=== PATIENT | male | born 1950 | race Caucasian/White ===

== ENCOUNTER 2025-05-21 10:18 | Inpatient (IN) | payer OTHER, SELFPAY ==
[2025-05-20 22:48] VITALS: BMI 32.9
[2025-05-20 23:00] VITALS: BP 105/54
[2025-05-20 23:05] LABS: Hematocrit 23.5 % (39.0-52.0); Hemoglobin 8.0 g/dL (13.0-18.0); Mean Corp Hgb Conc. 34.0 g/dL (33.0-37.0); Mean Corpuscular Volume 83.9 fL (80.0-94.0); Nucleated Red Blood Cells % 0 % (-); Platelet Count 206 10^3/uL (130-400); Red Cell Dist. Width 13.7 % (11.5-14.5)
[2025-05-20 23:23] LABS: ALT (SGPT) 16 U/L (0-50); AST (SGOT) 24 U/L (17-59); Albumin 3.4 g/dl (3.5-5.0); Alkaline Phosphatase 40 U/L (38-126); Blood Urea Nitrogen 43 mg/dl (9-20); Calcium 9.0 mg/dl (8.4-10.2); Carbon Dioxide 28 mmol/L (22-30); Chloride 100 mmol/L (98-107); Estimated Creatinine Clearance 82 ml/min; Glucose 90 mg/dl (70-99); Potassium 4.6 mmol/L (3.5-5.1); Sodium 131 mmol/L (135-145); Total Protein 5.5 g/dl (6.3-8.2); eGFR > 60.00
[2025-05-20 23:36] LABS: Troponin I 0.013 ng/ml
[2025-05-20 23:57] VITALS: BP 142/66
[2025-05-21] VITALS (19 sets, daily range): BP systolic 100–150; BP diastolic 52–77; PULSE 72–82; BMI 28.1
--- NOTE | 2025-05-21 00:59 | ED.GENMED ---
History of Present Illness
General
Chief Complaint: Chest Pain
Source: patient
Exam Limitations: none
Time Seen by Provider: 05/20/25 23:04
Nursing documentation reviewed up to this point in time: agreed with
History of Present Illness
History of Present Illness:
Note:
CHIEF COMPLAINT(S)
Faintness, chest pain, and light-headedness.
HISTORY OF PRESENT ILLNESS
The patient is a 74-year-old male who presents with symptoms of faintness, chest pain, and light-headedness over the past 24 hours. The symptoms are particularly noticeable when standing up, necessitating the patient to sit down to recover. The
patient reports a significant episode of feeling faint at 2:00 AM while getting up to use the bathroom. Around 9:30 PM, while sitting down, the patient experienced chest pain, which intensified while ascending the stairs, rated as a 9 or 10 in
severity. The patient has a history of a myocardial infarction 27 years ago and has two stents in the right coronary artery. The patient is followed by a alligator hunter in [place]. The patient denies any recent episodes of blood in the stool,
though notes having a dark stool this morning. The patient also mentions a history of feeling dizzy, attributing previous incidents to a viral cause.
PAST MEDICAL AND SURGICAL HISTORY
The patient has a history of myocardial infarction, with two coronary artery stents placed. Also, the patient had his left shoulder replaced and was previously admitted for severe constipation. There is a history of aortic stenosis.
ADDITIONAL HISTORY OBTAINED FROM SOURCES OTHER THAN THE PATIENT
The patient�s family member noted a shared experience of dizziness, implying a possible viral cause, though the patient remains symptomatic.
CHRONIC MEDICAL CONDITIONS SIGNIFICANTLY AFFECTING CARE
Coronary artery disease with a history of stents.
Aortic stenosis with a known murmur.
MEDICATIONS
The patient is on Atorvastatin, daily aspirin, and Valsartan.
REVIEW OF SYSTEMS
- Cardiovascular: Reports chest pain, with past episodes similar to previous myocardial infarction symptoms.
- Gastrointestinal: Dark stool noted this morning.
- Neurological: Reports periods of faintness and light-headedness.
PHYSICAL EXAM
General: Alert, no acute distress, but reported as appearing pale.
Skin: Warm, dry. pale
Head: Normocephalic, atraumatic.
Neck: Supple, trachea midline.
Eye, Ears, Nose, Mouth and Throat: Oral mucosa moist.
Cardiovascular: Normal peripheral perfusion, no edema. systolic murmur
Respiratory: Respirations are non-labored.
Gastrointestinal: Abdomen nondistended.
Back: Normal range of motion, normal alignment.
Musculoskeletal: Normal range of motion, normal strength.
Neurological: Alert and oriented to person, place, time, and situation, no focal neurological deficit observed.
Psychiatric: Cooperative, appropriate mood & affect.
PROBLEM LIST
Acute Problems:
- Chest pain with presumed cardiac origin.
- Faintness and light-headedness.
Chronic Problems:
- Coronary artery disease.
- Aortic stenosis.
PLAN
- Full cardiac workup including labs and EKG comparison with prior records.
- Consideration for anemia due to appearance and symptoms; will investigate further with laboratory tests.
- Consultation with the patient�s alligator hunter and review of previous cardiac testing, if possible.
- Observation and further assessment to determine the need for a stress test, with a preference for a nuclear stress test to avoid false positives.
DIFFERENTIAL DIAGNOSIS
The Differential Diagnosis includes, in no particular order and is not limited to:
1. Myocardial infarction
2. Angina
3. Anemia
4. Aortic stenosis
5. Syncope
6. Gastrointestinal bleed
7. Cardiac arrhythmia
8. Pulmonary embolism
9. Viral syndrome
10. Orthostatic hypotension
EKG
My independent EKG interpretation is:
- EKG time: 10:51 p.m.
- Rhythm: Normal sinus rhythm
- Heart rate: 64 bpm
- Intervals: Normal
- [place]: Upper normal axis
- Abnormalities: ischemia pattern present
Disposition:
SUMMARY OF ENCOUNTER
The patient is a 74-year-old male presenting with chest pain and dyspnea. In the emergency department, his hemoglobin was found to be low at 8 g/dL, and a rectal exam revealed a positive hemoccult test, indicating potential gastrointestinal
bleeding. The hemoccult card was bright blue after applying the developer, suggesting a positive result despite being grossly negative. Troponin levels were in the normal range, reducing the likelihood of an acute myocardial infarction. Due to these
findings, especially the concern for anemia and possible gastrointestinal bleeding, the decision was made to admit the patient for further evaluation and management.
DISPOSITION
Admit
ASSESSMENT
Suspected gastrointestinal bleeding contributing to anemia and subsequently causing chest pain and dyspnea.
PLAN
Admit the patient to the hospitalist service for further evaluation of chest pain and anemia with a focus on diagnosing and managing potential gastrointestinal bleeding.
INDEPENDENT REVIEW OF LABS AND INTERPRETATION OF TESTS
- My independent review of the hemoglobin indicates a level of 8 g/dL, suggesting anemia.
- My independent review of the hemoccult test is positive, indicating potential gastrointestinal bleeding.
- My independent review of troponin is within the normal range.
MEDICATION RECONCILIATION
None mentioned.
MEDICAL DECISION MAKING
- Number and Complexity of Problems Addressed: Chronic conditions affecting care include coronary artery disease and aortic stenosis. Differential diagnosis includes myocardial infarction, angina, anemia, aortic stenosis, syncope, gastrointestinal
bleed, cardiac arrhythmia, pulmonary embolism, viral syndrome, orthostatic hypotension.
- Data:
- Category 1: Lab tests reviewed include CBC with low hemoglobin and a positive hemoccult.
- Category 2: My independent interpretation of the EKG shows normal sinus rhythm with no acute ischemic changes.
- Category 3: None mentioned.
- Risk: Given the positive hemoccult test and anemia, there is a high risk for complications related to possible gastrointestinal bleeding. Therefore, the decision was made to admit for thorough inpatient evaluation and management.
DIAGNOSIS
- Anemia, unspecified (ICD-10: D64.9)
- Gastrointestinal hemorrhage, unspecified (ICD-10: K92.2)
Past History
Past History
ED Past Medical History: CAD, Hypercholesterolemia and Psychiatric (Depression)
ED Past Surgical History: Orthopedic (Left shoulder replacement 06/05/23)
Social History
Tobacco: Non-smoker
Alcohol: Occasional
Personal: Single
Living: alone
Phy Exam
Physical Exam
Physical Exam:
.
Scores
Heart Score for Chest Pain Patients
STEMI patient?: No
History: Moderately Suspicious
ECG: Normal
Age: >/= 65 years
Risk Factors: 1 or 2 Risk Factors
Troponin: </= Normal Limit
Heart Score for Chest Pain Patients: 4
Heart Score Risk: 20.3% MACE over next 6 weeks
Course
Orders/Labs/Results
Orders:
Orders
05/20/25 22:47
Electrocardiogram (*1) Urgent
Reason for Study: Chest Pain
Cardiac Monitoring- Treatment ONCE
EKG- Treatment ONCE
IV Insert/Care/Rem.- Treatment PRN
O2 Therapy [RESP] Urgent
Titrate/Wean O2 to maintain O2 sat greater than (%): 90
Special Instructions: Maintain sats >/=90%
Pulse Ox/spot Check [RESP] Urgent
Quantity: 1
Special Instructions: ON ROOM AIR
05/20/25 22:54
Complete Blood Count/With Diff Urgent
Comprehensive Metabolic Panel Urgent
TSH Reflex To Free T4 Urgent
Comment: ADD ON
Troponin I Urgent
05/21/25 00:33
Add On- LAB Urgent
Tests Added?: TSH
05/21/25 00:59
Electrocardiogram (*1) Urgent
Reason for Study: Chest Pain
EKG- Treatment ONCE
05/21/25 01:08
Troponin I Urgent
05/21/25 01:51
Pantoprazole [Protonix IV] 80 mg IV NOW STA
05/21/25 02:00
Pantoprazole 80 mg/100 ml Nss [Protonix] 80 mg in 100 ml IV Q10H
05/21/25 02:27
Type And Crossmatch [Type+Screen] Urgent
05/21/25 03:07
ABO2 Routine
BBK Wristband Number:
Associate notified that ABO2 has been ordered: [id number]
Date: 05/21/25
Time: 02:59
Supervisor Post Wave ID: [id number] [facility] [place]
05/21/25 Breakfast
NPO
Allow oral meds: Yes
Allow clear liquids: No
05/21/25 09:42
Admit/Transfer Patient As Directed
Co-Sign Provider:
Level of Care: Inpatient admission
Assign to:: Telemetry
Physician / Group: Hospitalist
Diagnosis: GIB,Chest pain
Reason for Telemetry: Chest Pain syndromes
Date to Stop Telemetry: 05/23/25
Time to Stop Telemetry: 11:00
Reason for Hospitalization: Anemia, chest pain
Expected length of stay greater than two midnights?: Yes
ELOS- Estimated Length of Stay in days: 2
I certify the patient meets the requirements for IP care: Yes
PRN Pain Medication Management As Directed
May give lesser potent ordered pain med per pt: Yes
preference::
Protocol:: Medication orders for pain may be administered in a
manner that supports deferring to patient preference
when the pt is:
- Requesting an ordered lesser potent pain medication.
Least to most potent pain medications are defined
as: acetaminophen < NSAID < tramadol < opioids
(morphine, oxycodone, hydromorphone).
- Requesting a lesser dose of the same medication IF
ORDERED.
- Requesting a less intrusive route of administration
if both routes are prescribed by the provider (PO <
IV).
05/21/25 09:43
Code Status As Directed
Resuscitation Status: Full Code
05/21/25 09:52
Electrocardiogram (*1) Q6H
Reason for Study: Chest Pain
Comment: at admission and Q3H for total of 3, to be done with each troponin
05/21/25 09:52
Echo 2D MMode Color/Doppler Routine
Reason for Study: chest pain
CARDIOLOGY CONSULT Routine
Consulting Provider: Prateek Levin
Was physician already notified: Yes
Reason for consult: chest pain
GASTROINTESTINAL CONSULT Routine
Consulting Provider: Anastasia Paredes
Was physician already notified: Yes
Reason for consult: Heme positive stools, Anemia
05/21/25 10:02
BMP [Basic Metabolic Panel] Urgent
CBC/No Diff [Complete Blood Count/No Diff] Urgent
Ferritin Urgent
Comment: ADD ON
Iron Urgent
Comment: ADD ON
Magnesium Urgent
Total Iron Binding Urgent
Comment: ADD ON
Troponin I Q3H
Comment: at admit & Q3H for 3 total including ED draws, obtain ECG with each level
Vitamin B12 Urgent
Comment: ADD ON
05/21/25 13:04
NT-proBNP Routine
Troponin I Q3H
Comment: at admit & Q3H for 3 total including ED draws, obtain ECG with each level
05/21/25 14:51
Aspirin Chewable [Low Strength Aspirin] 81 mg PO DAILY
05/21/25 14:51
Activity As Directed
Activity Level: Bedside Commode
With Assistance
INT (Intravenous Needle Therapy) As Directed
Comment: Place 2 IV catheters of the largest bore possible until stable
INT (Intravenous Needle Therapy) As Directed
Comment: maintain peripheral IV access
Intake/ Output As Directed
Frequency: Per unit guidelines
Orthostatic Vital Signs As Directed
Orthostatic VS Frequency: Now
Comment: then every four hours for twenty-four hours
Pneumatic Compression Sleeves As Directed
Type: Knee high
Vital Signs As Directed
Frequency: q4h
Weight As Directed
Frequency: Daily
DX Deep Vein Thrombosis Video Routine
05/21/25 15:00
0.9% Sodium Chloride 1000 ml [Nss] 1,000 ml IV 60 mls/hr
05/21/25 15:52
Electrocardiogram (*1) Q6H
Reason for Study: Chest Pain
Comment: at admission and Q3H for total of 3, to be done with each troponin
05/21/25 16:10
Glycohemoglobin (HgbA1c) Routine
H&H Q6H
05/21/25 20:51
H&H Q6H
05/21/25 22:00
Pravastatin Sodium [Pravachol] 40 mg PO HS
Venlafaxine Extended Release [Effexor Xr] 150 mg PO HS
05/22/25 02:51
H&H Q6H
05/22/25 06:00
Complete Blood Count/No Diff IN AM
Complete Blood Count/With Diff IN AM
05/23/25 11:00
DC Protocol for Telemetry ONCE
Abnormal Lab Results
05/20/25 05/21/25
22:54 10:02
RBC 2.80 L 10^6/uL 2.85 L 10^6/uL
(4.70-6.10) (4.70-6.10)
Hgb 8.0 L g/dL 7.9 L g/dL
(13.0-18.0) (13.0-18.0)
Hct 23.5 L % 23.9 L %
(39.0-52.0) (39.0-52.0)
Sodium 131 L mmol/L
(135-145)
Chloride 108 H mmol/L
(98-107)
BUN 43 H mg/dl 28 H mg/dl
(9-20) (9-20)
Glucose 100 H mg/dl
(70-99)
Iron 36 L ug/dl
(49-181)
% Saturation 13 L %
(20-50)
Troponin I 0.065 H* ng/ml
Total Protein 5.5 L g/dl
(6.3-8.2)
Albumin 3.4 L g/dl
(3.5-5.0)
05/21/25 10:02
05/21/25 10:02
Vital Signs
Initial and Last Documented VS:
Initial Vital Signs
Pulse Resp
66 23
05/20/25 22:47 05/20/25 22:47
Last Documented Vital Signs
Temp Pulse Resp BP Pulse Ox
98.4 F 77 19 111/66 98
05/21/25 15:00 05/21/25 15:00 05/21/25 15:00 05/21/25 15:00 05/21/25 15:30
*Pulse Oximetry
SaO2: 100
Oxygen Mode of Delivery: Room air
Patient hypoxic: no
*Critical Care Note
Total Time (30-74mins, 75-104mins- exclusive of procedures): 32 (Critical care statement: A total of 32 minutes of critical care time was provided for this patient. This time is separate from time utilized to perform the aforementioned documented
procedures. Aggregate critical care time includes only time during which I was engaged in work directl)
Update Note
Update Note:
EKG shows normal sinus rhythm rate of 63 with normal intervals, normal axis. No evidence of present. When compared to previous EKG earlier today there is no obvious interval change noted
Blood consent signed by patient and his scanned in on the chart
ED Attending Note
-
Portions of this chart may have been created with voice recognition software.� Occasional wrong word or��sound alike� substitutions may have occurred due to the inherent limitations of voice recognition software.
Discharge Plan
Departure
Patient Disposition: Admit
Date of Disposition: 05/21/25
Time of Disposition: 01:58
Admit to: IVU
Presentation/result/management discussed w/ accepting MD/DO: Hospitalist
Condition: Serious
Discharge Problem:
GI (gastrointestinal bleed), Chest pain, Anemia
Interventions
Interventions:
*Risk Screen - Suicide Last Done: 05/20/25 22:50
*General Assessment Last Done: 05/20/25 22:50
*Neglect/Abuse Screening Last Done: 05/20/25 22:50
*ED- Fall Risk Assessment Last Done: 05/20/25 22:50
*ED COVID-19 Vaccine History Last Done: 05/20/25 22:50
*Nursing Disposition Last Done: 05/21/25 14:40
ED- Cardiac Assessment Last Done: 05/21/25 13:08
Discharge Date and Time
Discharge Date/Time: 05/21/25 14:40
[2025-05-21 01:52] LABS: Troponin I 0.020 ng/ml
[2025-05-21] MEDS: PROTONIX IV 80 MG IV (02:30)
[2025-05-21] MEDS: PROTONIX 100 IV ×2 (02:31→10:58)
--- NOTE | 2025-05-21 08:55 | EDRN ---
Dr. Ray in charge of hospitalist group TT'd at this time as pt has no admission orders and was admitted overnight per nurse whom this RN got report from. He said unaware of pt admission. Dr. Tipton called who will contact DR. Palacios. Dr. Conklin
in the meantime assigned pt to Dr. Baker.
--- NOTE | 2025-05-21 09:19 | HPS.HSE ---
Family Physician
-
Family Physician: MICHELLE Gaona
Chief Complaint
-
Chest pain
History of Present Illness
74-year-old pleasant male presented to the hospital with chest pain and lightheadedness which he noticed mostly when standing up. He has been having some dizziness while standing. Noted 1 black stool yesterday morning. He had dinner and was
sitting in a chair when he felt around 4-5 out of 10 chest pain. He then went upstairs when he felt more symptomatic chest pain in the middle of the chest. He felt his left arm also felt slight numbness. He will some shortness of breath along
with all this. No NSAIDs recently.
Medical History
Past Medical History
Past Medical History: Reports Other
Additional Past Medical History:
Aortic stenosis, coronary disease with stents, hypertension, hyperlipidemia, arthritis, anxiety/depression
Past Surgical History: Reports Other
Additional Past Surgical History:
Cardi catheterization, bilateral shoulder replacement, bilateral knee replacement
Social History
Tobacco: Former Smoker (Quit in 1980s)
Alcohol: Other (Twice a week)
Drug: None
Employment: Employed ([employer])
Family History
Family History: Cancer (Father had liver cancer) and Other (Mother with some kind of cancer he is not able to recollect)
Allergies / Home Medications
Allergies reflects when Allergies were last updated in [employer].
Home Medications with original date entered in [employer]
Allergy/Medication List:
Allergies
Allergy/AdvReac Type Severity Reaction Status Date / Time
No Known Allergies Allergy Unverified 10/09/20 14:13
Home Medications
aspirin 81 mg tablet 81 mg PO DAILY 05/21/25
pravastatin 40 mg tablet 40 mg PO HS 05/21/25
valsartan 80 mg tablet 80 mg PO DAILY 05/21/25
venlafaxine 150 mg capsule,extended release 24 hr 150 mg PO HS 05/21/25
Review of Systems
-
History Source: Patient
Respiratory: Reports Trouble Breathing
Cardiac: Reports Chest Pain
Abdomen/GI: Reports Black Stools; Denies Vomiting
Physical Exam
Vital Signs
Vital Signs
Temp Pulse Resp BP Pulse Ox
98.1 F 68 13 114/67 98
05/20/25 22:50 05/21/25 09:00 05/21/25 09:00 05/21/25 09:00 05/21/25 08:45
Physical Exam
General: Comfortable and Conversant
Respiratory: Clear
Cardiac: S1/S2, Regular Rhythm and Murmur (aa)
GI: Soft, Non Tender and Normal Bowel Sounds
Musculoskeletal: No Edema
Neuro: Awake, Alert, Oriented and Nonfocal/grossly intact
Psych: Intact Judgment/Insight
Laboratory Results
-
05/20/25 22:54
05/20/25 22:54
Laboratory Results
Total Bilirubin 0.3 mg/dl (0.2-1.3) 05/20/25 22:54
AST 24 U/L (17-59) 05/20/25 22:54
ALT 16 U/L (0-50) 05/20/25 22:54
Alkaline Phosphatase 40 U/L (38-126) 05/20/25 22:54
Troponin I 0.020 ng/ml D 05/21/25 01:08
Data Reviewed
-
Medical Tests (Nuc Med, Echo, EKG etc): Other (EKG-sinus rhythm cannot rule out anterior infarct)
Impression/Plan
-
IMPRESSION/PLAN:
# Chest pain
At rest and with exertion yesterday
Unclear if this is GI related versus cardiac
No acute EKG changes, troponin 2 sets negative
He does have aortic stenosis murmur
Check echo
Follow-up more troponin
Continue aspirin
Cardiology evaluation
Patient follows up with Dr. Sharad Edwards at [facility] in [place]
# Anemia-likely secondary to subacute GI blood loss
Possible upper GI bleed-elevated BUN noted
Heme positive stools
Follow hemoglobin
Iron studies ordered
Type and screen already done
Continue Protonix drip
Keep n.p.o. in case GI wants to do endoscopy
Patient states that he has a history of peptic ulcer disease in the past
Last colonoscopy was over 10 years ago
No weight loss
# Hyperlipidemia-continue statin
# Hypertension-continue valsartan
# Anxiety and mild depression-continue venlafaxine
# Remote smoking history-quit in
# DVT prophylaxis-SCDs
# Full code
Plan of care discussed with the patient in agreement. Discussed that he may need blood transfusion if hemoglobin drops
Part of this note was created using voice recognition system. Occasional wrong word or��sound alike� substitutions may have inadvertently occurred due to the inherent limitations of voice recognition software. If noted kindly bring it to my
attention for correction.
--- NOTE | 2025-05-21 09:40 | EDRN ---
Dr. Baker in to see pt.
[2025-05-21 10:08] LABS: Hematocrit 23.9 % (39.0-52.0); Hemoglobin 7.9 g/dL (13.0-18.0); Mean Corp Hgb Conc. 33.1 g/dL (33.0-37.0); Mean Corpuscular Volume 83.9 fL (80.0-94.0); Platelet Count 188 10^3/uL (130-400); Red Cell Dist. Width 13.8 % (11.5-14.5)
[2025-05-21 10:30] LABS: Blood Urea Nitrogen 28 mg/dl (9-20); Calcium 9.3 mg/dl (8.4-10.2); Carbon Dioxide 29 mmol/L (22-30); Chloride 108 mmol/L (98-107); Estimated Creatinine Clearance 92 ml/min; Glucose 100 mg/dl (70-99); Magnesium 1.8 mg/dl (1.6-2.3); Potassium 4.2 mmol/L (3.5-5.1); Sodium 138 mmol/L (135-145); eGFR > 60.00
[2025-05-21 10:49] LABS: Troponin I 0.065 ng/ml
--- NOTE | 2025-05-21 11:02 | EDRN ---
Samuel was TT'd as troponin is again increased, now 0.065. Stephie ED PCT is getting EKG now.
--- NOTE | 2025-05-21 11:15 | EDRN ---
Echocardiogram being done at this time.
--- NOTE | 2025-05-21 11:52 | EDRN ---
[employer]essionals in room w/ pt at this time.
--- NOTE | 2025-05-21 11:52 | CM ---
CM reviewed chart and met with pt bedside in ED. Lives alone, 2 story town home, no LUTHER, has first floor half BA, second floor BR/full BA. from but confirms she is primary contact.
Independent in ADLs, personal care and ambulation at baseline, no assistive devices. Still driving and working.
No hx VN or SNF
PCP: Adis Perkins
Pharmacy: [facility]
Anticipate discharge home, CM will continue to follow for all discharge planning needs.
--- NOTE | 2025-05-21 12:14 | CON.CAR ---
Addendum entered and electronically signed by Prateek Levin MD 05/21/25 16:12:
I saw and examined the patient.
The Data Technical Lead's note was reviewed and I agree with the note.
Comment: Briefly, 74-year-old man past medical history coronary artery disease with remote RCA PCI (1996) and known aortic stenosis who presents for evaluation of chest discomfort, dyspnea, lightheadedness and fatigue over the past few days.
Echo here shows that his aortic stenosis has progressed and is now severe
In addition, hemoglobin this morning was 7.9
Suspect that his symptoms are multifactorial in part related to anemia as well as aortic stenosis and fixed coronary disease.
At the time my evaluation patient was resting comfortably in bed and tells me he has been asymptomatic throughout the day today
Appears euvolemic on exam and proBNP is within normal limits
Evaluated by GI and plan is for EGD and colonoscopy to investigate the cause of his anemia- patient is not at prohibitive risk to proceed
Troponin elevation 0.02�0 0.065�0.091
Patient is currently chest pain-free
Nonspecific ST/T wave changes noted on ECG
No regional wall motion abnormality seen on echo
Would trend troponin to peak
Continue aspirin and statin
Overall suspect nonischemic myocardial injury troponin elevation in the setting of anemia and severe aortic stenosis
Discussed with patient and his at bedside
Original Note:
Consultation
Consultation Request
Date/Time Consultation Performed: 05/21/25
Requesting Provider: Dr. Baker
Performing Provider: Manisha Schmitz PA-C for Dr. Levin
Reason for Consultation: CP
Medical History
-
Chief Complaint: CP
History of Present Illness:
Patient is a 74 yo M with PMH of CAD s/p RCA PCI x2 in 1996, which has been mild and stable for 'many years', HTN, HLD who presents to [facility] due to episode of chest pain last evening. He reports on Monday morning around 2AM he got up to go to the
bathroom and reports he felt faint. He states this happened again later in the morning as well. He states he felt tired throughout the day on Monday. He then states on Monday evening he noted onset of central chest pain, made particularly worse
with going up the stairs. He laid down on his bed and called EMS and the pain resolved. On arrival to ER noted to have hgb of 7.9. He denies history of anemia to his knowledge and takes many supplements including iron. He denies noting dark or
bloody stools. He continues to take asa 81mg daily. Cardiology consulted for evaluation.
PMH:
CAD s/p RCA PCI x2 1996
History of gastric ulcer ~15 years ago
mild
HTN
HLD
Past Medical History
Past Medical History: Other (in HPI)
Social History
Tobacco: Former Smoker
Alcohol: Occasional
Personal:
Living: With Family
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
Family History
Family History: Cancer
Allergies / Home Medications
Allergy/AdvReac Type Severity Reaction Status Date / Time
No Known Allergies Allergy Unverified 10/09/20 14:13
�Medication �Instructions �Recorded �Confirmed �Type
aspirin 81 mg tablet 81 mg PO DAILY 05/21/25 05/21/25 History
pravastatin 40 mg tablet 40 mg PO HS 05/21/25 05/21/25 History
valsartan 80 mg tablet 80 mg PO DAILY 05/21/25 05/21/25 History
venlafaxine 150 mg 150 mg PO HS 05/21/25 05/21/25 History
capsule,extended release 24 hr
Review of Systems
-
History Source: Patient
All other systems: Negative unless noted
Physical Exam
Vital Signs
Temp Pulse Resp BP Pulse Ox
98.1 F 67 16 120/64 100
05/20/25 22:50 05/21/25 11:45 05/21/25 11:45 05/21/25 11:00 05/21/25 11:15
Lab Results
05/21/25 10:02
05/21/25 10:02
Troponin I 0.065 ng/ml H* 05/21/25 10:02
Physical Exam
General: No Apparent Distress and Comfortable
HEENT: Normocephalic, Anicteric and Moist Mucous Membranes
Respiratory: Clear and Non Labored Respirations
Cardiac: S1/S2, Regular Rhythm and Murmur
GI: Soft, Non Tender, Non Distended and Normal Bowel Sounds
Musculoskeletal: No Clubbing, No Cyanosis and No Edema
Skin: Warm and Dry
Neuro: AO x 3
Impression / Plan
-
Primary Material Cutter: Dr. Edwards of [facility] in [place]
Assessment:
Presentation with CP
Acute anemia
CAD s/p RCA PCI x2 1996
History of gastric ulcer ~15 years ago
mild
HTN
HLD
ECHO 05/21/25: pending
Plan:
-Patient presents with episode of chest discomfort after climbing a flight of stairs. He also reported intermittent dizziness for 24 hours prior to episode.
-Noted to be anemic with hgb of 7.9. work up per primary service. currently on IV PPI. has history of remote gastric ulcer. hemetest stools
-trops detectable but within normal range thus far. no present CP.
-EKG without acute ischemic changes noted
-echo pending. he has history of mild by his report
-will obtain records from primary investigative reporter office for review
-suspect anemia/hypotension in setting of prior CAD/valve disease fueling his chest discomfort.
-continue asa 81mg as ok per GI/heme
Data Reviewed
-
EKG: Tracing Personally Visualized and interpreted
Labs: Labs Reviewed by me
Old Records: Requested and Reviewed
--- NOTE | 2025-05-21 13:10 | EDRN ---
next q 3 hour troponin drawn and sent at this time.
--- NOTE | 2025-05-21 13:42 | EDRN ---
No Delay Nurse Report sent to 3rd floor W for TEl bed 318.2 at this time. Call placed to floor and message left for RN who will care for pt to call me for verbal report.
--- NOTE | 2025-05-21 13:45 | EDRN ---
Oral report given to RN who will care for pt on 3rd floor W.
[2025-05-21 13:49] LABS: Troponin I 0.091 ng/ml
--- NOTE | 2025-05-21 13:55 | EDRN ---
Troponin resulted at 0.091 so up again. Just TT'd Dr. Baker result.
--- NOTE | 2025-05-21 14:18 | CON.GI ---
Consultation
-
Date/Time Consultation Requested: 05/21/25 at 11am
Date/Time Consultation Performed: 05/21/25 at 1pm
Requesting Provider: cuba
Performing Provider: omari
Reason for Consultation: anemia
Medical History
Chief Complaint / HPI
Chief Complaint: anemia
History of Present Illness:
This patient is a 74-year-old man with history of coronary disease with intervention in 1996 and has been stable for many years, he has history also of hypertension. He did have an episode of chest pain a day and a half ago and felt faint. His
symptoms recurred and he did call EMS. In the emergency room he was found to have a hemoglobin of 7.9. He states he sees his primary doctor regularly and has never been told he has anemia. He does take supplements and exercises and eats healthy.
He has not noticed any change in bowel pattern or dark stools although it was noted that he was heme positive with dark stools in the emergency room. He does not take anticoagulation and is only on aspirin. He does not have any upper or lower GI
symptoms. He does mention an EGD back about 15 years ago for a gastric ulcer. He does not note taking NSAIDs or being told he has H. pylori. He did have a routine colonoscopy about 10 years ago and thinks he is due again
Past Medical History
Past Medical History: Other (Coronary disease, gastric ulcer, hypertension, hyperlipidemia)
Past Surgical History: Other (none)
Social History
Tobacco: Former Smoker
Family History
Family History: Reviewed & Not Pertinent
Allergies / Home Medications
Allergy/AdvReac Type Severity Reaction Status Date / Time
No Known Allergies Allergy Unverified 10/09/20 14:13
�Medication �Instructions �Recorded
aspirin 81 mg tablet 81 mg PO DAILY 05/21/25
pravastatin 40 mg tablet 40 mg PO HS 05/21/25
valsartan 80 mg tablet 80 mg PO DAILY 05/21/25
venlafaxine 150 mg 150 mg PO HS 05/21/25
capsule,extended release 24 hr
Review of Systems
-
All other systems: A 12 pt ROS was Negative except as stated above in HPI
Vital Signs
Temp Pulse Resp BP Pulse Ox
98.5 F 69 11 118/62 98
05/21/25 13:00 05/21/25 13:00 05/21/25 13:00 05/21/25 13:00 05/21/25 13:00
Physical Exam
Exam
General: Well Developed
HEENT: Normocephalic and Anicteric
Cardiac: S1/S2
GI: Soft and Non Tender
Skin: Warm
Neuro: Awake
Psych: Calm
Results
WBC 6.0 10^3/uL (4.8-10.8) 05/21/25 10:02
Hgb 7.9 g/dL (13.0-18.0) L 05/21/25 10:02
Hct 23.9 % (39.0-52.0) L 05/21/25 10:02
MCV 83.9 fL (80.0-94.0) 05/21/25 10:02
Plt Count 188 10^3/uL (130-400) 05/21/25 10:02
Absolute Neuts (auto) 5.2 10^3/uL (1.4-6.5) 05/20/25 22:54
Sodium 138 mmol/L (135-145) 05/21/25 10:02
Potassium 4.2 mmol/L (3.5-5.1) 05/21/25 10:02
Chloride 108 mmol/L (98-107) H 05/21/25 10:02
Carbon Dioxide 29 mmol/L (22-30) 05/21/25 10:02
BUN 28 mg/dl (9-20) H 05/21/25 10:02
Creatinine 0.8 mg/dL (0.7-1.3) 05/21/25 10:02
Calcium 9.3 mg/dl (8.4-10.2) 05/21/25 10:02
Total Bilirubin 0.3 mg/dl (0.2-1.3) 05/20/25 22:54
AST 24 U/L (17-59) 05/20/25 22:54
ALT 16 U/L (0-50) 05/20/25 22:54
Alkaline Phosphatase 40 U/L (38-126) 05/20/25 22:54
Assessment / Plan
-
This patient is a 74-year-old man who has a history of coronary disease in the remote past who also has a history of gastric ulcer 15 years ago. He is found to have anemia likely causing chest pain and fatigue. For now we will do the following
- Discussed with cardiology and okay to proceed with endoscopic procedures as symptoms likely due to underlying anemia
- Discussed with patient regarding both endoscopy and colonoscopy. He does take a high-fiber diet and he does know we will be giving him a gallon preparation. He does want to proceed with the procedures and I will be scheduled.
- I will biopsy for H. pylori as well as he did have an ulcer in the past of unknown etiology.
- Okay to continue with aspirin.
-
-
Thank you for consultation and allowing me to participate in the patient's care. Please call the obstetrics nurse practitioner GI physician during the after hours with any questions or concerns.
[2025-05-21] MEDS: DULCOLAX 10 MG PO (15:14)
[2025-05-21] MEDS: LOW STRENGTH ASPIRIN 81 MG PO (15:15)
--- NOTE | 2025-05-21 15:26 | W.PN.UPDATE ---
Update Note
Progress Note Update
records obtained from primary box blank machine operator helper, Dr. Rio Edwards in [facility] phone : [phone]. Patient last seen in office 05/11/2023. He has a history of bare-metal stents x 2 to the RCA in setting of inferior myocardial infarction in
[facility]. His last hemoglobin was 13.8 on 05/18/2023. Last echocardiogram from 06/2022 with moderate aortic stenosis with peak gradient 46 mmHg and mean gradient 28.
[2025-05-21] MEDS: NSS 1000 IV (15:36)
--- NOTE | 2025-05-21 16:13 | W.PN.UPDATE ---
Update Note
Progress Note Update
More troponin ordered
GI and cardiology plans noted
Repeat hemoglobin is pending
Iron studies added on
[2025-05-21 16:17] LABS: Hematocrit 23.3 % (39.0-52.0); Hemoglobin 7.8 g/dL (13.0-18.0)
[2025-05-21 16:48] LABS: Iron 36 ug/dl (49-181)
[2025-05-21 16:57] LABS: Total Iron Binding Capacity 272 ug/dl (261-462)
[2025-05-21] MEDS: GAVILAX 238 GM PO (17:10)
[2025-05-21 17:43] LABS: Ferritin 24.7 ng/ml (17.9-464.0)
[2025-05-21 17:57] LABS: Vitamin B12 669 pg/ml (239-931)
[2025-05-21 18:33] LABS: Troponin I 0.134 ng/ml
[2025-05-21] MEDS: PROTONIX IV 40 MG IV (20:50)
[2025-05-21] MEDS: NSS (PRESERVATIVE FREE) 10 ML IV (20:50)
[2025-05-21] MEDS: EFFEXOR XR 150 MG PO (21:02)
[2025-05-21] MEDS: PRAVACHOL 40 MG PO (21:02)
[2025-05-21 21:20] LABS: Hematocrit 26.0 % (39.0-52.0); Hemoglobin 8.5 g/dL (13.0-18.0)
[2025-05-21 21:46] LABS: Troponin I 0.134 ng/ml
[2025-05-22] VITALS (22 sets, daily range): BP systolic 104–145; BP diastolic 55–101; PULSE 69–99; BMI 28.2
--- NOTE | 2025-05-22 01:00 | PTCARENOTE ---
Pt reporting to this RN 6/10 chest pain and a headache of 4/10. Pt described chest pain as pressure and sharpness that comes and goes. Pt had been getting up frequently to use bathroom due to bowel prep for colonoscopy before onset of chest pain
occurred. Pt educated multiple times throughout shift by this RN to use bedside commode for toileting. Pt refusing to use commode. ZACARIAS Little notified of pt's symptoms. EKG, troponin, CBC, BMP, & mag obtained. VSS. Pt also placed on 2 L of
O2 for comfort. At this time, pt reports the pain has subsided. Per ZACARIAS Loving, pt will remain on bedrest for the rest of the night. Pt educated about the need for bedrest. Plan of care ongoing.
--- NOTE | 2025-05-22 01:13 | W.PN.UPDATE ---
Update Note
Progress Note Update
~ 01:00 Asked to see patient for chest pain, that waxes and wanes. At time of evaluation, patient stated is felt like pressure and rated at 6 out of 10, non radiating. By the end of evaluation, patient stated that pain had resolved. Patient denies
palpitation, lightheadedness, dizziness, nausea or shortness of breath. VS stable: BP 127/71, HR 83, 99% on 2L NC for comfort, resp 18, temp 98.8
EKG showed NSR, marked ST abnormality, possible lateral subendocardial injury, abnormal ECG.
Ordered CBC, BMP, troponin. CBC stable, BMP stable, Troponin trending down, peaked at 0.134@ 17:54, @ 01:21 troponin 0.106.
TT to on-call building certifier, Dr. Sharad Navarro, reviewed events, sent EKG. Appreciate recommendations, if pain free no changes, if recurs treat as angina.
[2025-05-22 01:30] LABS: Hematocrit 25.7 % (39.0-52.0); Hemoglobin 8.7 g/dL (13.0-18.0); Mean Corp Hgb Conc. 33.9 g/dL (33.0-37.0); Mean Corpuscular Volume 83.2 fL (80.0-94.0); Platelet Count 198 10^3/uL (130-400); Red Cell Dist. Width 14.1 % (11.5-14.5)
[2025-05-22 01:51] LABS: Blood Urea Nitrogen 19 mg/dl (9-20); Calcium 8.6 mg/dl (8.4-10.2); Carbon Dioxide 25 mmol/L (22-30); Chloride 107 mmol/L (98-107); Estimated Creatinine Clearance 78 ml/min; Glucose 87 mg/dl (70-99); Magnesium 1.8 mg/dl (1.6-2.3); Potassium 4.0 mmol/L (3.5-5.1); Sodium 138 mmol/L (135-145); eGFR > 60.00
[2025-05-22 02:07] LABS: Troponin I 0.106 ng/ml
[2025-05-22] MEDS: GAVILAX 120 GM PO (04:20)
[2025-05-22 07:36] LABS: Troponin I 2.090 ng/ml
[2025-05-22] MEDS: LOW STRENGTH ASPIRIN 81 MG PO (07:36)
[2025-05-22] MEDS: PROTONIX IV 40 MG IV ×2 (07:37→20:38)
[2025-05-22] MEDS: NSS (PRESERVATIVE FREE) 10 ML IV ×2 (07:37→20:37)
[2025-05-22 07:42] LABS: Hematocrit 25.8 % (39.0-52.0); Hemoglobin 8.3 g/dL (13.0-18.0); Mean Corp Hgb Conc. 32.2 g/dL (33.0-37.0); Mean Corpuscular Volume 85.4 fL (80.0-94.0); Nucleated Red Blood Cells % 0 % (-); Platelet Count 196 10^3/uL (130-400); Red Cell Dist. Width 14.0 % (11.5-14.5)
[2025-05-22] MEDS: NSS 1000 IV ×2 (07:49→17:04)
--- NOTE | 2025-05-22 08:49 | W.PN.UPDATE ---
Update Note
Progress Note Update
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
will cancel EGD/colonscopy
should be on PPI bid
hgb stable
--- NOTE | 2025-05-22 08:50 | W.PN.CARDCBS ---
Addendum entered and electronically signed by Elliot Mccall MD 05/22/25 12:23:
74-year-old man with RCA PCI in 1996, known aortic stenosis with last echo in 2021, admitted with hemoglobin of 7.9, chest discomfort, dyspnea, lightheadedness and fatigue, positive troponin and EKG changes
PMH: Inferior WI 1996, gastric ulcer 15 years ago, hypertension, hyperlipidemia aortic stenosis previously moderate
Current meds: Pravastatin 40 mg at bedtime, venlafaxine, aspirin 81 mg a day, pantoprazole 40 IV every 12,
ECHO 05/21/25: Severe peak/mean 81/52 mmHg, GUADALUPE 0.8 cm�, LVEF 65%, normal RV size and function, no AI, mild MR
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
ECG: Sinus rhythm, inferolateral ST segment depression consistent with injury, increased over May 21
Hemoglobin 8.3 BUN and creatinine 19 and 0.8 troponin 2.09, had been 0.1, proBNP is 411
Impression:
Severe aortic stenosis
NSTEMI
History of inferior WI and RCA PCI 1996
Blood loss anemia with heme positive stool
History of peptic ulcer disease
Hypertension
Hyperlipidemia
Plan:
Difficult situation and that he has heme positive stools and non-ST segment elevation WI in the setting of severe aortic stenosis. Suspect true ACS rather than nonischemic myocardial injury from blood loss and aortic stenosis.
At present, colonoscopy and EGD are on hold
Will proceed with cardiac catheterization. Discussed with Dr. Soria and with patient who is agreeable
Thereafter, can determine best management strategy. My understanding is that PCI with DAPT could be performed at elevated but not prohibitive risk per GI. May also be possible to do diagnostic cath only followed by GI evaluation. Clearly a game
day decision.
Original Note:
Today's Communication / Plan
-
keep NPO for LHC
cancelling/postponing colonoscopy for now
cont w/u for anemia
Impression / Plan
-
Primary Technical Specialist: Dr. Edwards of [facility] in [place], [place],
Assessment:
Presentation with CP
troponin uptrending
abnl EKG
Acute anemia, hgb 7.9
CAD s/p RCA PCI with bare-metal stents x2 1996
Inferior WI 1996
History of gastric ulcer ~15 years ago
Severe
HTN
HLD
ECHO 05/21/25: Severe peak/mean 81/52 mmHg, GUADALUPE 0.8 cm�, LVEF 65%, normal RV size and function, no AI, mild MR
Plan:
-Patient presented 05/21/2025 with episode of chest discomfort after climbing a flight of stairs. He also reported intermittent dizziness for 24 hours prior to episode.
-Noted to be anemic with hgb of 7.9. work up per primary service. currently on IV PPI. has history of remote gastric ulcer. hemetest stools
-had 1 episode of chest pain overnight 05/22 when walking back from bathroom which resolved spontaneously.
-trops uptrending, peak 2.0. EKG at time of chest pain with more pronounced ST depressions 1 and V4-V6, horizontal and downsloping up to 2 mm. Repeat EKG this a.m. 05/22/[address] abnormality detectable but within normal range thus
far. no present CP.
-Echo yesterday 05/21 with severe as above.
-Given chest pain with elevated troponins and EKG abnormality (now resolved), recommend left heart cath. Patient is agreeable
-He is currently n.p.o. for colonoscopy/endoscopy however this is being canceled given chest pain.
-continue asa 81mg as ok per GI/heme
Progress Note - Technical Specialist
Subjective
Date of Service: May 22, 2025
Had chest pain overnight when walking back from bathroom, resolved spontaneously and no reoccurrence
Troponin uptrending to 2.0 and EKG with new ST depressions, however ST depressions improved this a.m.
Objective
Labs:
05/22/25 07:03
05/22/25 01:21
Labs
Hgb 8.3 g/dL (13.0-18.0) L 05/22/25 07:03
Hct 25.8 % (39.0-52.0) L 05/22/25 07:03
Plt Count 196 10^3/uL (130-400) 05/22/25 07:03
Sodium 138 mmol/L (135-145) 05/22/25 01:21
Potassium 4.0 mmol/L (3.5-5.1) 05/22/25 01:21
BUN 19 mg/dl (9-20) 05/22/25 01:21
Creatinine 0.8 mg/dL (0.7-1.3) 05/22/25 01:21
Glucose 87 mg/dl (70-99) 05/22/25 01:21
Troponins
05/20/25 05/21/25 05/21/25
22:54 01:08 10:02
Troponin I 0.013 0.020 D 0.065 H*
05/21/25 05/21/25 05/21/25
13:04 17:54 19:15
Troponin I 0.091 H* D 0.134 H* D Cancelled
05/21/25 05/22/25 05/22/25
21:00 01:21 03:00
Troponin I 0.134 H* 0.106 H* Cancelled
05/22/25 05/22/25
07:03 09:00
Troponin I 2.090 H* D Cancelled
Vital Signs and I&O:
Vital Signs
Temp Pulse Resp BP Pulse Ox
98.3 F 69 16 112/55 97
05/22/25 08:30 05/22/25 08:30 05/22/25 08:30 05/22/25 08:30 05/22/25 08:30
Vital Signs
Temp Pulse Resp BP Pulse Ox
98.3 F 69 16 112/55 97
05/22/25 08:30 05/22/25 08:30 05/22/25 08:30 05/22/25 08:30 05/22/25 08:30
Intake & Output
05/20/25 05/21/25 05/22/25 05/23/25
06:59 06:59 06:59 06:59
Intake Total 480 / 480
Output Total 950 / 950
Balance -470 / -470
Physical Exam
Physical Exam
GEN: No distress, awake, Ox3
HEENT: supple, anicteric, mmm
LUNGS: CTA, no wheezes/rales
CV: Reg, S1/S2, 3/6 CHRISTELLE
ABD: soft, BS+, NT/ND
EXT: No edema
NEURO: Gross non-focal
SKIN: No rash
--- NOTE | 2025-05-22 09:48 | W.PN.HOSP.TC ---
Today's Communication/Plan
-
Hold EGD and colonoscopy
Continue to keep n.p.o.
For cardiac catheterization today
Trend troponins
Follow H&H
Assessment / Plan
Assessment / Plan
# Acute recurrent chest pain
Had associated ST-T changes in the lateral leads with chest pain yesterday. Troponin went up to 2 last night.
Clinical concern is for unstable angina.
Unfortunately cannot treat with IV heparin currently because of concern of GI bleed.
He is currently chest pain-free.
Keep n.p.o., hold endoscopy eval as cardiology planning for cardiac cath today.
# History of CAD status post remote bare-metal stent to RCA-on aspirin and statins.
# Anemia-likely secondary to subacute GI blood loss
Possible upper GI bleed-elevated BUN noted
Heme positive stools
Follow hemoglobin-H&H 8.3 which is stable compared to prior readings
Iron studies suggest iron deficiency. Started IV iron.
Type and screen already done
Continue Protonix drip
Holding on endoscopy eval because of chest pain.
Patient states that he has a history of peptic ulcer disease in the past
Last colonoscopy was over 10 years ago
No weight loss
# Hyperlipidemia-continue statin
# Hypertension-continue valsartan
# Anxiety and mild depression-continue venlafaxine
# Remote smoking history-quit in 1980s
# DVT prophylaxis-SCDs
# Full code
Discussed with cardiology and GI regarding plan for today.
Total time spent on today's encounter was 52 minutes which included time spent in counseling the patient/family regarding diagnosis and treatment plan as listed above, goals of care, and symptom management. Case was discussed with nursing staff,
specialists, and care coordinators/case management. All labs and imaging personally reviewed by me. Remainder the time spent in detailed review of previous records, lab data, imaging, and other medical provider documentation.
Part of this note was created using voice recognition system. Occasional wrong word or��sound alike� substitutions may have inadvertently occurred due to the inherent limitations of voice recognition software. If noted kindly bring it to my
attention for correction.
Anticipated Discharge: > 48 hours
Subjective/Interval History
-
Date of Service: May 22, 2025
Last night event noted. He had chest pain.
He describes the chest pain as more an intense pressure 5 out of 10 localized to the left side. It started after he having to go to the bathroom 3 times last night. He is getting colonoscopy prep. He thinks it lasted like less than an hour. Did
not receive any meds.
This is a pain similar to what he had at home 2 days ago. It was more intense 10 out of 10 then.
Denies any shortness of breath. No dizziness.
No recurrence of chest pain since last night.
Objective Data
-
Labs:
Laboratory Results
05/22/25 05/22/25 05/22/25
01:21 01:21 01:21
WBC 8.5
Hgb Cancelled 8.7 L
Hct Cancelled 25.7 L
Plt Count 198
Sodium 138
Potassium 4.0
Chloride 107
Carbon Dioxide 25
BUN 19
Creatinine 0.8
Glucose 87
Calcium 8.6
05/22/25
07:03
WBC 7.2
Hgb 8.3 L
Hct 25.8 L
Plt Count 196
Sodium
Potassium
Chloride
Carbon Dioxide
BUN
Creatinine
Glucose
Calcium
Vital Signs:
Vital Signs
Temp Pulse Resp BP Pulse Ox
98.3 F 69 16 112/55 97
05/22/25 08:30 05/22/25 08:30 05/22/25 08:30 05/22/25 08:30 05/22/25 08:30
I&O
05/21/25 05/22/25 05/23/25
06:59 06:59 06:59
Intake Total 480 / 480
Output Total 950 / 950
Balance -470 / -470
Physical Exam
-
General: Comfortable
Respiratory: Clear to Auscultation and Non Labored Respirations; Negative Accessory Resp Muscle Use
Cardiac: Regular Rhythm, S1/S2 and Murmur; Negative Tachycardic
GI: Soft and Nontender
Neuro: AO x 3
Psych: Calm; Negative Confused
Data Reviewed
-
Labs: Labs Reviewed by me
[2025-05-22 12:15] LABS: Troponin I 5.420 ng/ml
--- NOTE | 2025-05-22 14:14 | CM ---
Patient chart reviewed
For cardiac catheterization today
PLAN: anticipate home, CM to follow for needs
--- NOTE | 2025-05-22 14:54 | ITS.CL.CATH ---
Front Desk Host - Catheterization
Cardiac Catheterization
Procedure Report:
LEFT HEART CATHETERIZATION
Date of Procedure: May 22, 2024
Referring: Elliot Mccall MD
PROCEDURES:
1. Left heart catheterization, coronary angiogram.
2. Moderate sedation.
INDICATION: NSTEMI
ACCESS: Right radial artery, 6Fr. sheath, under US guidance.
HEMODYNAMICS : (mmHg)
AO (s/d) : 134/69
Aortic valve was not crossed given echocardiogram showed severe aortic stenosis
CORONARY FINDINGS
Dominance: Right
Left Main Trunk (LMT): Large-caliber, short left main that trifurcates into a left anterior descending artery, small to medium caliber ramus intermedius branch and the left circumflex artery. There is mild diffuse atherosclerotic plaque.
Left Anterior Descending Artery (LAD): The left anterior descending artery is a large-caliber vessel which gives rise to 2 too small caliber major diagonal branches as it courses through the anterior interventricular groove and wraps around the
apex. There is ostial to proximal hazy 85 to 90% stenosis. Mid LAD at the level of D2 has a eccentric 80% stenosis with distal vessel which appears to be a good bypass target. [id number] collaterals are noted to the RCA. D2 has a eccentric
70% stenosis but is a small caliber vessel.
Ramus Intermedius (RI): There is a medium caliber ramus intermedius branch with ostial 70-80% stenosis and diffuse tubular 50 to 60% proximal stenosis.
Left Circumflex Artery (LCx): The left circumflex artery is a medium to large caliber vessel which gives rise to 1 arborizing OM branch and 2 left posterolateral branches. OM1 has 2 serial 80% stenosis.
Right Coronary Artery (RCA): Small to medium caliber dominant vessel with 90% tubular lesion in the proximal portion, moderate to severe diffuse atherosclerosis in the midportion with a chronic total occlusion distally at the area of prior stent
from 1996 with [id number] collaterals.
SEDATION: 47 minutes of procedural sedation was utilized. IV Midazolam and IV Fentanyl were administered. An independent medical technicians was present to assist with and help manage the patient's level of consciousness and physiologic status.
RADIATION SUMMARY: Fluoro Time (min): 3.4, Dose (mGy): 536, DAP (Gy.cm2) : 40
Closure Device: There were no immediate intra-procedural complications. The sheath was pulled in the labour market economist and a vascular-band applied to the right wrist for radial artery hemostasis using the patent hemostasis technique.
CONCLUSIONS
1. Significant multivessel coronary artery disease.
2. Known severe aortic stenosis by most recent echocardiogram this admission.
RECOMMENDATIONS
1. Wean radial band per protocol. Monitor right hand perfusion and for bleeding from the radial site following removal of the vascular-band following trans-radial access.
2. Continue aggressive medical therapy and risk factor modification for secondary CAD prevention. IV heparin given resting symptoms overnight with rising troponins
3. CT surgery consult for discussion of CABG plus SAVR.
4. Discussed with GI, recommend likely cardiac anesthesia support for EGD and colonoscopy.
5. Will transfuse 2 units of PRBCs given hemoglobin of 8 in the setting of multivessel coronary artery disease, NSTEMI and severe aortic stenosis.
Kimberlee Soria MD, FACC, [facility]
[2025-05-22 15:02] LABS: Glycohemoglobin (HgbA1c) 5.2 % (4.0-5.6)
--- NOTE | 2025-05-22 16:42 | CONSULT.CT ---
Consultation
-
Date/Time Consultation Requested: 05/22/25 1522
Date/Time Consultation Performed: 05/22/25 1445
Requesting Provider: Dr. Kimberlee Still
Performing Provider: ZACARIAS Munoz for Dr. Rodolfo Lubin
Reason for Consultation: Severe and Multivessel CAD with LM disease
Patient History
Physicians
Family Physician: MICHELLE Omer
Outpatient Bioinformatics Engineer: Dr. Edwards of [facility] [phone]
Inpatient Bioinformatics Engineer: Dr. Elliot Mccall of [facility]
History of Present Illness
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
discomfort, dypnea, lightheadedness, and fatigue. Mr. Frazier reported that he began to feel 'faint and dizzy' Monday night after waking up to use the bathroom. He further reported having ongoing lightheadedness and fatigue leading into Monday.
On Monday he experienced 5/10 chest discomfort radiating to his left arm 2 hours after dinner with associated dyspnea and lightheadedness while ascending the stairs. He took Pepto-Bismol which did not alleviate his symptoms he attributed to
heartburn. He called EMS in which he reported to [facility] ED.
Upon presentation, his hemoglobin was noted to be 7.8. He denied any recent dark or tarry stools or known history of anemia. His past medical history is significant for prior gastric ulcer. GI was consulted in which he was referred for an
EGD/Colonoscopy. Cardiology was consulted in which TTE was obtained and revealed normal EF, NRWMA, severe with a peak/mean gradient of 81/52, respectively, GUADALUPE of 0.8, and stage II diastolic dysfunction. Overnight, he reported 6 out of 10,
nonradiating, chest pain that waxes and wanes. He denied any palpitations, lightheadedness, dizziness, nausea, or dyspnea. An EKG showed ST abnormality and troponin's were trended. His colonoscopy/endoscopy were held and he underwent a C with
Dr. Soria which revealed multivessel coronary artery disease including left main disease. Cardiac surgery was consulted for evaluation of severe, symptomatic aortic stenosis and multivessel CAD.
During evaluation, Mr Frazier reported prior presyncopal episodes over the last 2 months in which he had to sit for 5 to 10 minutes to gain resolution of his lightheadedness. He reports his last appointment with his primary civil transportation engineer was about 2
years ago. He has recently endured long hours of work over the last month with increased stress. He is currently chest pain-free and denies any symptoms associated with disease.
Past Medical History
Past Medical History: CAD (IWMI s/p BMS x 2 to RCA (1996)), WONG, HTN, Hypercholesterolemia, PA and Valvular Disease (Aortic Stenosis)
Past Surgical History
Past Surgical History: Orthopedic (Former should/knee replacement)
Dental History
Last known dental appointment 6 months ago. Next appointment scheduled for June.
Family History
Mother: Cause of (Cancer)
Father: Cause of (Cancer)
Family Medical History: CAD and Cancer
Social History
Alcohol: Occasional
Drug: None
Tobacco: Former Smoker (1 PPD/10-years, quit in s)
Personal:
Living: Alone
Employment: Employed
Allergies
Allergy/AdvReac Type Severity Reaction Status Date / Time
No Known Allergies Allergy Unverified 10/09/20 14:13
Home Medications
�Medication �Instructions �Recorded �Confirmed �Type
aspirin 81 mg tablet 81 mg PO DAILY 05/21/25 05/21/25 History
pravastatin 40 mg tablet 40 mg PO HS 05/21/25 05/21/25 History
valsartan 80 mg tablet 80 mg PO DAILY 05/21/25 05/21/25 History
venlafaxine 150 mg 150 mg PO HS 05/21/25 05/21/25 History
capsule,extended release 24 hr
Review of Systems
-
History Source: Patient
General: Reports No Symptoms
HEENT: Reports No Symptoms
Respiratory: Reports WONG
Cardiac: Reports CAD and Known Vascular Disease
Abdomen/GI: Reports Ulcers and Other (heartburn)
: Reports No Symptoms
Musculoskeletal: Reports No Symptoms
Skin: Reports No Symptoms
Neurological: Reports Dizzy and Other (previous pre-syncopal episodes)
Vascular: Reports No Symptoms
Physical Exam
Vital Signs
Temp 98.8 F 05/22/25 11:35
Temp route: Oral 05/22/25 11:35
Pulse 73 05/22/25 15:35
Rhythm: Normal sinus rhythm 05/22/25 08:00
Resp Rate 17 05/22/25 11:35
Blood pressure 117/64 05/22/25 11:35
Blood pressure extremity used: Left upper arm 05/22/25 11:35
Position: Lying 05/22/25 11:35
MAP (cuff-Linda Monitor) 80 05/21/25 13:00
SaO2 98 05/22/25 15:50
Nasal Cannula flow liters per minute 2 05/22/25 03:08
Oxygen Mode of Delivery Room air 05/22/25 15:50
Can the patient verbally communicate their pain? Yes 05/22/25 15:50
Actual Weight 84.085 kg 05/22/25 06:00
Body Mass Index (BMI) 28.2 05/22/25 06:00
Supine- Blood Pressure 117/64 05/22/25 11:35
Supine- Pulse 79 05/22/25 11:35
Sitting- Blood Pressure 122/61 05/22/25 11:35
Sitting- Pulse 76 05/22/25 11:35
Standing- Blood Pressure 134/67 05/22/25 11:35
Standing- Pulse 99 05/22/25 11:35
Blood pressure extremity used: Left upper arm 05/22/25 11:35
Mode BP taken: Automatic 05/22/25 08:45
Labs
05/22/25 01:21
Hemoglobin A1c 5.2 % (4.0-5.6) 05/21/25 16:10
Troponin I 5.420 ng/ml H* D 05/22/25 11:35
Lxb-F-Cqvpjmdubjw Pept 411 pg/ml 05/21/25 13:04
Exam
General: Well Developed and Well Nourished
HEENT: Normocephalic, PERRLA and EOMI
Respiratory: Clear
Cardiac: S1/S2, Regular Rhythm and Murmur
GI: Soft, Non Tender, Non Distended and Normal Bowel Sounds
Skin: Warm, Dry and Other (R wrist TR band s/p LHC)
Neuro: Awake, Alert, Oriented, AO x 3 and No Motor Deficits
Extremities: Pulses (+2 DP/Radial B/L)
Psych: Calm
Assessment / Plan
-
#NSTEMI #Multivessel CAD with Severe Aortic Stenosis
- Patient with known CAD and presented with progression of symptoms
- TTE showing severe (P/M 81/52) with GUADALUPE 0.8, normal EF, NRWMA
- LHC 05/22 showing multivessel CAD including LM disease
- Patient's case will be discussed with Attending Physician.
- Further details regarding surgical timing intervention will be determined after Attending Physician's full evaluation.
- Routine preoperative cardiothoracic surgery orders will be initiated including:
- Pre-operative Labwork including T & S
- Cerebrovascular Ultrasound
- SAVR CT of Chest only
- [place]
- STS risk stratification score will be calculated after preoperative testing is completed.
- Continue medical recommendations per Cardiology team.
- Etiology of anemia warranted in anticipation to CTS, continue recommendations per primary team. GI consulted.
Data Reviewed
-
EKG: Report Reviewed by me
Grain Elevator Agent: Report Reviewed by me and Discussed with Physician
Echo: Report Reviewed by me and Discussed with Physician
Labs: Labs Reviewed by me
--- NOTE | 2025-05-22 18:35 | PTCARENOTE ---
Shamika headleyer texted to clarify order for gavilax. The plan is for pt to have an EGD/colonoscopy first case in AM. ZACARIAS aware that pt is waiting in laborer petroleum refinery recovery for IVU bed. Prep won't be started until pt arrives to IVU.
[2025-05-22] MEDS: FERRLECIT 110 MG IV (18:43)
[2025-05-22 20:34] LABS: Hematocrit 26.5 % (39.0-52.0); Hemoglobin 8.9 g/dL (13.0-18.0); Mean Corp Hgb Conc. 33.6 g/dL (33.0-37.0); Mean Corpuscular Volume 84.9 fL (80.0-94.0); Platelet Count 185 10^3/uL (130-400); Red Cell Dist. Width 14.1 % (11.5-14.5)
[2025-05-22] MEDS: PRAVACHOL 40 MG PO (20:37)
[2025-05-22] MEDS: EFFEXOR XR 150 MG PO (20:37)
[2025-05-22] MEDS: HEPARIN 25000 UNITS/250 ML IV (20:38)
[2025-05-22 20:44] LABS: APTT 36.2 Sec (23.4-35.0)
[2025-05-22] MEDS: GAVILAX 238 GM PO (21:45)
[2025-05-23] VITALS (27 sets, daily range): BP systolic 91–151; BP diastolic 49–75; BMI 28.2
--- NOTE | 2025-05-23 01:28 | PTCARENOTE ---
Pt rec'd from ccl on stretcher with first unit of blood infusing. unit completed at 2114 with second unit completed by 11. Pt tolerated well without transfusion reaction. Gavilax started at 2144 with pt completing 75%. stool light green liquid
with no sediment noted. At 2235 after pt was up using commode pt c/o 7 out of 10 CP. ecg completed, O 2 placed at 2 lit n/c. pain relieved with only O2 once pt back to bed. CV MICHELLE Gudino made aware and ecg reviewed. Pt to remain on O2 at this time.
Pt is npo for EGD and colonoscopy in am. RW IV site tangled in telemetry wires. Site leaking and discontinued. Took approx 15 mins to get site to clot. Sinus on telemetry without ectopy. Right radial site with DDI, good pulse.
call chawla within reach. Pt aware of npo status.
[2025-05-23 03:12] LABS: Hematocrit 30.6 % (39.0-52.0); Hemoglobin 10.3 g/dL (13.0-18.0); Mean Corp Hgb Conc. 33.7 g/dL (33.0-37.0); Mean Corpuscular Volume 84.1 fL (80.0-94.0); Platelet Count 204 10^3/uL (130-400); Red Cell Dist. Width 13.6 % (11.5-14.5)
[2025-05-23 03:34] LABS: ALT (SGPT) 24 U/L (0-50); AST (SGOT) 69 U/L (17-59); Albumin 3.7 g/dl (3.5-5.0); Alkaline Phosphatase 59 U/L (38-126); Blood Urea Nitrogen 11 mg/dl (9-20); Calcium 8.8 mg/dl (8.4-10.2); Carbon Dioxide 25 mmol/L (22-30); Chloride 107 mmol/L (98-107); Estimated Creatinine Clearance 78 ml/min; Glucose 103 mg/dl (70-99); Potassium 3.9 mmol/L (3.5-5.1); Sodium 137 mmol/L (135-145); Total Protein 5.9 g/dl (6.3-8.2); eGFR > 60.00
[2025-05-23 03:36] LABS: INR 1.03; PT 14.0 Sec (11.4-14.6)
[2025-05-23 03:37] LABS: APTT 55.6 Sec (23.4-35.0)
--- NOTE | 2025-05-23 07:46 | PTCARENOTE ---
Assumed care. Patient finished oral prep for colonoscopy and EGD, NPO since midnight. Commode emptied for light yellow watery stool. CT chest ordered STAT, patient sent on a stretcher
--- NOTE | 2025-05-23 09:52 | W.PN.HOSP.TC ---
Today's Communication/Plan
-
Continue with IV heparin and follow H&H closely
Continue with medical treatment for CAD-aspirin, beta-fermin, statins
Diet per GI
CT surgery eval ongoing
Assessment / Plan
Assessment / Plan
# Acute recurrent chest pain secondary to non-ST elevation MN
S/p cardiac catheterization 05/22 which shows multivessel disease.
Echo on this admission shows EF of 65%. No clinical evidence of heart failure.
Continue with the medical treatment.
Ongoing cardiac thoracic surgery evaluation for CABG.
On IV heparin with close follow-up of H&H.
# History of CAD status post remote bare-metal stent to RCA-on aspirin and statins.
# Anemia-likely secondary to subacute GI blood loss
Possible upper GI bleed-elevated BUN noted
Heme positive stools
Status post units of PRBC transfusion 05/22 in view of anemia around 8 and ongoing acute coronary syndrome. Hemoglobin up today 10.3.
Iron studies suggest iron deficiency. Started IV iron.
Continue Protonix twice daily
Holding on endoscopy eval because of finding of CAD and severe
Patient states that he has a history of peptic ulcer disease in the past
Last colonoscopy was over 10 years ago
No weight loss
# Hyperlipidemia-continue statin
# Hypertension-continue valsartan
# Anxiety and mild depression-continue venlafaxine
# Remote smoking history-quit in
# DVT prophylaxis-SCDs
# Full code
Discussed with cardiology, GI, CT surgery
Concern for high risk for endoscopy eval at this point.
CT surgery planning on CABG and AVR.
Depending on the plans we will feed him today.
Total time spent on today's encounter was 52 minutes which included time spent in counseling the patient/family regarding diagnosis and treatment plan as listed above, goals of care, and symptom management. Case was discussed with nursing staff,
specialists, and care coordinators/case management. All labs and imaging personally reviewed by me. Remainder the time spent in detailed review of previous records, lab data, imaging, and other medical provider documentation.
Part of this note was created using voice recognition system. Occasional wrong word or��sound alike� substitutions may have inadvertently occurred due to the inherent limitations of voice recognition software. If noted kindly bring it to my
attention for correction.
Anticipated Discharge: > 48 hours
Subjective/Interval History
-
Date of Service: May 23, 2025
No further chest pain. Denies any shortness of breath. No palpitations.
Denies any lightheadedness or dizziness.
No nausea or vomiting. No abdominal pain.
Objective Data
-
Labs:
Laboratory Results
05/23/25 05/23/25 05/23/25
02:50 02:51 02:51
WBC 9.3
Hgb 10.3 L
Hct 30.6 L
Plt Count 204
PT 14.0
INR 1.03
APTT Cancelled 55.6 H
Sodium 137
Potassium 3.9
Chloride 107
Carbon Dioxide 25
BUN 11
Creatinine 0.8
Glucose 103 H
Calcium 8.8
Total Bilirubin 1.5 H D
AST 69 H
ALT 24
Alkaline Phosphatase 59
Vital Signs:
Vital Signs
Temp Pulse Resp BP Pulse Ox
97.6 F 75 18 136/65 97
05/23/25 03:48 05/23/25 09:45 05/23/25 03:48 05/23/25 08:43 05/23/25 03:48
I&O
05/22/25 05/23/25 05/24/25
06:59 06:59 06:59
Intake Total 480 / 480 2430 / 2430
Output Total 950 / 950 200 / 200
Balance -470 / -470 2230 / 2230
Physical Exam
-
General: Comfortable
Respiratory: Clear to Auscultation and Non Labored Respirations; Negative Accessory Resp Muscle Use
Cardiac: Regular Rhythm and S1/S2
GI: Soft, Nontender, Nondistended and Normal Bowel Sounds
Neuro: AO x 3
Data Reviewed
-
Labs: Labs Reviewed by me
--- NOTE | 2025-05-23 09:57 | CM ---
Chart reviewed. Patient is independent of ADLS, lives alone in a 2 STH, 2 LUTHER, 0 DME. 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 Reviewed preoperative and postoperative instructions and restrictions, along with showering guidelines. Patient is
agreeable to a home visit by CT Transitional Care RN. Gave patient a Cardiac Surgery Book. Patient's ex will stay with the patient and after surgery and assist him with his needs. Plan is for the patient to return home with CT Transitional
RN. CM to follow
--- NOTE | 2025-05-23 10:49 | W.CVOR.SURPR ---
CVOR Surgeon Immed Pre Op
-
I have examined this patient prior to performance of the scheduled procedure.
The patient's condition is unchanged from the time of the dictated/written History and
Physical and the patient is able to undergo the scheduled procedure.
I had a long discussion with Mr. Frazier. Given his severe and severe CAD, his pre-syncopal episodes and chest pain last evening, I would recommend proceeding with surgery. He does not have delfino blood from his GI tract, and responded
appropriately with transfusions. There is a likelihood this could related to his severe . I would place him pre-emptively on IV PPI and plan for AVR CABG LAAE, will coordinate with GI for scope Monday.
[2025-05-23] MEDS: PROTONIX 40 MG PO (11:00)
[2025-05-23] MEDS: LOPRESSOR 25 MG PO (11:00)
[2025-05-23] MEDS: BACTROBAN 2% OINTMENT 1 APPLIC NASAL ×2 (11:00→22:05)
[2025-05-23] MEDS: MAGNESIUM OXIDE 500 MG PO (11:03)
[2025-05-23] MEDS: NSS (PRESERVATIVE FREE) IV (11:03)
[2025-05-23] MEDS: PROTONIX IV IV (11:03)
--- NOTE | 2025-05-23 11:08 | PTCARENOTE ---
Prep completed, meds given pre-op with a sip of water. Voided pre-procedure
--- NOTE | 2025-05-23 11:20 | PTCARENOTE ---
Patient taken to the OR in bed
--- NOTE | 2025-05-23 12:24 | W.PN.UPDATE ---
Update Note
Progress Note Update
STS RISK SCORE
Procedure Type:�CABG + AVR
Perioperative Outcome Estimate %
Operative Mortality 2.65%
Morbidity & Mortality 13.1%
Stroke 2.5%
Renal Failure 3.05%
Reoperation 5.28%
Prolonged Ventilation 7.32%
Deep Sternal Wound Infection 0.127%
Long Hospital Stay (>14 days) 7.78%
Short Hospital Stay (<6 days)* 27.2%
Clinical Summary
Planned Surgery: CABG + AVR, Urgent, First cardiovascular surgery
Demographics: 74 year old, male, 84.08kg, 173cm, BMI: 28.1 kg/m�
Lab Values: Creatinine: 0.8 mg/dL, Hematocrit: 30.6%, WBC Count: 9.3 10�/�L, Platelet Count: 165067 cells/�L
Substance Abuse: Former smoker
Risk Factors / Comorbidities: Hypertension
Cardiac Status: NYHA Class II, Ejection Fraction = 65%
Coronary Artery Disease: 3 vessels diseased, Proximal LAD Stenosis >=70%, Non-ST Elevation LA, LA: 1 to 7 Days
Valve Disease: Aortic Stenosis, Mild MR, Trivial/Trace TR
Prev. Cardiac Interv: Previous PCI: Not during this episode of care
[2025-05-23 12:44] LABS: ACT+ - POC 109 Seconds (82-134)
--- NOTE | 2025-05-23 12:48 | W.PN.CARDCBS ---
Today's Communication / Plan
-
For CABG/AVR later today with recurrent chest pain
GI workup after CABG/AVR has been done
Impression / Plan
-
Primary Document Management Technician: Dr. Edwards of [facility] in [place], [place],
Assessment:
Presentation with CP
troponin uptrending
abnl EKG
Acute anemia, hgb 7.9
CAD s/p RCA PCI with bare-metal stents x2 1996
Inferior VA 1996
History of gastric ulcer ~15 years ago
Severe
HTN
HLD
ECHO 05/21/25: Severe peak/mean 81/52 mmHg, GUADALUPE 0.8 cm�, LVEF 65%, normal RV size and function, no AI, mild MR
Catheterization 05/22/2025:
CONCLUSIONS
1. Significant multivessel coronary artery disease.
2. Known severe aortic stenosis by most recent echocardiogram this admission.
Plan:
He had recurrent chest pain last night which has resolved
CT surgery has evaluated patient and is going to take for coronary bypass surgery/ AVR today
Hemoglobin has improved to 10.3
Plan is for GI workup with endoscopy and colonoscopy after bypass surgery has been done
Discussed in detail with primary service, GI, CT surgery. Total visit time 55 minutes including more than half of time spent explaining diagnosis, prognosis, and treatment options with specialists and patient in detail
Progress Note - Document Management Technician
Subjective
Date of Service: May 23, 2025
No chest pain or shortness of breath since last night.
Objective
Labs:
05/23/25 02:50
05/23/25 02:51
Labs
Hgb 10.3 g/dL (13.0-18.0) L 05/23/25 02:50
Hct 30.6 % (39.0-52.0) L 05/23/25 02:50
Plt Count 204 10^3/uL (130-400) 05/23/25 02:50
PT 14.0 Sec (11.4-14.6) 05/23/25 02:51
INR 1.03 05/23/25 02:51
APTT 55.6 Sec (23.4-35.0) H 05/23/25 02:51
APTT Cancelled 05/23/25 02:51
Sodium 137 mmol/L (135-145) 05/23/25 02:51
Potassium 3.9 mmol/L (3.5-5.1) 05/23/25 02:51
BUN 11 mg/dl (9-20) 05/23/25 02:51
Creatinine 0.8 mg/dL (0.7-1.3) 05/23/25 02:51
Glucose 103 mg/dl (70-99) H 05/23/25 02:51
Troponins
05/20/25 05/21/25 05/21/25
22:54 01:08 10:02
Troponin I 0.013 0.020 D 0.065 H*
05/21/25 05/21/25 05/21/25
13:04 17:54 19:15
Troponin I 0.091 H* D 0.134 H* D Cancelled
05/21/25 05/22/25 05/22/25
21:00 01:21 03:00
Troponin I 0.134 H* 0.106 H* Cancelled
05/22/25 05/22/25 05/22/25
07:03 09:00 11:35
Troponin I 2.090 H* D Cancelled 5.420 H* D
Vital Signs and I&O:
Vital Signs
Temp Pulse Resp BP Pulse Ox
97.6 F 56 18 151/68 97
05/23/25 03:48 05/23/25 11:00 05/23/25 03:48 05/23/25 10:57 05/23/25 03:48
Vital Signs
Temp Pulse Resp BP Pulse Ox
97.6 F 56 18 151/68 97
05/23/25 03:48 05/23/25 11:00 05/23/25 03:48 05/23/25 10:57 05/23/25 03:48
Intake & Output
05/21/25 05/22/25 05/23/25 05/24/25
06:59 06:59 06:59 06:59
Intake Total 480 / 480 2430 / 2430
Output Total 950 / 950 200 / 200
Balance -470 / -470 2230 / 2230
Physical Exam
Physical Exam
General: Well developed, well nourished in NAD.
Neck: Supple, no JVD, HJR, carotids +2 B/L, no bruits bilaterally.
Heart: Non displaced PMI, RRR, 2/6 basal systolic murmur, No S3, S4, no rubs.
Lungs: Clear to auscultation bilaterally, no wheeze, rhonchi, rubs bilaterally,
normal expiratory phase.
Extremities: No clubbing, cyanosis or edema bilaterally.
Neuro: Grossly nonfocal, awake, alert and oriented x3.
[2025-05-23 12:49] LABS: Urine Character Clear (Clear)
[2025-05-23 13:07] LABS: Urine Urothelial Cell 0-2 /LPF (FEW)
[2025-05-23 13:09] LABS: Urine White Cell 0-2 /HPF (0-5)
[2025-05-23 13:47] LABS: ACT+ - POC 631 Seconds (82-134)
[2025-05-23 14:18] LABS: ACT+ - POC 676 Seconds (82-134)
[2025-05-23 14:55] LABS: ACT+ - POC 533 Seconds (82-134)
[2025-05-23 15:25] LABS: B.E. - POC 3.7 mmol/L; Glucose - POC 147 mg/dl (70-99); HCO3 - POC 28 mmol/L (21-28); Hematocrit - POC 24 % PCV (42-52); Hemodilution- POC Yes; Hemoglobin Calculated - POC 8.1; Ionized Calcium - POC 1.10 mmol/L (1.15-1.33); Lactate - POC 0.63 mmol/L (0.36-0.75); O2 Saturation %Calculated-POC 100.0 % (94-98); PCO2 - POC 42 mmHg (35-48); PO2 - POC 404 mmHg (83-108); POC Comment CPB; Potassium - POC 4.5 mmol/L (3.5-5.1); Sodium - POC 140 mmol/L (136-145); Specimen Type - POC Arterial; pH - POC 7.44 (7.35-7.45)
[2025-05-23 15:34] LABS: ACT+ - POC 516 Seconds (82-134)
[2025-05-23 15:55] LABS: B.E. - POC 2.0 mmol/L; Glucose - POC 163 mg/dl (70-99); HCO3 - POC 26 mmol/L (21-28); Hematocrit - POC 25 % PCV (42-52); Hemodilution- POC Yes; Hemoglobin Calculated - POC 8.6; Ionized Calcium - POC 1.06 mmol/L (1.15-1.33); Lactate - POC 1.33 mmol/L (0.36-0.75); O2 Saturation %Calculated-POC 99.8 % (94-98); PCO2 - POC 36 mmHg (35-48); PO2 - POC 217 mmHg (83-108); POC Comment WARM; Potassium - POC 4.8 mmol/L (3.5-5.1); Sodium - POC 140 mmol/L (136-145); Specimen Type - POC Arterial; pH - POC 7.46 (7.35-7.45)
[2025-05-23 16:04] LABS: ACT+ - POC 118 Seconds (82-134)
[2025-05-23 16:34] LABS: B.E. - POC -0.0 mmol/L; Glucose - POC 117 mg/dl (70-99); HCO3 - POC 25 mmol/L (21-28); Hematocrit - POC 22 % PCV (42-52); Hemodilution- POC Yes; Hemoglobin Calculated - POC 7.4; Ionized Calcium - POC 1.31 mmol/L (1.15-1.33); Lactate - POC 1.56 mmol/L (0.36-0.75); O2 Saturation %Calculated-POC 97.0 % (94-98); PCO2 - POC 40 mmHg (35-48); PO2 - POC 91 mmHg (83-108); POC Comment POST; Potassium - POC 3.9 mmol/L (3.5-5.1); Sodium - POC 140 mmol/L (136-145); Specimen Type - POC Arterial; pH - POC 7.40 (7.35-7.45)
[2025-05-23 16:42] LABS: ACT+ - POC 134 Seconds (82-134)
[2025-05-23 16:52] LABS: B.E. - POC -4.3 mmol/L; Glucose - POC 176 mg/dl (70-99); HCO3 - POC 29 mmol/L (21-28); Hematocrit - POC 27 % PCV (42-52); Hemodilution- POC Yes; Hemoglobin Calculated - POC 9.3; Ionized Calcium - POC 1.26 mmol/L (1.15-1.33); Lactate - POC 2.79 mmol/L (0.36-0.75); O2 Saturation %Calculated-POC 98.0 % (94-98); PCO2 - POC 137 mmHg (35-48); PO2 - POC 177 mmHg (83-108); POC Comment POST; Potassium - POC 4.9 mmol/L (3.5-5.1); Sodium - POC 141 mmol/L (136-145); Specimen Type - POC Arterial; pH - POC 6.94 (7.35-7.45)
[2025-05-23 16:58] LABS: B.E. - POC -5.8 mmol/L; Glucose - POC 166 mg/dl (70-99); HCO3 - POC 25 mmol/L (21-28); Hematocrit - POC 30 % PCV (42-52); Hemodilution- POC Yes; Hemoglobin Calculated - POC 10.3; Ionized Calcium - POC 1.25 mmol/L (1.15-1.33); Lactate - POC 2.92 mmol/L (0.36-0.75); O2 Saturation %Calculated-POC 99.6 % (94-98); PCO2 - POC 79 mmHg (35-48); PO2 - POC 244 mmHg (83-108); POC Comment POST; Potassium - POC 4.6 mmol/L (3.5-5.1); Sodium - POC 142 mmol/L (136-145); Specimen Type - POC Arterial; pH - POC 7.10 (7.35-7.45)
--- NOTE | 2025-05-23 17:07 | CON.INTV ---
Consultation
Consultation Request
Date/Time Consultation Requested: 05/23/25
Date/Time Consultation Performed: 05/23/25
Performing Provider: Yesy
Reason for Consultation: ICU, Endobronchial bleeding
Medical History
-
History of Present Illness:
Patient is a 74-year-old pleasant male w/ h/o HTN presented to ER with chest pain, lightheadedness, left arm numbness, SOB. Admitted on 05/21/25 with rule in for NSTEMI, on w/u also has severe . Underwent LHC on 05/22/25 with significant
multivessel coronary artery disease, confirmed severe . CTS planning for CAB and AVR on 05/23/25. Intraoperatively, noted to have endobronchial bleeding suspicious for possible PA rupture vs endobronchial tears. He is in OR, intubated with double
lumen ETT. Bronchoscopy performed emergently in OR but cannot locate specific site of bleeding. Clots are noted throughout omar and bilateral main stems for poor visualization. Epi delivered into lungs x 3. Saturations notable are 100% on vent,
ABG with pH 6.9, PCO2 >100. He is closed and will be heading to laboratory tech. We are consulted for evaluation.
Past Medical History
Past Medical History: Other (see list below)
Social History
Tobacco: Non-smoker
Alcohol: None
Drug: None
Family History
Family History: Reviewed & Not Pertinent
Allergies / Home Medications
Allergies
Allergy/AdvReac Type Severity Reaction Status Date / Time
No Known Allergies Allergy Unverified 10/09/20 14:13
Home Medications
�Medication �Instructions �Recorded �Confirmed �Last Taken �Type
aspirin 81 mg tablet 81 mg PO DAILY 05/21/25 05/21/25 Unknown History
pravastatin 40 mg tablet 40 mg PO HS 05/21/25 05/21/25 Unknown History
valsartan 80 mg tablet 80 mg PO DAILY 05/21/25 05/21/25 Unknown History
venlafaxine 150 mg 150 mg PO HS 05/21/25 05/21/25 Unknown History
capsule,extended release 24 hr
Review of Systems
-
Unable to Obtain full review of systems at this time due to: Patient Intubation
Vitals / Labs / Diagnostic Testing
Vital Signs
Temp Pulse Resp BP Pulse Ox
97.6 F 56 18 151/68 97
05/23/25 03:48 05/23/25 11:00 05/23/25 03:48 05/23/25 10:57 05/23/25 03:48
Laboratory Results
05/22/25 05/23/25 05/23/25
20:27 02:51 02:51
PT 14.0
INR 1.03
APTT 36.2 H Cancelled 55.6 H
Diagnostic Testing:
Physical Exam
-
HEENT: Normocephalic, Anicteric, Moist Mucous Membranes and Other (intubated)
Cardiovascular: S1/S2 and Regular Rhythm
Respiratory: Non-Labored Respirations, Other (decreased BS BL, R>L) and Other (Blood is noted throughout oropharynx/ETT)
GI: Soft, Non Distended and Non Tender
Neurology: Other (sedated/intubated)
Skin: Warm, Dry and Good Color
General: Comfortable and Other (NAD)
Assessment
-
Patient is a 74-year-old pleasant male w/ h/o HTN presented to ER with chest pain, lightheadedness, left arm numbness, SOB. Admitted on 05/21/25 with rule in for NSTEMI, on w/u also has severe . Underwent LHC on 05/22/25 with significant
multivessel coronary artery disease, confirmed severe . CTS planning for CAB and AVR on 05/23/25. Intraoperatively, noted to have endobronchial bleeding suspicious for possible PA rupture vs endobronchial tears. He is in OR, intubated with double
lumen ETT. Bronchoscopy performed emergently in OR but cannot locate specific site of bleeding. Clots are noted throughout omar and bilateral main stems for poor visualization. Epi delivered into lungs x 3. Saturations notable are 100% on vent,
ABG with pH 6.9, PCO2 >100. He is closed and will be heading to laboratory tech. We are consulted for evaluation.
Severe s/p AVR 05/23/25
MV CAD s/p CAB 05/23/25
Endobronchial bleeding, possible PA Rupture (less likely) vs endobronchial tearing
Intubated on MV with double lumen tube
NSTEMI rule/in
Acute hypoxic and hypercarbic respiratory failure
Severe respiratory acidosis
GIB
ABLA
Conditions present [employer]
RCA PCI in 1996
Known aortic stenosis with last echo in 2021
Gastric ulcer 15 years ago
Hypertension
Hyperlipidemia
Plan
Minimize sedation/paralytics, per anesthesia
RASS Goal: 0
Early mobilization to prevent polyneuropathy/deconditioning
s/p CAB/AVR POD #0
Titrate off pressors per protocol
ECHO reviewed with normal function
PA catheter readings reviewed
Management of chest tubes per primary service
Intubated/sedated, initiate SAT when able
Pain control
RASS goal of 0 to -1
Intubated for procedure, settings reviewed
ABG(s) reviewed--repeat
CXR with no obvious opacities/infiltrates on prior, repeat pending
s/p bronch 05/23--poor visualization, bleeding less likely from PA rupture, likely endobronchial tear
Maintain supplement oxygen as needed
Can reassess need for bronchoscopy again upon exit from OR
No prior history of pulmonary disease
No prior PFTs for review
Can add nebulizers if needed
Aspiration precautions
Encouraged incentive spirometry, OOB/ambulation/early mobility
Advance diet as tolerated following extubation
GI prophylaxis if indicated for mechanical ventilation >48 hours
Monitor critical I/O's
Galeas/chest tube output
Hb/platelets postoperatively to be completed, transfusion if needed
Trend CBC for now
Can transfuse if indicated for Hb <7, plt <50 in surgical patients
DVT prophylaxis including SCDs
Insulin protocol initiated and ongoing
Transition to SQ/off as indicated per team
We will follow
Diagnostic Data
CXR 05/23/25- No acute radiographic abnormality in the chest
CTA 05/23/25- 1. No thoracic aortic aneurysm or dissection. No pulmonary embolism.
2. No significant acute abnormality identified in the chest, as described above.
3. Moderate coronary artery calcifications.
4. Tiny 4 mm left lower lobe pulmonary nodule, likely benign. If the patient is considered high risk, an optional follow-up noncontrast CT chest can be obtained in 12 months.
ECHO 05/21/25: Severe peak/mean 81/52 mmHg, GUADALUPE 0.8 cm�, LVEF 65%, normal RV size and function, no AI, mild MR
ECG: Sinus rhythm, inferolateral ST segment depression consistent with injury, increased over May 21
Hemoglobin 8.3 BUN and creatinine 19 and 0.8 troponin 2.09, had been 0.1, proBNP is 41
Critical Care time 80 mins -- The patient is admitted for acute critical illness for the treatment of vital organ failure and/or prevention of further life-threatening conditions. Total care includes time spent in review of history, physical exam,
medications, hemodynamic/ventilator parameters, laboratory data, imaging and discussion with house staff, pharmacy, respiratory therapy, material disposition inspector, and nursing.
--- NOTE | 2025-05-23 17:34 | W.PN.UPDATE ---
Update Note
Progress Note Update
Procedure Note
Procedure: Diagnostic Bronchoscopy
Indication (s): Bronchial bleeding
Postoperative Diagnosis: Endobronchial bleeding, clots
Time In: 1600
Time Out: 1650
Anesthesia: see sheet
Performed emergently in OR
Findings, Complications, and Other Information: Poor visualization through double lumen tube, exchanged for ETT. Blood clots are noted at omar and at the main stems, some clot removed but difficulty with small scope.
Small oozing noted, but not high volume bleeding noted as would be noted with PA rupture. Scope tried through cords along side ETT, but could not advance, diluted epi injected at R main and omar x 3. Patient ventilating well.
Samples taken: none
Estimated Blood Loss: moderate, see OR sheet for totals
Patient disposition: to CVICU
Repeat CXR when able, continue oxygenation and ventilation. Repeat ABG
Signed out to indoor plant technician applications support specialist
D/w care team
[2025-05-23 18:00] LABS: B.E. - POC -5.5 mmol/L; Blood Urea Nitrogen - POC 11 mg/dl (3-120); Chloride - POC 106 mmol/L (96-111); Creatinine - POC 0.97 mg/dl (0.3-1.0); Glucose - POC 156 mg/dl (70-99); HCO3 - POC 27 mmol/L (21-28); Hematocrit - POC 27 % PCV (42-52); Hemodilution- POC No; Hemoglobin Calculated - POC 9.3; Ionized Calcium - POC 1.31 mmol/L (1.15-1.33); Lactate - POC 1.31 mmol/L (0.36-0.75); O2 Saturation %Calculated-POC 88.6 % (94-98); PCO2 - POC 103 mmHg (35-48); PO2 - POC 85 mmHg (83-108); Potassium - POC 4.1 mmol/L (3.5-5.1); Sodium - POC 140 mmol/L (136-145); Specimen Type - POC Arterial; pH - POC 7.02 (7.35-7.45)
--- NOTE | 2025-05-23 18:36 | ITS.CL.PN ---
[facility] - Procedure Note
Procedure
Procedure Note:
PULMONARY ANGIOGRAPHY/COILING OF PULMONARY ARTERY RUPTURE
Date of procedure: 05/23/2025
Referring provider: Rodolfo Lubin M.D.
INDICATION: Pulmonary artery rupture after [place] catheter placement during coronary artery bypass grafting surgery with acute hemoptysis and instability.
PROCEDURE:
1. Selective pulmonary angiography.
2. Successful coiling of the ruptured right middle lobe third order pulmonary artery.
3. Bedside bronchoscopy by CT surgery/CT anesthesia.
4. Repositioning of the ET tube under fluoroscopy guidance.
ACCESS:
1. 7 Nigerien right common femoral vein using a modified Seldinger technique with a micropuncture kit under ultrasound guidance.
2. 10 Nigerien left common femoral vein using modified Seldinger technique with a micropuncture kit under ultrasound guidance.
CATHETERS:
1. 7 [place]ien [place] catheter.
2. 6 Nigerien angled pigtail.
3. 6 Nigerien JR4 guiding catheter.
HEMODYNAMIC DATA
Weight (kg): 83.9
AO (s/d/x, mmHg): 100/50/70 (taken from anesthesia A-line)
LV (s/x mmHg): Not obtained.
PULMONARY ANGIOGRAPHY: Normal size pulmonary artery. Selective angiography was performed of the right middle lobe arteries. This demonstrated a blush in the third order right middle lobe pulmonary artery.
INTERVENTION(S)
1. Successful coiling of the ruptured third order right middle lobe pulmonary artery (Two Cook 10 x 14 Devendra embolization coils) with successful hemostasis.
2. Successful repositioning of the ET tube under fluoroscopic guidance by CT anesthesia.
3. Successful bedside bronchoscopy by CT surgery.
Narrative:
The patient was brought to the hybrid operating room directly from the [facility] OR. 7 Nigerien right common femoral venous access and 10 Nigerien left common femoral venous access were previously obtained in the [facility] OR under ultrasound guidance. After
reprepping and draping the patient, a 7 [place]ien [place] catheter was advanced into the right pulmonary artery over a power turn flex wire. With the [place] catheter in place, a 0.025 J-wire was advanced into the right pulmonary artery and the
[place] catheter was withdrawn. A 6 Nigerien angled pigtail catheter was advanced over the J-wire and into the main pulmonary artery. Pulmonary angiography was performed, focusing on the right middle lobe. A faint blush was observed on
angiography, and the decision was made to perform more selective angiography. A 0.035 J-wire was advanced through the pigtail catheter, though ultimately position was lost. The [place] catheter was readvanced over the power turn flex wire and
the 0.025 wire was placed in the distal right pulmonary artery. A 6 Nigerien JR4 guiding catheter was advanced over the 0.025 J-wire and into the right main pulmonary artery. The 0.025 wire was withdrawn. DSA cineangiography was performed with
ventilation hold, clearly demonstrating a perforation of the third order right middle lobe pulmonary artery. The power turn flex wire was advanced through the JR4 guiding catheter with a quick cross microcatheter and support. With some struggle,
the coronary wire was able to navigate the pulmonary circulation and progressed to the right middle lobe pulmonary artery. The quick cross catheter was advanced over the coronary wire which was subsequently removed. Selective angiography through
the microcatheter confirmed position in the ruptured pulmonary artery.
The decision was made to proceed with coil embolization and hemostasis. A 300 cm BMW wire was advanced through the 0.014 quick cross microcatheter and the microcatheter was withdrawn. A 0.035 quick cross was then advanced over the BMW wire and
into the ruptured pulmonary artery. After confirming position, the BMW wire was removed. A Cook 10 x 14 Devendra embolization coil was prepped on the back table and advanced into the quick cross microcatheter. The coil was subsequently advanced
using a Bentson wire. The coil was successfully deployed in the ruptured pulmonary artery. Follow-up angiography confirmed good placement of the coil, though there was concern for residual supply of the rupture. The decision was made to proceed
with a second coil. A second Cook 10 x 14 Devendra embolization coil was prepped and advanced through the quick cross microcatheter. The coil was deployed, creating a column of hemostasis up the arterial branch. Following the deployment of the
second coil, repeat angiography showed good hemostasis with local pulmonary perfusion but no evidence of extravasation.
The quick cross microcatheter was withdrawn. The 6 Nigerien JR4 guiding catheter was removed over a J-wire.
Over the course of the procedure, anesthesia took several opportunities to use fluoroscopy for repositioning of the ET tube for better isolation of the left lung. Bronchoscopy was used to guide the ET tube into the left mainstem bronchus.
After completing the coiling procedure, CT surgery performed bedside bronchoscopy with notable improvement in the patency of the right mainstem bronchus without continuous bleeding. Several clots were aspirated during this bronchoscopy. Please see
CT surgery notes for further details.
Closure Device: The right common femoral arterial line and bilateral venous access points were sutured in place.
Radiation (mGy): 880
DAP (cm2.Gy): 125
Fluoroscopy time (minutes): 21.5
CONCLUSIONS
1. Rupture of the third order right middle lobe pulmonary artery status post successful coiling (Two Cook 10 x 14 Devendra embolization coils) with successful hemostasis.
2. Successful isolation of the left mainstem bronchus with fluoroscopic guided ET tube positioning by CTA anesthesia.
3. Successful bedside bronchoscopy by CT surgery.
RECOMMENDATIONS:
1. Expectant management after CABG.
2. Careful monitoring of hemodynamics as well as hemoglobin levels.
3. Daily chest x-ray.
Copy to: Rodolfo Lubin M.D., Adis Perkins PA-C
Bradford Black DO, FACC, FACP
--- NOTE | 2025-05-23 19:01 | W.PN.CT.SURG ---
CT Surgery Operative Note
-
CARDIAC SURGERY OPERATIVE REPORT
Preoperative Diagnosis: Aortic valve stenosis with multivessel coronary artery disease and NSTEMI
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
Procedure(s) Performed:
1. Status did not with aortic and right atrial cannulation
2. Internal artery and mammary harvesting of the left
3. Endoscopic vein harvesting of the right lower extremity
4. Coronary artery bypass grafting x 4 (In situ BALLARD to LAD, Ao to RSVG to ramus sequential to OM, Ao to RSVG to RPDA)
5. Surgical aortic valve replacement (27 mm bioprosthetic)
6. Placement temporary ventricular and atrial pacing wires
7. Trans-esophageal echocardiography
8. Left atrial appendage exclusion [35 mm device]
9. Bronchoscopy with clearing of airway
Date of Surgery: 05/23/2025
Comorbidities:
1. Severe aortic valve stenosis, symptomatic
2. Multivessel coronary artery disease, NSTEMI
3. History of previous PCI for MIs
4. History of GI bleeding
5. Hyperlipidemia
6. Hypertension
7. Massive hemoptysis/airway hemorrhage from PA swallowing perforation
Attending Surgeon: Rodolfo Lubin MD, MS
Assistants: Daily Hanson PA-C (present and necessary to university administrative assistant, retraction, suction, exposure, suture management, and wound closure under my direction) and DEION Parish (endo vein harvest)
Anesthesiology: Neil Allen MD and Robyn Vila CRNA
Scrub and Circulating RNs: Denise Valladares, RN, Brenda Bermudez, GARALND
City Engineer: Celestino Zelaya CCP
Anesthesia: GETA
EBL: per perfusion records
Products: 2 prbcs 2 plts
CPB Time: 112 minutes
Aortic Cross Clamp Time: 99 minutes
Indication(s) for Procedures: This is a 74-year-old male with a history of previous PCI and known CAD. He also had severe aortic valve stenosis and had 2 presyncopal events prior to admission to the hospital. He came with a GI bleed and is found
to have significant multivessel coronary disease and also an elevated troponin at the criteria for an NSTEMI. He is anemic preoperatively and was planned for GI intervention however given his chest pain overnight and combination of severe and
multivessel coronary disease involving the proximal LAD, multidiscipline team discussion was to move forward with cardiac surgery prior to GI investigation as he had no delfino blood from his GI tract.
Aortic Valve Description: Heavily calcified trileaflet aortic valve, left and right coronary ostia normal anatomic positions there was bulky calcification around the ostia of each coronary vessel.
Conduit(s) Quality:
BALLARD -excellent/large sized artery, taken as a pedicle
RSVG -excellent/uniform with minor varicosities
Target(s) Quality:
RCA/PDA -excellent/easily accommodated a 2.0 mm probe, test dosing antegrade revealed flow of 60 cc a minute at a pressure 80 mmHg
OM -excellent/good sized target, mean flow on test dosing antegrade was 40 cc a minute at a pressure 80 mmHg
Ramus -excellent, mean flow here as a sequential graft at the distal end occluded was 50 cc a minute at a pressure 80 mmHg
LAD -excellent/large sized target with good visual flow in the LAD territory at removal with a bulldog clamp
Findings: LVEF on intraoperative ELMIRA was 60% and 60% post procedure with no new regional wall motion abnormality. His aortic valve was trileaflet and heavily calcified. This was resected and a total of 14 nonpledgeted 2 Ethibond sutures were
placed from LVOT through annulus through sewing cuff of the valve. This secured a 27 mm bioprosthetic valve into place using core knots. There was no prosthetic PVL or AI. Mean gradient across the prosthesis was 3 mmHg. The BALLARD was harvested in a
cardiac fashion. Following bypass grafting, test dose cardioplegia was given down each distal and confirmed patency and hemostasis. Each distal was probed both proximally and distally to confirm disease and patency, respectively. His left atrial
appendage also verified to be free of any thrombus or debris preoperatively and found to be totally occlusive postoperatively. After including the case, his cardiac function was good without inotropic support. He regained his sinus rhythm after
short period of AV pacing. He unfortunately there was a significant amount of bleeding from his endotracheal tube. This was likely a PA Downey perforation as it was manipulated and found to be quite deep. I quickly closed the chest and went to
assist anesthesia. Using a bronchoscope unable to obtain left mainstem intubation in order to protect airway. We had good recovery of respiratory saturations. At this point interventional cardiology was consulted intraoperatively as well as
pulmonary. Please see their dictation for their portion of the procedure. We ultimately moved into the Hoop Maker where coils were used to control the bleeding.
Specimen(s): Aortic valve leaflets.
Prosthesis:
1. 27 mm [employer] Resilia aortic valve bioprosthesis, serial number: [id number]
2. 35mm left atrial appendage clip, serial #[id number]
Description of Procedure: The patient was taken to the operating room. Their identity and procedure to be performed were verified and they were positioned supine on the operating table. Induction via general anesthesia with endotracheal intubation
was performed and central venous access and arterial monitoring were inserted. A preoperative transesophageal echocardiogram was performed. The patient was then prepped and draped from chin to feet in a sterile fashion. A preoperative time-out was
performed with all members of the team present. A midline chest incision was performed along with median sternotomy. Simultaneous endoscopic access of the right lower extremity for saphenous vein harvest was obtained along with administration of an
initial 5,000 units of IV heparin. A RulTract sternal retractor was positioned to exposure the left internal mammary bed. The mammary was harvested in a pedicle fashion and found to have good flow. A bulldog clamp was applied to the distal end of
the mammary after dividing it. It was wrapped in a papaverine soaked RayTec and replaced back into the left hemithorax. The RulTract was exchanged for a median sternal retractor. The innominate vein was isolated. Full heparinization was given (a
total of 55,000 units). I created a pericardial well. The aortic cannulation site was chosen where it was soft, pliable, and free of calcium. Cannulation was performed with an arterial cannula in the ascending aorta and a triple-stage venous cannula
through the right atrial appendage. The arterial cannula line had an appropriate bounce and correlating pressures with test dosing. Next, a root vent/antegrade cannula was inserted into the ascending aorta. The ACT was confirmed to be over 400 and
retrograde autologous priming was performed before commencing cardiopulmonary bypass. The pulmonary artery was away from the aorta to facilitate a clamp site. The aortic cross-clamp was placed after decreasing the flow on the bypass and
mean arterial pressure. A total of 1.2L initial dose of antegrade Del-Nido cardioplegia solution was given and planned for re-dosing every 75 minutes as necessary. There was rapid electro-mechanical arrest of the heart at 250 cc of cardioplegia. The
left ventricle was observed for distention on echocardiogram and manual palpation. Cold slush was placed into a sponge and topically on the RV while we systemically cooled to 34 degrees centigrade. Once the heart was fully arrested was rotated
medially and the left atrial appendage was clipped flush to the base.
Since that the heart rate exposed in order to obtain access to the OM and ramus branches these were dissected first. A small coronary arteriotomy was then created on the OM branch and a large with Wang scissors. The distal end of the saphenous
vein graft was beveled accordingly and end-to-side anastomosis was created with 7-0 Prolene in a running fashion. Test dosing antegrade was performed here and demonstrated excellent hemostasis and flow. I then positioned the vein graft in order to
perform a sequential graft of the ramus vessel. The ramus was also prepared in a similar fashion. The underbelly of the vein graft was incised and a [id number] anastomosis was created with 7-0 Prolene. The distal end of the vein graft was then
clamped with a bulldog and test dose of antegrade cardioplegia was given down the graft which demonstrated good hemostasis and flow. The graft was measured for length to the aorta and cut.
Next, I positioned the heart to expose the distal right coronary at the posterior descending artery. A naknek blade was used to expose the coronary and perform the arteriotomy. Coronary Wang scissors were used to enlarge the incision. The saphenous
vein was trimmed and beveled to an appropriate size. The distal anastomosis was performed using 7-0 prolene in an end-to-side fashion. Antegrade cardioplegia was administered into the graft. Appropriate hemostasis and flow were confirmed. The graft
was measured for length to the aorta and cut. A suitable target on the mid/distal left anterior descending was identified. We dissected and prepared the distal target in a similar fashion. We retrieved the BALLARD from the chest and created a
pericardial opening while being cognizant of the phrenic nerve to facilitate the course of the mammary. The distal end of the mammary was prepped and beveled to size. We verified orientation and length of the BEE and found brisk flow. An end-to-side
anastomosis was created with a 7-0 prolene. We temporarily released the bulldog clamp on the mammary to inspect flow. Perfusion to the LAD territory was visualized and hemostasis was confirmed. The bull clamp was replaced on the mammary.
Carbon dioxide was used to flood the field. I turned my attention to the aortic valve and manually identified the location of the right coronary take off. An aortotomy was made approximately 1.5cm above the sinotubular junction. The location of both
left and right coronary vessels were visualized in the root. The aortic valve was inspected and found to be heavily calcified. The leaflets were excised and sent for pathological assessment. The annulus was debrided of any calcium. The root and left
ventricular outflow tract were thoroughly irrigated to remove any debris. A total of 14, non pledgeted 2-0 ethibond annular sutures were placed [id number] circumferentially. These were brought through the sewing cuff of the prosthetic valve which
as then parachuted into place. The left and right coronary ostia were visualized and were unobstructed by the valve. A Cor-Knot device was used to secure the annular sutures. The valve was inspected and was well seated. The aortotomy was
approximated with 4-0 prolene in two layers. The heart was filled and the root was distended with antegrade cardioplegia to make final assessment of graft length and orientation. I created 2 aortotomies using a #11 blade then a 4.0mm aortic punch
above the aortic suture line. The proximal anastomoses were created in an end-to-side fashion using 6-0 prolene. At the same time, we started to re-warm to 36.5 degrees centigrade. The bulldog clamp was removed from the mammary and temporary bipolar
ventricular pacing wires were placed on the base of the right ventricle with additional right atrial pacing wires at the SVC right atrial junction. The patient was placed in a Trendelenburg position and flows on bypass were lowered. The aortic cross
clamp was removed and flows were slowly brought back up. The aortotomy appeared hemostatic. All bypass grafts were inspected and were free from kinking or twisting. The distal and proximal anastomoses appeared hemostatic. De-airing maneuvers were
performed. Transesophageal echocardiography revealed no paravalvular leak and appropriate prosthetic function. Once de-airing was satisfactory, the left ventricular and root vents were removed. After verifying acceptable parameters, we initiated
weaning from cardiopulmonary bypass. Once we were off cardiopulmonary bypass, the venous cannulas was clamped and removed. A test dose of protamine was administered and the patient was monitored for any adverse reaction before resuming protamine.
Once half of the protamine dose was delivered, pump suckers were turned off and the systolic blood pressure was lowered for aortic decannulation. The aortic cannula was removed and pursestrings were tied down. All cannulation sites were oversewn
with a 4-0 prolene. The aortic line, proximal, and distal coronary anastomoses were hemostatic. The mammary bed was inspected and hemostasis was confirmed. Once the mediastinum was hemostatic, a 19Fr Jim drain was placed in the left pleural cavity
and two 24Fr Jim drains were placed within the pericardium. The sternum was approximated with 4#7 single and 3 #8 double stainless steel wires. Fascia was approximated with #1 vicryl suture. The subcutaneous, dermis and epidermis were closed in
layers in a running fashion. The skin wound was cleansed and dressed.
All instrument, sponge, and needle counts were confirmed to be correct x 2 at the end of the operation. At this point there was significant bleeding from the endotracheal tube. I had to perform an emergency bronchoscopy and relocate the tube into
the left mainstem bronchus for temporary control. At this point once airway was controlled, the patient was transferred over to the Hoop Maker for an intervention for the PA perforation.
I, Dr. Rodolfo Lubin, was present, scrubbed for, and performed all critical elements of this procedure.
Rodolfo Lubin MD, MS
Cardiothoracic Surgeon
[facility]
This operative dictation was created using the [employer] dictation system. Please excuse any grammatical, typographical, or 'sound alike' errors
[2025-05-23 19:38] LABS: B.E. -0.2 mmol/L; HCO3 27.6 mmol/L (21-28); O2 Saturation % 99.0 % (94-98); PCO2 60 mmHg (35-48); PO2 129 mmHg (83-108); Potassium 4.6 mMOL/L (3.5-5.1); Sodium 136 mMOL/L (136-145)
[2025-05-23 19:43] LABS: INR 1.46; PT 18.0 Sec (11.4-14.6)
[2025-05-23 19:44] LABS: APTT 31.7 Sec (23.4-35.0)
[2025-05-23] MEDS: DILAUDID 0.5 MG IV (19:45)
--- NOTE | 2025-05-23 20:00 | PTCARENOTE ---
Pt admitted to CVICU with CVOR team from labor arbitrator at 1915. Pt sedated and on ventilator. No spontaneous movement, no commands. Remains sedated. Precedex at 0.4 mcg/kg/hr. Pt with #8 ett, taped at 24 at Left lip. BBS present. Decreased to B bases.
Placed on 100% FiO2, SIMV mode, rate 20, peep 5, PS 5, TV 400. Audible heart tones. Pt in SR, rate 60's. Levo gtt at 4 mcg/min. Goal SBP per Dr. Lubin is 90-110 mm HG. Pt with L brachial A-line, R femoral arterial sheath. Both lines levelled and
zeroed. Pulsatile waveforms to monitor. Cuff BP also recorded. RIJ [place] Cristina catheter and cordis intact. Pulsatile PA and CVP waveforms. Order given from PA to not check CO/CI. MVO2 sent with admission labs. CT x 3, to - 20 cm suction. Draining red,
bloody drainage. Drainage checked q 1 hr and prn. AV wires present. placed next to temp pacing box in case of emergency. BLE femoral venous sheaths also present. BLE pulse checks per protocol. BLE DP and PT pulses checked via doppler. For other
pulse assessments and wound assessments, see flowsheets. See flowsheet. Belly soft, nontender. Hypoactive bs x 4. Galeas draining clear, yellow urine. Hourly UO recorded. Temp 95.9. Tia hugger applied. Goal temp 98 degrees. Glycemic protocol
maintained. Family in briefly to see pt ( and daughter). Updated on pt status. Ongoing plan of care.
[2025-05-23 20:01] LABS: Blood Urea Nitrogen 13 mg/dl (9-20); Estimated Creatinine Clearance 78 ml/min; Glucose 157 mg/dl (70-99); Magnesium 2.3 mg/dl (1.6-2.3)
[2025-05-23 20:04] LABS: Hematocrit 31.9 % (39.0-52.0); Hemoglobin 10.6 g/dL (13.0-18.0); Platelet Count 163 10^3/uL (130-400)
[2025-05-23 20:51] LABS: Glucose - Point of Care 163 mg/dl (70-99)
[2025-05-23] MEDS: SUBLIMAZE 50 MCG IV (21:20)
[2025-05-23] MEDS: SUBLIMAZE 100 IV (21:24)
[2025-05-23] MEDS: CALCIUM GLUCONATE 130 MG IV (21:39)
[2025-05-23] MEDS: PRECEDEX 100 IV (21:55)
[2025-05-23 22:01] LABS: Glucose - Point of Care 140 mg/dl (70-99)
[2025-05-23] MEDS: FERRLECIT IV (22:02)
[2025-05-23] MEDS: NEURONTIN PO ×2 (22:02)
[2025-05-23] MEDS: NSS 500 IV (22:03)
[2025-05-23] MEDS: SENOKOT-S PO (22:04)
[2025-05-23] MEDS: PACERONE PO (22:04)
[2025-05-23] MEDS: EFFEXOR XR PO (22:05)
[2025-05-23] MEDS: ANCEF 5 IV (22:05)
[2025-05-23] MEDS: PRAVACHOL PO (22:05)
[2025-05-23] MEDS: TYLENOL PO (22:06)
[2025-05-23 22:59] LABS: Glucose - Point of Care 132 mg/dl (70-99)
[2025-05-23 23:48] LABS: Triglycerides 87 mg/dl (10-149)
[2025-05-24] VITALS (41 sets, daily range): BP systolic 86–156; BP diastolic 54–77; BMI 29.9
--- NOTE | 2025-05-24 | PTCARENOTE ---
Levo gtt titrated between 1 and 4 mcg/min to keep SBP 90-110 mmHG. Ca Gluconate 3 GM IV given per order PA. Pt more awake at 2250. Opened eyes, focused on speaker. Gripped to command, wiggled toes to command. Shook head no to pain. Precedex titrated
to off. Propofol gtt started at 5 mcg/kg/min. Fentanyl gtt at 25 mcg/hr. Vent mode changed to AC, FiO2 80%, rate 22, TV 400, peep 5. ABG drawn. PA with results. Tia hugger off at 0050. Temp > 98. at bedside at ~ 200, updated on status. Went
home for evening. Encouraged to call if desired. Assured her CVICU team would call her for any changes in 's condition. Glycemic protocol maintained. Ongoing plan of care.
[2025-05-24 00:16] LABS: Glucose - Point of Care 105 mg/dl (70-99)
[2025-05-24 00:19] LABS: B.E. 1.7 mmol/L; HCO3 25.7 mmol/L (21-28); O2 Saturation % 100.0 % (94-98); PCO2 37 mmHg (35-48); PO2 237 mmHg (83-108)
[2025-05-24 00:52] LABS: Glucose - Point of Care 75 mg/dl (70-99)
[2025-05-24 00:53] LABS: Glucose - Point of Care 87 mg/dl (70-99)
--- NOTE | 2025-05-24 01:07 | W.PN.CT ---
Addendum entered and electronically signed by Emeka Livingston MD 05/24/25 09:15:
DAPHNE 2262: POD#1 s/p AVR/CABG x 4/ELAA � SGC PA perforation mgmt. w/ coil embolization
No major overnight events.� AVSS.� AC/21/400/40/5.� 7.45/34/153/23.6/-0.1/99.� GTTS: levophed 1, fentanyl 30, propofol 30.� UO: 20 last hour.� CXR w/ expected opacification of R base.� Neuro: intact.
-��������� Bronch this AM
-��������� Wean sedation/vent as tolerated
-��������� Potential extubation if looks good w/ good air leak
-��������� Hold ASA/Plavix today, will plan resumption tomorrow
-��������� Diuresis
-��������� Prophylactic ABX for pulmonary hemorrhage/manipulation
Original Note:
Today's Communication / Plan
-
Plan:
-No major issues overnight. Hemodynamically and neuro intact off sedation
-Currently sedated and intubated. Follows commands and moves extremities appropriately of sedation
-Current drips: Fentanyl @ 25, Propofol @ 20, Levophed @ 5
-Remains intubated. Vent transitioned to A/C overnight. ABG this AM on TV 400, r 22, peep 5, Fio2 60: 7.45/34/153/23/99.9. FIO2 decreased to 40%, rate down to 21
-For possible bronchoscopy today
-Wean off ventilator as tolerated
-Wean off sedation as tolerated
-MVO2 75.7, U/O since OR 840 mL
-Monitor chest tube output: 2meds 210/210; L pl 45/45. Cxr with right basilar opacification, otherwise clear on my review. F/U official report
-Wean off Levophed as tolerated
-D/C swan and a-line when off Levophed
-Keep smiley
-Maintain temporary PW
-Holding Amiodarone and BB given postop bradycardia and hypotension
Assessment / Plan
-
Assessment:
-S/P Status did not with aortic and right atrial cannulation/ Surgical aortic valve replacement (27 mm bioprosthetic)/Coronary artery bypass grafting x 4 (In situ BALLARD to LAD, Ao to RSVG to ramus sequential to OM, Ao to RSVG to RPDA)/Endoscopic vein
harvesting of the right lower extremity/Left atrial appendage exclusion [35 mm device]/Bronchoscopy with clearing of airway, by Dr. Lubin, 05/23/25, pod#1
-Procedure complicated by massive hemoptysis/airway hemorrhage from PA swallowing perforation s/p intraop bronchoscopy and subsequent coil embolization and hemostasis by Dr. Black, 05/23/25
-Severe aortic valve stenosis, symptomatic
-LVEF 60% per ELMIRA
-Multivessel coronary artery disease
-NSTEMI
-History of previous PCI for MIs
-History of GI bleeding/PUD
-Hyperlipidemia
-Hypertension
-Acute postop blood loss/Anemia on preop/chronic anemia (transfused 1u PRBC preop and 4u intraop)
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
-Acute postop VDRF
-Acute postop hypovolemia with subsequent hypervolemia
Discussed patient care with: Cardiology, Nursing, Respiratory Therapy, Pharmacy and Care Team
Subjective
Procedure
-S/P Status did not with aortic and right atrial cannulation/ Surgical aortic valve replacement (27 mm bioprosthetic)/Coronary artery bypass grafting x 4 (In situ BALLARD to LAD, Ao to RSVG to ramus sequential to OM, Ao to RSVG to RPDA)/Endoscopic vein
harvesting of the right lower extremity/Left atrial appendage exclusion [35 mm device]/Bronchoscopy with clearing of airway, by Dr. Lubin, 05/23/25
-Procedure complicated by massive hemoptysis/airway hemorrhage from PA swallowing perforation s/p intraop bronchoscopy and subsequent coil embolization and hemostasis by Dr. Black, 05/23/25
-
Date of Service: May 24, 2025
Objective Data
-
Lab Results
05/23/25 21:30
PT 18.0 Sec (11.4-14.6) H 05/23/25 19:16
INR 1.46 05/23/25 19:16
APTT 31.7 Sec (23.4-35.0) 05/23/25 19:16
Vital Signs
Vital Signs
Temp Pulse Resp BP Pulse Ox
98.2 F 56 22 101/59 100
05/24/25 01:00 05/24/25 00:20 05/24/25 00:20 05/24/25 00:20 05/24/25 00:50
CT Intake/Output/Weight
05/23/25 05/23/25 05/24/25
06:59 18:59 06:59
Intake Total 2430 / 2430 649.6 / 649.6
Output Total 855 / 855
Balance 2430 / 2230 -205.4 / -205.4
SaO2: 100 (vent settings: A/C, 400, 21, 5, 40%)
Physical Exam
-
General: Awake, Oriented and AOx3
Cardiovascular: Regular rate & rhythm, No Murmurs, No Rub and No Gallop
Respiratory: Decreased Breath Sounds (at bases, otherwise clear)
Sternum: Stable
Incision: Clean, Dry, Intact and Dressing Intact
Extremities: Other (+trace edema)
Data Reviewed
-
Lab Results: Results Reviewed
Medications: Active Meds Reviewed
Chest X-Ray: Report Reviewed and Image Reviewed
ECG: Report Reviewed and Image Reviewed
[2025-05-24] MEDS: LOW STRENGTH ASPIRIN PO (01:50)
[2025-05-24] MEDS: NSS IV ×2 (01:51→16:30)
[2025-05-24 02:33] LABS: Glucose - Point of Care 106 mg/dl (70-99)
--- NOTE | 2025-05-24 02:40 | PTCARENOTE ---
Pt more awake. Opened eyes, grabbed for ett briefly. Pt reoriented to surroundings. Nodding head appropriately. Shakes head no to pain. Propofol gtt up to 15 mcg/kg/min. Remains in SR. FiO2 decreased to 60% at 0045. Sats remain 100%. Remains in AC
mode on vent. Levo gtt as high at 4.5 mcg/min to keep SBP 90-110.
[2025-05-24] MEDS: LEVOPHED 250 IV (04:15)
--- NOTE | 2025-05-24 04:15 | PTCARENOTE ---
Labs drawn and sent.
[2025-05-24 04:40] LABS: Glucose - Point of Care 107 mg/dl (70-99)
[2025-05-24 04:47] LABS: B.E. -0.1 mmol/L; HCO3 23.6 mmol/L (21-28); O2 Saturation % 99.5 % (94-98); PCO2 34 mmHg (35-48); PO2 153 mmHg (83-108)
[2025-05-24 04:48] LABS: O2 Therapy A/C, 400, 22, 5, 60%
[2025-05-24 04:48] LABS: Hematocrit 28.2 % (39.0-52.0); Hemoglobin 9.9 g/dL (13.0-18.0); Mean Corp Hgb Conc. 35.1 g/dL (33.0-37.0); Mean Corpuscular Volume 81.0 fL (80.0-94.0); Platelet Count 168 10^3/uL (130-400); Red Cell Dist. Width 14.8 % (11.5-14.5)
[2025-05-24 04:59] LABS: INR 1.23; PT 15.8 Sec (11.4-14.6)
[2025-05-24 05:10] LABS: Blood Urea Nitrogen 16 mg/dl (9-20); Calcium 8.5 mg/dl (8.4-10.2); Carbon Dioxide 24 mmol/L (22-30); Chloride 110 mmol/L (98-107); Estimated Creatinine Clearance 63 ml/min; Glucose 96 mg/dl (70-99); Magnesium 2.0 mg/dl (1.6-2.3); Potassium 4.2 mmol/L (3.5-5.1); Sodium 138 mmol/L (135-145); eGFR > 60.00
[2025-05-24] MEDS: SUBLIMAZE 50 MCG IV ×2 (05:46→09:09)
[2025-05-24] MEDS: TYLENOL PO ×2 (06:23→13:48)
[2025-05-24] MEDS: ANCEF 5 IV ×2 (06:28→13:45)
[2025-05-24 06:51] LABS: Glucose - Point of Care 73 mg/dl (70-99)
--- NOTE | 2025-05-24 07:15 | PTCARENOTE ---
EKG done this am. CXR done this am. Pt more awake during positioning for CXR. Remains neuro intact. Follows commands x 4. Nods appropriately to questions. Propofol increased to 20 mcg/kg/min. Fentanyl 50 mcg IV x 1 given. Remains in SR. Levo gtt at
4 mcg/min. BP within desired range of SBP 90-[address] Lubin. Fio2 decreased to 40%, rate down to 21 br/min per PA order after ABG result this am. Sats 100%. Glycemic protocol maintained. Report to GARLAND Shay this am. Walking rounds done.
--- NOTE | 2025-05-24 07:39 | W.PN.ANS.POP ---
Anesthesia Post Operative
- Anesthesia Post Op Note
Vital Signs Stable-See Nursing Note: Yes
Airway Patent: Yes
Adequate Pain Control: Yes
Change in Mental Status: No
Current Postoperative Nausea & Vomiting: No
Anesthesia Complications: No
General Anesthetic Recall: No
Unplanned Admission: No
Post Op Hydration Adequate: Yes
--- NOTE | 2025-05-24 07:45 | PTCARENOTE ---
Patient received from shift superintendent resting in bed, intubated and sedated. Able to URBINA, follow simple commands, nods appropriately. NSR via cm, SaO2 @ 100% on ventilator, FiO2 40%. RIJ Cordis/[place]-Cristina catheter, L brachial arterial line, R femoral
arterial lines present - leveled, flushed, and calibrated w/good waveforms returned. Radial pulses palpable, DP/PT pulses obtainable via doppler. Epicardial A+V wires, available for connection to pulse generator. Mediastinal chest tubes x 2,
Y-connected to one pleurevac, L pleural chest tube to separate collection chamber, both to -20cm suction w/no air leaks noted. Galeas catheter to gravity. All procedural sites stable, no bleeding noted. Dr. Gonzáles to bedside, for bronchoscopy later
this morning. See work list for full assessment, interventions performed, and intravenous infusions and titrations.
[2025-05-24 08:12] LABS: Glucose - Point of Care 72 mg/dl (70-99)
[2025-05-24] MEDS: BACTROBAN 2% OINTMENT 1 APPLIC NASAL ×2 (08:18→20:17)
[2025-05-24] MEDS: NSS (PRESERVATIVE FREE) 10 ML IV ×2 (08:19→20:21)
[2025-05-24] MEDS: PROTONIX IV 40 MG IV ×2 (08:19→20:22)
[2025-05-24] MEDS: MAGNESIUM OXIDE PO (08:42)
[2025-05-24] MEDS: NEURONTIN PO (08:42)
[2025-05-24] MEDS: SENOKOT-S PO (08:43)
[2025-05-24] MEDS: VITAMIN C PO (08:43)
[2025-05-24 09:01] LABS: Glucose - Point of Care 73 mg/dl (70-99)
--- NOTE | 2025-05-24 09:45 | PTCARENOTE ---
Bronchoscopy completed at bedside by Dr. Gonzáles, patient tolerated well. Hemodynamics stable.
[2025-05-24] MEDS: DIPRIVAN 100 IV (09:49)
[2025-05-24 10:03] LABS: Glucose - Point of Care 74 mg/dl (70-99)
[2025-05-24 11:02] LABS: Glucose - Point of Care 73 mg/dl (70-99)
--- NOTE | 2025-05-24 11:33 | W.PN.INTV ---
Today's Communication / Plan
Recommendations
- S/p bronchoscopy, no active bleeding noted, blood clots suctioned
- Empiric ampicillin/sulbactam, recommend 5 days antibiotic treatment
- SAT/SBT
- Anticipate extubation later today
Assessment
-
Patient is a 74-year-old pleasant male w/ h/o HTN presented to ER with chest pain, lightheadedness, left arm numbness, SOB. Admitted on 05/21/25 with rule in for NSTEMI, on w/u also has severe . Underwent LHC on 05/22/25 with significant
multivessel coronary artery disease, confirmed severe . CTS planning for CAB and AVR on 05/23/25. Intraoperatively, noted to have endobronchial bleeding suspicious for possible PA rupture vs endobronchial tears. He is in OR, intubated with double
lumen ETT. Bronchoscopy performed emergently in OR but cannot locate specific site of bleeding. Clots are noted throughout omar and bilateral main stems for poor visualization. Epi delivered into lungs x 3. Saturations notable are 100% on vent,
ABG with pH 6.9, PCO2 >100. He is closed and will be heading to senior laboratory technician. We are consulted for evaluation.
Severe s/p AVR 05/23/25
MV CAD s/p CAB 05/23/25
Endobronchial bleeding, pulmonary artery injury with endobronchial bleeding
Intubated on MV with double lumen tube
NSTEMI rule/in
Acute hypoxic and hypercarbic respiratory failure
Severe respiratory acidosis
GIB
ABLA
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
RCA PCI in 1996
Known aortic stenosis with last echo in 2021
Gastric ulcer 15 years ago
Hypertension
Hyperlipidemia
Plan
Hemoptysis, in the setting of pulmonary artery injury. S/p coiling of the bleeding artery, no further hemoptysis
Status post bronchoscopy 05/24, clearing of blood clots, no active bleeding noted
Currently on volume assist-control 400/21/40%/5. Saturating 94%. Blood gas 7.40 03/07/153
- Continue to lower sedation, SAT and SBT, anticipate extubation later today
- Currently on fentanyl and propofol, continue to wean off
- Empiric antibiotics, ampicillin/sulbactam for 5 days
s/p CAB/AVR POD #1
Titrate off pressors per protocol, currently down to Levophed at 1
ECHO reviewed with normal function
PA catheter readings reviewed, /, mean of 22
Management of chest tubes per primary service
Intubated/sedated, initiate SAT when able
Pain control
RASS goal of 0 to -1
CXR with stable moderate opacification of right lower lung field consistent with endobronchial bleeding.
s/p bronch 05/23--poor visualization, suctioning of clots.
Maintain supplement oxygen as needed
No prior history of pulmonary disease
No prior PFTs for review
Can add nebulizers if needed
Aspiration precautions
Encouraged incentive spirometry, OOB/ambulation/early mobility
Advance diet as tolerated following extubation
GI prophylaxis if indicated for mechanical ventilation >48 hours
Monitor critical I/O's
Galeas/chest tube output
Hb/platelets postoperatively to be completed, transfusion if needed
Trend CBC for now
Can transfuse if indicated for Hb <7, plt <50 in surgical patients
DVT prophylaxis including SCDs
Insulin per protocol
We will follow
Diagnostic Data
CXR 05/23/25- No acute radiographic abnormality in the chest
CTA 05/23/25- 1. No thoracic aortic aneurysm or dissection. No pulmonary embolism.
2. No significant acute abnormality identified in the chest, as described above.
3. Moderate coronary artery calcifications.
4. Tiny 4 mm left lower lobe pulmonary nodule, likely benign. If the patient is considered high risk, an optional follow-up noncontrast CT chest can be obtained in 12 months.
ECHO 05/21/25: Severe peak/mean 81/52 mmHg, GUADALUPE 0.8 cm�, LVEF 65%, normal RV size and function, no AI, mild MR
ECG: Sinus rhythm, inferolateral ST segment depression consistent with injury, increased over May 21
Hemoglobin 8.3 BUN and creatinine 19 and 0.8 troponin 2.09, had been 0.1, proBNP is 41
Critical Care time 80 mins -- The patient is admitted for acute critical illness for the treatment of vital organ failure and/or prevention of further life-threatening conditions. Total care includes time spent in review of history, physical exam,
medications, hemodynamic/ventilator parameters, laboratory data, imaging and discussion with house staff, pharmacy, respiratory therapy, parts counterman, and nursing.
Subjective Dataa
Subjective Data
Date of Service:
Date of Service: May 24, 2025
Subjective:
Patient currently intubated, mechanically ventilated and sedated.
Review of Systems
General: Unobtainable - Sedation
Objective Data
Data Reviewed
Vital Signs / I&O / Oxygen:
Vital Signs
Temp Pulse Resp BP Pulse Ox
99.4 F 82 19 97/54 95
05/24/25 11:00 05/24/25 11:05 05/24/25 11:05 05/24/25 11:00 05/24/25 11:05
Intake and Output
05/23/25 05/24/25 05/25/25
06:59 06:59 06:59
Intake Total 2430 / 2430 1060.0 / 1128.6 305.0 / 305.0
Output Total 200 / 200 1135 / 1170 195 / 195
Balance 2230 / 2230 -75.0 / -41.4 110.0 / 110.0
SaO2 [SIMV] 100
SaO2 [A/C] 100
SaO2 95
Nasal Cannula flow liters per 2
minute
Physical Exam
General: Comfortable
HEENT: Normocephalic
Cardiovascular: S1-S2
Respiratory: Clear and Non-Labored Respirations
GI: Soft and Non Distended
Neurology: Other (Drowsy but wakes up with little stimulation)
Skin: Warm
Labs/Micro/Reports
Lab Data
05/24/25 04:17
05/24/25 04:12
Laboratory Results
05/23/25 05/24/25 05/24/25
19:16 00:09 04:12
PT 18.0 H 15.8 H
INR 1.46 1.23
APTT 31.7
pH 7.27 L 7.45 7.45
pCO2 60 H 37 34 L
pO2 129 H 237 H 153 H
HCO3 27.6 25.7 23.6
O2 Delivery Level A/c, 400, 22, 5, 60%
--- NOTE | 2025-05-24 11:40 | PTCARENOTE ---
RFA/RFV/LFV sheaths d/c'd by CHRISS Nova. B/L groin sites cdi, distal pulses remain obtainable via doppler. Patient tolerated well.
[2025-05-24 11:48] LABS: B.E. -3.0 mmol/L; HCO3 22.0 mmol/L (21-28); O2 Saturation % 98.8 % (94-98); PCO2 38 mmHg (35-48); PO2 106 mmHg (83-108)
[2025-05-24] MEDS: UNASYN IV ×2 (11:57→18:19)
[2025-05-24 13:03] LABS: Glucose - Point of Care 92 mg/dl (70-99)
[2025-05-24] MEDS: OFIRMEV 100 IV (13:43)
[2025-05-24] MEDS: LOPRESSOR 5 MG IV (13:45)
[2025-05-24 14:25] LABS: B.E. -0.1 mmol/L; HCO3 23.9 mmol/L (21-28); O2 Saturation % 99.8 % (94-98); PCO2 36 mmHg (35-48); PO2 126 mmHg (83-108)
[2025-05-24] MEDS: DILAUDID 0.25 MG IV ×2 (14:33→14:57)
--- NOTE | 2025-05-24 14:52 | RESPNOTE ---
14:50 extubated patient and placed on 6L nasal cannula 98%
--- NOTE | 2025-05-24 14:55 | PTCARENOTE ---
Pt displayed breaths above set ventilator rate. CPAP wean initiated. No apnea noted, patient URBINA, follows commands. ABG obtained, wnl, results conveyed to CHRISS Rohini. Patient extubated to 6lnc w/out incident, Sao2 98%.
[2025-05-24 15:06] LABS: Glucose - Point of Care 87 mg/dl (70-99)
[2025-05-24] MEDS: NEURONTIN 100 MG PO ×2 (15:41→22:46)
[2025-05-24] MEDS: LASIX 40 MG IV (15:41)
[2025-05-24] MEDS: PACERONE 200 MG PO ×2 (15:41→22:46)
[2025-05-24] MEDS: FERRLECIT 110 MG IV (15:41)
[2025-05-24] MEDS: MUCINEX 1200 MG PO ×2 (16:12→20:08)
[2025-05-24] MEDS: ROXICODONE 5 MG PO (16:12)
[2025-05-24] MEDS: DIOVAN 40 MG PO (16:27)
[2025-05-24] MEDS: HYCODAN SYRUP 10 ML PO (16:51)
[2025-05-24 17:02] LABS: Glucose - Point of Care 104 mg/dl (70-99)
[2025-05-24 19:10] LABS: Glucose - Point of Care 118 mg/dl (70-99)
[2025-05-24] MEDS: FLEXERIL 5 MG PO (20:08)
[2025-05-24] MEDS: LOPRESSOR 25 MG PO (20:20)
[2025-05-24] MEDS: MAGNESIUM OXIDE 500 MG PO (20:21)
[2025-05-24] MEDS: SENOKOT-S 1 TABLET PO (20:22)
[2025-05-24] MEDS: REMOVE LIDOCAINE PATCH REMOVE (20:23)
[2025-05-24] MEDS: DILAUDID 0.5 MG IV (20:29)
--- NOTE | 2025-05-24 21:00 | PTCARENOTE ---
Report received from GARLAND Shay. Walking rounds done. Pt awake, oriented to person, place, time. Speech clear. Equal extremity strength x 4. Pt on 4L/NC. Frequent harsh, moist nonproductive cough. Mucinex given as ordered. Both IS and acapella
device explained and done with pt. Peak IS 1000 mls. C/O sternal pain, 04/17. Flexeril 5 mg po given at 2007. Pt repositioned x 2 in bed. Dilaudid 0.5 mg IV also given to pt for c/o continued severe pain. BBS present. Scattered rhonchi present, more
in R lobe. Sats on 4L/NC are 95%. Pt with audible heart tones. In SR/ST with frequent PVCs at times. Discussed with PA. KCL 20 meQ po given. Magnesium supplement given as ordered. Pt received Lasix 40 mg IV today with + diuresis. Vascular checks
to B groins and BLE. Unable to Doppler a L foot DP pulse. PA aware. Keeping legs dependent for now. Feet cool, no c/o pain. Warm blanket applied. Will recheck for a L DP pulse via doppler. BP 130-140's systolic. L brachial A line with pulsatile
waveform. RIJ Ing[place] Cristina catheter intact with pulsatile PA and CVP waveforms. Metoprolol 25 mg po given per order. CT x 3 to -20 cm suction. AV wires next to temp PM box in case of emergency. For pulse and wound assessments, see flowsheets. Belly
soft, nontender. Hypoactive bs x 4. Galeas to drain. Outputs recorded. Glycemic protocol d/c'ed at 1900 per order. at bedside. Ongoing plan of care.
[2025-05-24] MEDS: KCL 20 MEQ PO (21:18)
[2025-05-24] MEDS: DUONEB 3 ML INH (22:24)
[2025-05-24] MEDS: EFFEXOR XR 150 MG PO (22:45)
[2025-05-24] MEDS: TYLENOL 1000 MG PO (22:46)
[2025-05-24] MEDS: PRAVACHOL 40 MG PO (22:46)
--- NOTE | 2025-05-24 23:00 | PTCARENOTE ---
L foot DP pulse reassessed. Able to find pulse via doppler. PA in to see pt. Duoneb ordered and given per RT. Pt performed IS and acapella device again. O2 weaned to 2 L/NC. Sats 96%. Evening meds given as scheduled. Remains in SR-ST with occasional
PVC. C/O seeing a transient 'mist ' when opening his eyes at times. PA aware. Later pt stated it had resolved. No other visual complaints. No motor deficits. left for evening. Pt attempting to go to sleep. Ongoing plan of care.
[2025-05-25] VITALS (39 sets, daily range): BP systolic 90–128; BP diastolic 49–93; BMI 29.3
[2025-05-25] MEDS: UNASYN IV ×5 (00:25→23:14)
--- NOTE | 2025-05-25 02:30 | PTCARENOTE ---
Pt remains in SR. O2 sats on 2L/NC are 96%. Currently asleep.
[2025-05-25] MEDS: TYLENOL 650 MG PO (04:09)
[2025-05-25] MEDS: HYCODAN SYRUP 5 ML PO ×3 (04:10→20:35)
--- NOTE | 2025-05-25 04:20 | W.PN.CT ---
Addendum entered and electronically signed by Emeka Livingston MD 05/25/25 09:17:
I saw and examined the patient.
The PA's note was reviewed and I agree with the note.
Comment:
Extubated doing well
D/C SGC
D/C A-line (brachial)
Restart ASA/plavix
Continue empiric unasyn x 5 days
Original Note:
Today's Communication / Plan
-
Plan:
-No major issues overnight. Hemodynamically and neurologically intact
-Weaned off Levophed and insulin gtt
-Successfully extubated yesterday 05/24/25 @ 1445
-Underwent bronchoscopy yesterday 05/24/25 with evacuation of clots, no active bleeding
-Empiric antibiotics added by Pulm, Unasyn x 5 days course
-Monitor chest tube output for possible d/c: 2meds 120/320; L pl 40/60. Cxr with right basilar opacification, otherwise clear on my review. F/U official report
-D/C swan and a-line
-Will D/C smiley catheter
-Will likely pull temporary PW today
-Resumed Amiodarone, BB increased as postop bradycardia/hypotension has resolved
-Encourage use of IS/Pulmonary toilet, DuoNeb nebulizer tx added
-OOB into chair/Ambulate
Assessment / Plan
-
Assessment:
-S/P Status did not with aortic and right atrial cannulation/ Surgical aortic valve replacement (27 mm bioprosthetic)/Coronary artery bypass grafting x 4 (In situ BALLARD to LAD, Ao to RSVG to ramus sequential to OM, Ao to RSVG to RPDA)/Endoscopic vein
harvesting of the right lower extremity/Left atrial appendage exclusion [35 mm device]/Bronchoscopy with clearing of airway, by Dr. Lubin, 05/23/25, pod#2
-Procedure complicated by massive hemoptysis/airway hemorrhage from PA swallowing perforation s/p intraop bronchoscopy and subsequent coil embolization and hemostasis by Dr. Black, 05/23/25
-Severe aortic valve stenosis, symptomatic
-LVEF 60% per [place]
-Multivessel coronary artery disease
-NSTEMI
-History of previous PCI for MIs
-History of GI bleeding/PUD
-Hyperlipidemia
-Hypertension
-Acute postop blood loss/Anemia on preop/chronic anemia (transfused 1u PRBC preop and 4u intraop)
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
-Acute postop VDRF
-Acute postop hypovolemia with subsequent hypervolemia
-Acute postop bronchoscopy 05/24/25 with evacuation of clots, no active bleeding
Discussed patient care with: Cardiology, Nursing, Respiratory Therapy, Pharmacy and Care Team
Subjective
Procedure
-S/P Status did not with aortic and right atrial cannulation/ Surgical aortic valve replacement (27 mm bioprosthetic)/Coronary artery bypass grafting x 4 (In situ BALLARD to LAD, Ao to RSVG to ramus sequential to OM, Ao to RSVG to RPDA)/Endoscopic vein
harvesting of the right lower extremity/Left atrial appendage exclusion [35 mm device]/Bronchoscopy with clearing of airway, by Dr. Lubin, 05/23/25
-Procedure complicated by massive hemoptysis/airway hemorrhage from PA swallowing perforation s/p intraop bronchoscopy and subsequent coil embolization and hemostasis by Dr. Black, 05/23/25
-
Date of Service: May 25, 2025
Pt c/o mild incisional pain and non-productive cough
Objective Data
-
Lab Results
05/24/25 04:17
PT 15.8 Sec (11.4-14.6) H 05/24/25 04:12
INR 1.23 05/24/25 04:12
APTT 31.7 Sec (23.4-35.0) 05/23/25 19:16
Vital Signs
Vital Signs
Temp Pulse Resp BP Pulse Ox
99.8 F 86 18 124/61 96
05/25/25 03:00 05/25/25 03:00 05/25/25 03:00 05/25/25 02:00 05/25/25 03:00
CT Intake/Output/Weight
05/24/25 05/24/25 05/25/25
06:59 18:59 06:59
Intake Total 1060.0 / 1128.6 486.5 / 1226.5 740 / 1226.5
Output Total 1135 / 1170 1350 / 2170 820 / 2170
Balance -75.0 / -41.4 -863.5 / -943.5 -80 / -943.5
SaO2: 96 (2L)
Physical Exam
-
General: Awake, Oriented and AOx3
Cardiovascular: Regular rate & rhythm, No Murmurs, No Rub and No Gallop
Respiratory: Other (coarse breath sounds)
Sternum: Stable
Incision: Clean, Dry, Intact and Dressing Intact
Extremities: Other (+trace edema)
Data Reviewed
-
Lab Results: Results Reviewed
Medications: Active Meds Reviewed
Chest X-Ray: Report Reviewed and Image Reviewed
ECG: Report Reviewed and Image Reviewed
[2025-05-25 05:04] LABS: Hematocrit 27.4 % (39.0-52.0); Hemoglobin 9.5 g/dL (13.0-18.0); Mean Corp Hgb Conc. 34.7 g/dL (33.0-37.0); Mean Corpuscular Volume 82.3 fL (80.0-94.0); Platelet Count 147 10^3/uL (130-400); Red Cell Dist. Width 15.5 % (11.5-14.5)
[2025-05-25 05:45] LABS: Blood Urea Nitrogen 21 mg/dl (9-20); Calcium 8.2 mg/dl (8.4-10.2); Carbon Dioxide 24 mmol/L (22-30); Chloride 108 mmol/L (98-107); Estimated Creatinine Clearance 78 ml/min; Glucose 132 mg/dl (70-99); Magnesium 1.9 mg/dl (1.6-2.3); Potassium 4.2 mmol/L (3.5-5.1); Sodium 135 mmol/L (135-145); eGFR > 60.00
--- NOTE | 2025-05-25 06:30 | PTCARENOTE ---
Labs drawn and sent. Portable CXR done. [place] d/c'ed at 0605. With 4 RNs, Pt assisted to sitting, then standing. No c/o dizziness or lightheadedness. Weighed on standing scale, then assisted to chair. Cuff BP 100/50's. Continues to deny dizziness,
lightheadedness. Remains in SR, rate 80's. O2 sats 98% on 2L. Pt states he feels less congested and overall much better, rating sternal pain 3/10. Dr. Lubin in to see pt this am. Report to GARLAND Herr. Walking rounds done.
--- NOTE | 2025-05-25 07:00 | PTCARENOTE ---
report received from previous RN. Pt OOB in chair, resting comfortably. right IJ swan/cordis intact with appropriate waveform. left brachial arterial line leveled and zeroed with appropriate waveform. SR on telemetry heart rate 80-90s. DP pulses by
doppler. radial pulses palpable. +1 edema hands. pt on 3L nasal cannula, sat 99%. lung sounds diminished in bases. IS 1000. active bowel sounds. denies urge to void at this time. CTx3 to -20 suction, no air leaks or crepitus noted. AV wires
insulated. surgical sites CDI. pt updated on plan of care. see worklist for full nursing assessment and interventions.
[2025-05-25] MEDS: DUONEB 3 ML INH ×4 (08:04→18:34)
[2025-05-25] MEDS: TYLENOL 1000 MG PO ×3 (08:29→22:24)
[2025-05-25] MEDS: SENOKOT-S 1 TABLET PO ×2 (08:30→20:49)
[2025-05-25] MEDS: PACERONE 200 MG PO ×3 (08:30→22:23)
[2025-05-25] MEDS: PLAVIX 75 MG PO (08:30)
[2025-05-25] MEDS: NEURONTIN 100 MG PO ×3 (08:30→22:23)
[2025-05-25] MEDS: VITAMIN C 500 MG PO (08:30)
[2025-05-25] MEDS: MUCINEX 1200 MG PO (08:30)
[2025-05-25] MEDS: MAGNESIUM OXIDE 500 MG PO ×2 (08:30→20:48)
[2025-05-25] MEDS: LOW STRENGTH ASPIRIN 81 MG PO (08:30)
[2025-05-25] MEDS: NSS (PRESERVATIVE FREE) 10 ML IV ×2 (08:31→20:49)
[2025-05-25] MEDS: PROTONIX IV 40 MG IV ×2 (08:31→20:49)
[2025-05-25] MEDS: LOPRESSOR 25 MG PO ×2 (08:31→20:48)
[2025-05-25] MEDS: BACTROBAN 2% OINTMENT 1 APPLIC NASAL ×2 (08:32→20:48)
--- NOTE | 2025-05-25 08:36 | W.PN.CARDCBS ---
Today's Communication / Plan
-
Stable cardiology status status post CABG/AVR on 05/23/25
Impression / Plan
-
Primary Mail Clerk Bills: Dr. Edwards of [facility] [place] in [place], [place],
Assessment:
Status post CABG with BALLARD to LAD, vein graft to ramus sequential to OM, vein graft to right PDA), AVR number 27 mm bioprosthetic on 05/23/2025
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
CAD s/p RCA PCI with bare-metal stents x2 1996
Inferior [place] 1996
History of gastric ulcer ~15 years ago
Severe
HTN
HLD
ECHO 05/21/25: Severe peak/mean 81/52 mmHg, GUADALUPE 0.8 cm�, LVEF 65%, normal RV size and function, no AI, mild MR
Catheterization 05/22/2025:
CONCLUSIONS
1. Significant multivessel coronary artery disease.
2. Known severe aortic stenosis by most recent echocardiogram this admission.
Plan:
He continues to do very well
Remains in sinus rhythm
Discussed with patient's by phone and with CT surgery and nursing
Progress Note - Mail Clerk Bills
Subjective
Date of Service: May 25, 2025
No complaints
Objective
Labs:
05/25/25 04:54
05/25/25 04:44
Labs
Hgb 9.5 g/dL (13.0-18.0) L 05/25/25 04:54
Hct 27.4 % (39.0-52.0) L 05/25/25 04:54
Plt Count 147 10^3/uL (130-400) 05/25/25 04:54
PT 15.8 Sec (11.4-14.6) H 05/24/25 04:12
INR 1.23 05/24/25 04:12
APTT 31.7 Sec (23.4-35.0) 05/23/25 19:16
Sodium 135 mmol/L (135-145) 05/25/25 04:44
Potassium 4.2 mmol/L (3.5-5.1) 05/25/25 04:44
BUN 21 mg/dl (9-20) H 05/25/25 04:44
Creatinine 0.9 mg/dL (0.7-1.3) 05/25/25 04:44
Glucose 132 mg/dl (70-99) H 05/25/25 04:44
Troponins
05/22/25
11:35
Troponin I 5.420 H* D
Vital Signs and I&O:
Vital Signs
Temp Pulse Resp BP Pulse Ox
99.9 F 74 20 112/63 99
05/25/25 06:32 05/25/25 08:07 05/25/25 08:07 05/25/25 06:19 05/25/25 08:07
Vital Signs
Temp Pulse Resp BP Pulse Ox
99.9 F 74 20 112/63 99
05/25/25 06:32 05/25/25 08:07 05/25/25 08:07 05/25/25 06:19 05/25/25 08:07
Intake & Output
05/23/25 05/24/25 05/25/25 05/26/25
06:59 06:59 06:59 06:59
Intake Total 2430 / 2430 1060.0 / 1128.6 1286.5 / 1286.5
Output Total 200 / 200 1135 / 1170 2410 / 2410
Balance 2230 / 2230 -75.0 / -41.4 -1123.5 / -1123.5
Physical Exam
Physical Exam
General: Well developed, well nourished in NAD.
Neck: Supple, no JVD, HJR, carotids +2 B/L, no bruits bilaterally.
Heart: Non displaced PMI, RRR, no murmurs, No S3, S4, no rubs.
Lungs: Scattered rhonchi
Sternal dressings noted
Extremities: No clubbing, cyanosis or edema bilaterally.
Neuro: Grossly nonfocal, awake, alert and oriented x3.
--- NOTE | 2025-05-25 09:02 | W.PN.PUL3 ---
Addendum entered and electronically signed by Burke Gonzáles MD 05/25/25 17:42:
CXR resulted, elevated right hemidiaphram.
F/u imaging in AM. ?volume loss related to RLL atelectasis vs hemidiaphragm paralysis.
Continue to monitor, incentive spirometry
Added Budesonide BID, PRN Tessalon pearls and PRN Robitussin/DM for cough.
Original Note:
Today's Communication / Plan
-
- Incentive spirometry, follow-up chest x-ray in a.m.
- Continue Unasyn, Mucinex, add flutter valve
- Increase activity as tolerated
- Pulmonary team will continue to follow along
- Outpatient follow-up with [facility] pulmonary clinic
Assessment
-
Patient is a 74-year-old pleasant male w/ h/o HTN presented to ER with chest pain, lightheadedness, left arm numbness, SOB. Admitted on 05/21/25 with rule in for NSTEMI, on w/u also has severe . Underwent LHC on 05/22/25 with significant
multivessel coronary artery disease, confirmed severe . CTS planning for CAB and AVR on 05/23/25. Intraoperatively, noted to have endobronchial bleeding suspicious for possible PA rupture vs endobronchial tears. He is in OR, intubated with double
lumen ETT. Bronchoscopy performed emergently in OR but cannot locate specific site of bleeding. Clots are noted throughout omar and bilateral main stems for poor visualization. Epi delivered into lungs x 3. Saturations notable are 100% on vent,
ABG with pH 6.9, PCO2 >100. He is closed and will be heading to laboratory associate. We are consulted for evaluation.
Severe s/p AVR 05/23/25
MV CAD s/p CAB 05/23/25
Endobronchial bleeding, pulmonary artery injury with endobronchial bleeding
Intubated on MV with double lumen tube
NSTEMI rule/in
Acute hypoxic and hypercarbic respiratory failure
Severe respiratory acidosis
GIB
ABLA
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
RCA PCI in 1996
Known aortic stenosis with last echo in 2021
Gastric ulcer 15 years ago
Hypertension
Hyperlipidemia
Plan
Hemoptysis, in the setting of pulmonary artery injury. S/p coiling of the bleeding artery, no further hemoptysis
Status post bronchoscopy 05/24, clearing of blood clots, no active bleeding noted
Patient extubated successfully on 05/24. Saturation 95% on Room air today. No cough or hemoptysis noted.
- Incentive spirometry, RLL atelectasis noted on CXR, increase activity as tolerated. Mucinex and Duoneb continued.
- Empiric antibiotics, ampicillin/sulbactam for 5 days
s/p CAB/AVR POD #3
Titrated off pressors per protocol
ECHO reviewed with normal function
Management of chest tubes per primary service
CXR with stable moderate opacification of right lower lung field consistent with endobronchial bleeding.
No prior history of pulmonary disease
No prior PFTs for review
Can add nebulizers if needed
Aspiration precautions
Encouraged incentive spirometry, OOB/ambulation/early mobility
Advance diet as tolerated following extubation
GI prophylaxis
Monitor critical I/O's
Galeas/chest tube output
DVT prophylaxis including SCDs
Pulmonary team will continue to follow
Diagnostic Data
CXR 05/23/25- No acute radiographic abnormality in the chest
CTA 05/23/25- 1. No thoracic aortic aneurysm or dissection. No pulmonary embolism.
2. No significant acute abnormality identified in the chest, as described above.
3. Moderate coronary artery calcifications.
4. Tiny 4 mm left lower lobe pulmonary nodule, likely benign. If the patient is considered high risk, an optional follow-up noncontrast CT chest can be obtained in 12 months.
ECHO 05/21/25: Severe peak/mean 81/52 mmHg, GUADALUPE 0.8 cm�, LVEF 65%, normal RV size and function, no AI, mild MR
ECG: Sinus rhythm, inferolateral ST segment depression consistent with injury, increased over May 21
Hemoglobin 8.3 BUN and creatinine 19 and 0.8 troponin 2.09, had been 0.1, proBNP is 41
Subjective Data
-
Date of Service:
Date of Service: May 25, 2025
Subjective:
Patient comfortably sitting in bed in no acute distress.
Review of Systems
Genitourinary: Other (All 14 systems reviewed and negative except as stated above in the history of present illness.)
Objective Data
Data Reviewed
Vital Signs / I&O / Oxygen:
Vital Signs
Temp Pulse Resp BP Pulse Ox
99.9 F 82 20 113/50 99
05/25/25 06:32 05/25/25 08:31 05/25/25 08:07 05/25/25 08:31 05/25/25 08:07
Intake and Output
05/24/25 05/25/25 05/26/25
06:59 06:59 06:59
Intake Total 1060.0 / 1128.6 1286.5 / 1286.5
Output Total 1135 / 1170 2410 / 2410
Balance -75.0 / -41.4 -1123.5 / -1123.5
SaO2 [CPAP] 96
SaO2 [SIMV] 100
SaO2 [A/C] 97
SaO2 99
Nasal Cannula flow liters per 4
minute
Physical Exam
General: Comfortable
HEENT: Normocephalic
Cardiovascular: S1-S2
Respiratory: Clear
GI: Soft and Non Distended
Neurology: Awake and Alert
Labs/Micro/Reports
Lab Data
05/25/25 04:54
05/25/25 04:44
Laboratory Results
05/24/25 05/24/25
11:38 14:17
pH 7.37 7.43
pCO2 38 36
pO2 106 126 H
HCO3 22.0 23.9
O2 Delivery Level
--- NOTE | 2025-05-25 10:00 | PTCARENOTE ---
right IJ swan dced, pt tolerated well. Chest tubesx3 removed per orders without difficulty. PA removed left brachial arterial line. pt tolerated well, resting comfortably in bed.
--- NOTE | 2025-05-25 12:00 | PTCARENOTE ---
pt assisted OOB with 1 assist. ambulated to hallway with 1 rolling walker. vitals stable. no changes in assessment noted.
[2025-05-25] MEDS: DIOVAN PO (12:45)
[2025-05-25] MEDS: LASIX 40 MG IV (13:16)
[2025-05-25] MEDS: FERRLECIT 110 MG IV (14:14)
[2025-05-25] MEDS: ULTRAM 50 MG PO (15:37)
--- NOTE | 2025-05-25 16:00 | PTCARENOTE ---
pt assisted back to bed with 1 assist. pt reports frequent coughing/difficulty breathing, PA at bedside- order for hycodan received. respiratory at bedside for breathing treatment. pt sat 96-97% on 3L nasal cannula. encouraged deep breathing with IS
and acapella, ambulation, and sitting in chair
[2025-05-25] MEDS: HYCODAN SYRUP 10 ML PO (16:15)
[2025-05-25] MEDS: PULMICORT INH (17:37)
[2025-05-25] MEDS: TESSALON PERLES 200 MG PO (17:47)
[2025-05-25] MEDS: NSS 500 IV (17:47)
[2025-05-25] MEDS: ROBITUSSIN DM 5 ML PO ×2 (17:57→23:40)
[2025-05-25] MEDS: PULMICORT 0.5 MG INH (18:34)
[2025-05-25] MEDS: VENTOLIN NEBULES 1.25 MG INH (20:36)
--- NOTE | 2025-05-25 20:45 | PTCARENOTE ---
Report from GARLAND Herr. Walking rounds done. Pt awake, alert, oriented x 4. Sitting in recliner chair per request. C/O harsh, nonproductive cough. Feeling dyspneic at times. O2 at 3L/NC. Pt requested to be placed on 4L/NC/O2, done. Sats 95-96%. BBS
present. Scattered rhonchi throughout. R>L. Decreased to B bases. R more decreased than L. IS done, Peak 1000 mls. Pt performing acapella device. PA at bedside to assess pt. Albuterol tx ordered and given. Hycodan 5 mls po given. Pt expectorated
mucus, yet swallowed it. Stated he was feeling better. Sats now 96-97%.
Pt in SR-ST. Normotensive. AV wires insulated. Temp PM box at bedside in case of emergency. For pulse and wound assessments, see flowsheets. Belly soft, nontender. Normoactive bs x 4. Pt has yet to void. at bedside. Ongoing plan of care.
[2025-05-25] MEDS: REMOVE LIDOCAINE PATCH REMOVE (20:51)
[2025-05-25] MEDS: LOPRESSOR 2.5 MG IV ×2 (21:41→23:14)
[2025-05-25] MEDS: CALCIUM GLUCONATE 100 IV (21:54)
[2025-05-25] MEDS: KCL 20 MEQ PO (21:54)
[2025-05-25] MEDS: CORDARONE 103 MG IV (21:55)
--- NOTE | 2025-05-25 22:00 | PTCARENOTE ---
Pt walked on 5L/NC/O2 briefly in nur. Denies dyspnea, dizziness, lightheadedness. Pt helped back to room. Pt went into AF at 2125, rate 140-150's. Denies dizziness, lightheadedness, dyspnea. Pt refused to get into bed. Sat in recliner chair. BP
taken. Normotensive. Sats 100% on 5L/NC/O2. PA aware. Lopressor 2.5 mg IV ordered and given at 2140. Amiodarone bolus 150 mg IV given at 2154. KCL 20 meq po and Ca Gluconate 2 GM IV given per order. Pt continues to deny dyspnea, dizziness
lightheadedness. Frequent VS done. Pt remains normotensive. See VS flowsheet. Remains in AF, rate now 120-130's.
[2025-05-25] MEDS: EFFEXOR XR 150 MG PO (22:23)
[2025-05-25] MEDS: PRAVACHOL 40 MG PO (22:24)
[2025-05-25] MEDS: CORDARONE 518 MG IV (23:15)
[2025-05-26] VITALS (16 sets, daily range): BP systolic 93–131; BP diastolic 6–83; PULSE 71–75; O2SAT 93–96; BMI 29.8
--- NOTE | 2025-05-26 | PTCARENOTE ---
Additional Lopressor 2.5 mg IV given per order. VS done, See flowsheet. Amiodarone gtt started at 1 mg/min and per protocol through RI cordis. Pt remains in AF, rate 110-130's. Denies dyspnea, dizziness, lightheadedness. Pt has voided 250 mls
clear, yellow urine.
--- NOTE | 2025-05-26 01:30 | PTCARENOTE ---
Pt converted to SR at 0122. Rate 70's. Amio gtt at 1 mg/min, per protocol.
[2025-05-26] MEDS: HYCODAN SYRUP 5 ML PO ×4 (02:50→20:07)
--- NOTE | 2025-05-26 03:00 | PTCARENOTE ---
Hycodan syrup for cough given. See MAR.
--- NOTE | 2025-05-26 04:01 | W.PN.CT ---
Documented by User: Sterling Black PA-C 05/26/25 06:34
Today's Communication / Plan
-
Plan:
-No major issues overnight. Hemodynamically and neurologically intact
-Went into a-fib with RVR last night following walk in the halls with and nurse. Converted after IV Lopressor, Amiodarone bolus and Amiodarone gtt. Currently on Amiodarone gtt
-Underwent bronchoscopy with evacuation of clots, no active bleeding, on 05/24/25
-Empiric antibiotics added by Pulm, Unasyn x 5 days course
-On BID PPI, will undergo EGD/Colonoscopy as an outpatient, Hx of GI bleed/PUD
-Cxr with right basilar opacification, otherwise clear on my review. F/U official report
-Will likely cut temporary PW today
-Encourage use of IS/Pulmonary toilet, DuoNeb nebulizer/Pulmicort, chest PT tx added
-OOB into chair/Ambulate
-Home in 1-2 days
Assessment / Plan
-
Assessment:
-S/P Status did not with aortic and right atrial cannulation/ Surgical aortic valve replacement (27 mm bioprosthetic)/Coronary artery bypass grafting x 4 (In situ BALLARD to LAD, Ao to RSVG to ramus sequential to OM, Ao to RSVG to RPDA)/Endoscopic vein
harvesting of the right lower extremity/Left atrial appendage exclusion [35 mm device]/Bronchoscopy with clearing of airway, by Dr. Lubin, 05/23/25, pod#3
-Procedure complicated by massive hemoptysis/airway hemorrhage from PA swallowing perforation s/p intraop bronchoscopy, and subsequent coil embolization and hemostasis by Dr. Black, 05/23/25
-Severe aortic valve stenosis, symptomatic
-LVEF 60% per [facility]
-Multivessel coronary artery disease
-NSTEMI
-History of previous PCI for MIs
-History of GI bleeding/PUD
-Hyperlipidemia
-Hypertension
-Acute postop blood loss/Anemia on preop/chronic anemia (transfused 1u PRBC preop and 4u intraop)
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
-Acute postop VDRF
-Acute postop hypovolemia with subsequent hypervolemia
-Acute postop bronchoscopy 05/24/25 with evacuation of clots, no active bleeding
-Acute postop SVT and A-fib
-Acute postop hyponatremia
Discussed patient care with: Cardiology, Nursing, Respiratory Therapy, Pharmacy and Care Team
Subjective
Procedure
-S/P Status did not with aortic and right atrial cannulation/ Surgical aortic valve replacement (27 mm bioprosthetic)/Coronary artery bypass grafting x 4 (In situ BALLARD to LAD, Ao to RSVG to ramus sequential to OM, Ao to RSVG to RPDA)/Endoscopic vein
harvesting of the right lower extremity/Left atrial appendage exclusion [35 mm device]/Bronchoscopy with clearing of airway, by Dr. Lubin, 05/23/25
-Procedure complicated by massive hemoptysis/airway hemorrhage from PA swallowing perforation s/p intraop bronchoscopy and subsequent coil embolization and hemostasis by Dr. Black, 05/23/25
-
Date of Service: May 26, 2025
Pt c/o mild incisional pain and non-productive cough
Objective Data
-
PT 15.8 Sec (11.4-14.6) H 05/24/25 04:12
INR 1.23 05/24/25 04:12
APTT 31.7 Sec (23.4-35.0) 05/23/25 19:16
Vital Signs
Vital Signs
Temp Pulse Resp BP Pulse Ox
99 F 75 16 106/54 99
05/26/25 00:00 05/26/25 02:00 05/26/25 00:00 05/26/25 02:00 05/26/25 01:10
CT Intake/Output/Weight
05/25/25 05/25/25 05/26/25
06:59 18:59 06:59
Intake Total 800 / 1286.5 500 / 969.9 469.9 / 969.9
Output Total 1060 / 2410 700 / 950 250 / 950
Balance -260 / -1123.5 -200 / 19.9 219.9 / 19.9
SaO2: 99 (3L)
Physical Exam
-
General: Awake, Oriented and AOx3
Cardiovascular: Regular rate & rhythm, No Murmurs, No Rub and No Gallop
Respiratory: Decreased Breath Sounds (coarse )
Sternum: Stable
Incision: Clean, Dry, Intact and Dressing Intact
Extremities: Other (+trace edema)
Data Reviewed
-
Lab Results: Results Reviewed
Medications: Active Meds Reviewed
Chest X-Ray: Report Reviewed and Image Reviewed
CT Scan: Report Reviewed and Image Reviewed
ECG: Report Reviewed and Image Reviewed

Documented by User: ZACARIAS White 05/26/25 13:51
Assessment / Plan
-
Assessment:
-S/P Status did not with aortic and right atrial cannulation/ Surgical aortic valve replacement (27 mm bioprosthetic)/Coronary artery bypass grafting x 4 (In situ BALLARD to LAD, Ao to RSVG to ramus sequential to OM, Ao to RSVG to RPDA)/Endoscopic vein
harvesting of the right lower extremity/Left atrial appendage exclusion [35 mm device]/Bronchoscopy with clearing of airway, by Dr. Lubin, 05/23/25, pod#3
-Procedure complicated by massive hemoptysis/airway hemorrhage from PA swallowing perforation s/p intraop bronchoscopy, and subsequent coil embolization and hemostasis by Dr. Black, 05/23/25
-Severe aortic valve stenosis, symptomatic
-LVEF 60% per [facility]
-Multivessel coronary artery disease
-NSTEMI
-History of previous PCI for MIs
-History of GI bleeding/PUD
-Hyperlipidemia
-Hypertension
-Acute postop blood loss/Anemia on preop/chronic anemia (transfused 1u PRBC preop and 4u intraop)
-Intraop Pulmonary artery perforation likely from swan S/P 2 {5pk} plts, coil embolization.
Pulmonary artery perforation is a complication of the surgery
-Acute postop VDRF
-Acute postop hypovolemia with subsequent hypervolemia
-Acute postop bronchoscopy 05/24/25 with evacuation of clots, no active bleeding
-Acute postop SVT and A-fib
-Acute postop hyponatremia
[2025-05-26 06:10] LABS: Blood Urea Nitrogen 19 mg/dl (9-20); Calcium 8.2 mg/dl (8.4-10.2); Carbon Dioxide 29 mmol/L (22-30); Chloride 103 mmol/L (98-107); Estimated Creatinine Clearance 70 ml/min; Glucose 111 mg/dl (70-99); Magnesium 2.1 mg/dl (1.6-2.3); Potassium 3.7 mmol/L (3.5-5.1); Sodium 133 mmol/L (135-145); Triglycerides 89 mg/dl (10-149); eGFR > 60.00
[2025-05-26 06:14] LABS: Hematocrit 24.9 % (39.0-52.0); Hemoglobin 8.3 g/dL (13.0-18.0); Mean Corp Hgb Conc. 33.3 g/dL (33.0-37.0); Mean Corpuscular Volume 85.9 fL (80.0-94.0); Platelet Count 145 10^3/uL (130-400); Red Cell Dist. Width 15.5 % (11.5-14.5)
[2025-05-26] MEDS: TYLENOL 1000 MG PO ×3 (06:39→21:49)
[2025-05-26] MEDS: KCL 40 MEQ PO (06:40)
[2025-05-26] MEDS: UNASYN IV ×3 (06:40→17:41)
[2025-05-26] MEDS: DUONEB 3 ML INH ×2 (07:04→19:12)
[2025-05-26] MEDS: PULMICORT 0.5 MG INH ×2 (07:04→19:12)
--- NOTE | 2025-05-26 07:15 | PTCARENOTE ---
Labs drawn and sent. CXR done. Pt helped to standing weighed, then helped back to bed. Remains in SR, 70's. Sats 96-98% on 3L/NC. RT in at 0715 to see pt. Chest PT done by RT. Neb also given by RT. Report to GARLAND Shay. Walking rounds done.
--- NOTE | 2025-05-26 07:47 | W.PN.PUL3 ---
Today's Communication / Plan
-
Mild crackles at right base, atelectasis continues to improve
Airway clearance, IS, Acapella
Hemoglobin being followed by surgery
Assessment
-
Patient is a 74-year-old pleasant male w/ h/o HTN presented to ER with chest pain, lightheadedness, left arm numbness, SOB. Admitted on 05/21/25 with rule in for NSTEMI, on w/u also has severe . Underwent LHC on 05/22/25 with significant
multivessel coronary artery disease, confirmed severe . CTS planning for CAB and AVR on 05/23/25. Intraoperatively, noted to have endobronchial bleeding suspicious for possible PA rupture vs endobronchial tears. He is in OR, intubated with double
lumen ETT. Bronchoscopy performed emergently in OR but cannot locate specific site of bleeding. Clots are noted throughout omar and bilateral main stems for poor visualization. Epi delivered into lungs x 3. Saturations notable are 100% on vent,
ABG with pH 6.9, PCO2 >100. He is closed and will be heading to labor relations director. We are consulted for evaluation.
Severe s/p AVR 05/23/25
MV CAD s/p CAB 05/23/25
Endobronchial bleeding, pulmonary artery injury with endobronchial bleeding
Intubated on MV with double lumen tube
NSTEMI rule/in
Acute hypoxic and hypercarbic respiratory failure
Severe respiratory acidosis
GIB
ABLA
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
RCA PCI in 1996
Known aortic stenosis with last echo in 2021
Gastric ulcer 15 years ago
Hypertension
Hyperlipidemia
Plan/recommendations
Hemoptysis, in the setting of pulmonary artery injury. S/p coiling of the bleeding artery, no further hemoptysis
Status post bronchoscopy 05/24, clearing of blood clots, no active bleeding noted
Patient extubated successfully on 05/24. Saturation 95% on Room air today. No cough or hemoptysis noted.
- Incentive spirometry, RLL atelectasis noted on CXR, increase activity as tolerated. Mucinex and Duoneb continued.
- Empiric antibiotics, ampicillin/sulbactam for 5 days
- Per my review, chest x-ray with continued improvement of right basilar atelectasis as of 05/26
s/p CAB/AVR POD #3
Titrated off pressors per protocol
ECHO reviewed with normal function
Management of chest tubes per primary service
CXR with stable moderate opacification of right lower lung field consistent with endobronchial bleeding.
No prior history of pulmonary disease
No prior PFTs for review
Continue with DuoNebs 4 times daily, budesonide twice a day
Aspiration precautions
Encouraged incentive spirometry, OOB/ambulation/early mobility
Advance diet as tolerated following extubation
GI prophylaxis
Monitor critical I/O's
Galeas/chest tube output
DVT prophylaxis including SCDs
Pulmonary team will continue to follow
Diagnostic Data
CXR 05/23/25- No acute radiographic abnormality in the chest
CTA 05/23/25- 1. No thoracic aortic aneurysm or dissection. No pulmonary embolism.
2. No significant acute abnormality identified in the chest, as described above.
3. Moderate coronary artery calcifications.
4. Tiny 4 mm left lower lobe pulmonary nodule, likely benign. If the patient is considered high risk, an optional follow-up noncontrast CT chest can be obtained in 12 months.
ECHO 05/21/25: Severe peak/mean 81/52 mmHg, GUADALUPE 0.8 cm�, LVEF 65%, normal RV size and function, no AI, mild MR
ECG: Sinus rhythm, inferolateral ST segment depression consistent with injury, increased over May 21
Hemoglobin 8.3 BUN and creatinine 19 and 0.8 troponin 2.09, had been 0.1, proBNP is 41
Subjective Data
-
Date of Service:
Date of Service: May 26, 2025
Subjective:
Patient continues to complain of chest congestion and shortness of breath. However is ambulating without difficulty. Finds it difficult to expectorate. Denies hemoptysis
Objective Data
Data Reviewed
Vital Signs / I&O / Oxygen:
Vital Signs
Temp Pulse Resp BP Pulse Ox
99 F 74 18 117/59 96
05/26/25 00:00 05/26/25 07:14 05/26/25 07:14 05/26/25 06:42 05/26/25 07:38
Intake and Output
05/25/25 05/26/25 05/27/25
06:59 06:59 06:59
Intake Total 1286.5 / 1286.5 1169.8 / 1169.8 26.7 / 26.7
Output Total 2410 / 2410 1150 / 1150 175 / 175
Balance -1123.5 / -1123.5 19.8 / 19.8 -148.3 / -148.3
SaO2 [CPAP] 96
SaO2 [SIMV] 100
SaO2 [A/C] 97
SaO2 96
Nasal Cannula flow liters per 3
minute
Physical Exam
General: Comfortable
HEENT: Normocephalic
Cardiovascular: S1-S2, Regular Rhythm and Murmur (n)
Respiratory: Clear, Wheeze (n), Crackles (Mild at right base), Rhonchi (n), Non-Labored Respirations and Stridor (n)
GI: Soft, Non Distended and Non Tender
Neurology: Awake, Alert and No Motor Deficits (Moves all extremities)
Skin: Cyanosis (n) and Jaundice (n)
Labs/Micro/Reports
Lab Data
05/26/25 05:09
05/26/25 05:09
[2025-05-26 08:03] LABS: B.E. - POC 3.9 mmol/L; Glucose - POC 115 mg/dl (70-99); HCO3 - POC 30 mmol/L (21-28); Hematocrit - POC 25 % PCV (42-52); Hemodilution- POC Yes; Hemoglobin Calculated - POC 8.4; Ionized Calcium - POC 1.08 mmol/L (1.15-1.33); Lactate - POC < 0.30 mmol/L (0.36-0.75); O2 Saturation %Calculated-POC 100.0 % (94-98); PCO2 - POC 50 mmHg (35-48); PO2 - POC 388 mmHg (83-108); POC Comment CPB; Potassium - POC 4.4 mmol/L (3.5-5.1); Sodium - POC 140 mmol/L (136-145); Specimen Type - POC Arterial; pH - POC 7.38 (7.35-7.45)
[2025-05-26 08:03] LABS: B.E. - POC 2.7 mmol/L; Glucose - POC 96 mg/dl (70-99); HCO3 - POC 27 mmol/L (21-28); Hematocrit - POC 27 % PCV (42-52); Hemodilution- POC No; Hemoglobin Calculated - POC 9.2; Ionized Calcium - POC 1.20 mmol/L (1.15-1.33); Lactate - POC < 0.30 mmol/L (0.36-0.75); O2 Saturation %Calculated-POC 100.0 % (94-98); PCO2 - POC 37 mmHg (35-48); PO2 - POC 432 mmHg (83-108); POC Comment PRE; Potassium - POC 3.6 mmol/L (3.5-5.1); Sodium - POC 140 mmol/L (136-145); Specimen Type - POC Arterial; pH - POC 7.46 (7.35-7.45)
[2025-05-26] MEDS: NEURONTIN 100 MG PO ×3 (08:50→21:49)
[2025-05-26] MEDS: LOPRESSOR 25 MG PO ×2 (08:50→20:07)
[2025-05-26] MEDS: LOW STRENGTH ASPIRIN 81 MG PO (08:50)
[2025-05-26] MEDS: PLAVIX 75 MG PO (08:50)
[2025-05-26] MEDS: NSS (PRESERVATIVE FREE) 10 ML IV ×2 (08:51→20:55)
[2025-05-26] MEDS: VITAMIN C 500 MG PO (08:51)
[2025-05-26] MEDS: SENOKOT-S 1 TABLET PO ×2 (08:51→20:07)
[2025-05-26] MEDS: LASIX 40 MG IV (08:51)
[2025-05-26] MEDS: PROTONIX IV 40 MG IV ×2 (08:51→20:07)
[2025-05-26] MEDS: PACERONE 200 MG PO ×3 (08:51→21:50)
[2025-05-26] MEDS: MAGNESIUM OXIDE 500 MG PO ×2 (08:51→20:07)
[2025-05-26] MEDS: BACTROBAN 2% OINTMENT 1 APPLIC NASAL ×2 (08:52→20:54)
--- NOTE | 2025-05-26 09:00 | PTCARENOTE ---
Patient received from assembly inspector helper resting oob in chair, AAO X 3, states pain controlled at this time. NSR via cm, SaO2 @ 97% on 3lnc. RIJ Cordis w/amiodarone infusing per protocol. Epicardial A+V pacing wires insulated to chest wall. All procedural
sites stable. Patient exhibited harsh, non-productive cough, cough suppressant administered. Patient updated to plan of care for the day, in agreement. See work list for full assessment and interventions performed.
[2025-05-26] MEDS: DIOVAN 40 MG PO (10:07)
[2025-05-26] MEDS: TESSALON PERLES 200 MG PO ×2 (10:07→17:56)
--- NOTE | 2025-05-26 10:32 | W.PN.CARDCBS ---
Today's Communication / Plan
-
Stable cardiology status status post CABG
Impression / Plan
-
Primary Nipple Maker: Dr. Edwards of [facility] in [place], [place],
Assessment:
Status post CABG with BALLARD to LAD, vein graft to ramus sequential to OM, vein graft to right PDA), AVR number 27 mm bioprosthetic on 05/23/2025
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
CAD s/p RCA PCI with bare-metal stents x2 1996
Inferior [place] 1996
History of gastric ulcer ~15 years ago
Severe
HTN
HLD
ECHO 05/21/25: Severe peak/mean 81/52 mmHg, GUADALUPE 0.8 cm�, LVEF 65%, normal RV size and function, no AI, mild MR
Catheterization 05/22/2025:
CONCLUSIONS
1. Significant multivessel coronary artery disease.
2. Known severe aortic stenosis by most recent echocardiogram this admission.
Plan:
Stable cardiology status status post CABG
Remains in sinus rhythm
discussed with CT surgery
Progress Note - Nipple Maker
Subjective
Date of Service: May 26, 2025
No chest pain or shortness of breath
Objective
Labs:
05/26/25 05:09
05/26/25 05:09
Labs
Hgb 8.3 g/dL (13.0-18.0) L 05/26/25 05:09
Hct 24.9 % (39.0-52.0) L 05/26/25 05:09
Plt Count 145 10^3/uL (130-400) 05/26/25 05:09
PT 15.8 Sec (11.4-14.6) H 05/24/25 04:12
INR 1.23 05/24/25 04:12
APTT 31.7 Sec (23.4-35.0) 05/23/25 19:16
Sodium 133 mmol/L (135-145) L 05/26/25 05:09
Potassium 3.7 mmol/L (3.5-5.1) 05/26/25 05:09
BUN 19 mg/dl (9-20) 05/26/25 05:09
Creatinine 0.9 mg/dL (0.7-1.3) 05/26/25 05:09
Glucose 111 mg/dl (70-99) H 05/26/25 05:09
Vital Signs and I&O:
Vital Signs
Temp Pulse Resp BP Pulse Ox
97.7 F 76 16 122/53 97
05/26/25 08:00 05/26/25 10:07 05/26/25 08:00 05/26/25 10:07 05/26/25 08:10
Vital Signs
Temp Pulse Resp BP Pulse Ox
97.7 F 76 16 122/53 97
05/26/25 08:00 05/26/25 10:07 05/26/25 08:00 05/26/25 10:07 05/26/25 08:10
Intake & Output
05/24/25 05/25/25 05/26/25 05/27/25
06:59 06:59 06:59 06:59
Intake Total 1060.0 / 1128.6 1286.5 / 1286.5 1169.8 / 1169.8 560.1 / 560.1
Output Total 1135 / 1170 2410 / 2410 1150 / 1150 925 / 925
Balance -75.0 / -41.4 -1123.5 / -1123.5 19.8 / 19.8 -364.9 / -364.9
Physical Exam
Physical Exam
General: Well developed, well nourished in NAD.
Neck: Supple, no JVD, HJR, carotids +2 B/L, no bruits bilaterally.
Heart: Non displaced PMI, RRR, no murmurs, No S3, S4, no rubs.
Lungs: Scattered rhonchi
Sternal dressings noted
Extremities: No clubbing, cyanosis or edema bilaterally.
Neuro: Grossly nonfocal, awake, alert and oriented x3.
[2025-05-26] MEDS: DUONEB INH ×2 (11:15→15:15)
--- NOTE | 2025-05-26 11:38 | PTCARENOTE ---
VS obtained, assessment stable. Patient oob in chair, lunch ordered. Patient states breathing feels a bit better. at bedside.
--- NOTE | 2025-05-26 13:44 | PN.CDI ---
CDI
- -
CDI:
Physician Documentation Request
Admit Date: 05/21/25 10:[address] Surgery,
05/26 CT Surgery Report: 'Intraop Pulmonary artery perforation likely from swan S/P 2 {5pk} plts, coil embolization'
Please clarify the following:
Pulmonary artery perforation is a complication of the surgery
Pulmonary artery perforation is unexpected but is NOT a complication of the surgery
Pulmonary artery perforation is an expected occurrence and is not a complication of surgery
Pulmonary artery perforation is inherent to/unavoidable during the surgery and is not a complication
Other
Use of terms such as suspected, likely, concern for, or probable (associated with a specific diagnosis that is being evaluated, monitored, or treated as if it exists) are acceptable and can be coded in the inpatient setting, when documented at the
time of discharge.
Thank you,
Josefa Bentley RN, BSN
CDI Specialist
Available via [facility] text
Please use your independent medical judgment in providing your response.
[2025-05-26] MEDS: FERRLECIT 110 MG IV (13:58)
[2025-05-26] MEDS: NSS IV (16:04)
--- NOTE | 2025-05-26 20:00 | PTCARENOTE ---
Assumed care of patient at 1900. Patient OOB in chair, alert and oriented, working on his computer. Follows all commands. pulses were palitable, stong in radials, BP stable 120's/60's and in NSR. Trace edema in lower extermities. on 2 L NC,
using IS Lungs course and diminished. Voiding with urinals. Denies pain except when coughing.
[2025-05-26] MEDS: REMOVE LIDOCAINE PATCH 1 PATCH REMOVE (20:55)
[2025-05-26] MEDS: EFFEXOR XR 150 MG PO (21:50)
[2025-05-26] MEDS: PRAVACHOL 40 MG PO (21:50)
[2025-05-27] VITALS (10 sets, daily range): BP systolic 109–144; BP diastolic 50–64; PULSE 78; O2SAT 94; BMI 29.9
[2025-05-27] MEDS: UNASYN IV ×5 (00:10→23:16)
[2025-05-27] MEDS: ROBITUSSIN DM 5 ML PO (00:28)
[2025-05-27] MEDS: TESSALON PERLES 200 MG PO ×3 (00:28→19:42)
[2025-05-27 03:23] LABS: Hematocrit 24.4 % (39.0-52.0); Hemoglobin 8.0 g/dL (13.0-18.0); Mean Corp Hgb Conc. 32.8 g/dL (33.0-37.0); Mean Corpuscular Volume 85.6 fL (80.0-94.0); Platelet Count 175 10^3/uL (130-400); Red Cell Dist. Width 15.4 % (11.5-14.5)
--- NOTE | 2025-05-27 03:41 | W.PN.CT ---
Today's Communication / Plan
-
Plan:
-No major issues overnight. Hemodynamically and neurologically intact
-No further a-fib since the 4hrs on POD#3, completed course of Amiodarone gtt, on PO amiodarone and Lopressor
-Consider d/c of Cordis
-Underwent bronchoscopy with evacuation of clots, no active bleeding, on 05/24/25
-Empiric antibiotics added by Pulm, Unasyn x 5 days course
-On BID PPI, will undergo EGD/Colonoscopy as an outpatient, Hx of GI bleed/PUD
-Will likely cut temporary PW today
-F/U 2-view cxr
-Encourage use of IS/Pulmonary toilet, DuoNeb nebulizer/Pulmicort, chest PT tx added
-OOB into chair/Ambulate
-Home later today vs tomorrow
Assessment / Plan
-
Assessment:
-S/P Status did not with aortic and right atrial cannulation/ Surgical aortic valve replacement (27 mm bioprosthetic)/Coronary artery bypass grafting x 4 (In situ BALLARD to LAD, Ao to RSVG to ramus sequential to OM, Ao to RSVG to RPDA)/Endoscopic vein
harvesting of the right lower extremity/Left atrial appendage exclusion [35 mm device]/Bronchoscopy with clearing of airway, by Dr. Lubin, 05/23/25, pod#4
-Procedure complicated by massive hemoptysis/airway hemorrhage from PA swallowing perforation s/p intraop bronchoscopy, and subsequent coil embolization and hemostasis by Dr. Black, 05/23/25
-Severe aortic valve stenosis, symptomatic
-LVEF 60% per [facility]
-Multivessel coronary artery disease
-NSTEMI
-History of previous PCI for MIs
-History of GI bleeding/PUD
-Hyperlipidemia
-Hypertension
-Acute postop blood loss/Anemia on preop/chronic anemia (transfused 1u PRBC preop and 4u intraop)
-Intraop Pulmonary artery perforation likely from swan S/P 2 {5pk} plts, coil embolization.
Pulmonary artery perforation is a complication of the surgery
-Acute postop VDRF
-Acute postop pulmonary insufficiency
-Acute postop hypovolemia with subsequent hypervolemia
-Acute postop bronchoscopy 05/24/25 with evacuation of clots, no active bleeding
-Acute postop SVT and A-fib
-Acute postop hyponatremia
Discussed patient care with: Cardiology, Nursing, Respiratory Therapy, Pharmacy and Care Team
Subjective
Procedure
-S/P Status did not with aortic and right atrial cannulation/ Surgical aortic valve replacement (27 mm bioprosthetic)/Coronary artery bypass grafting x 4 (In situ BALLARD to LAD, Ao to RSVG to ramus sequential to OM, Ao to RSVG to RPDA)/Endoscopic vein
harvesting of the right lower extremity/Left atrial appendage exclusion [35 mm device]/Bronchoscopy with clearing of airway, by Dr. Lubin, 05/23/25
-Procedure complicated by massive hemoptysis/airway hemorrhage from PA swallowing perforation s/p intraop bronchoscopy and subsequent coil embolization and hemostasis by Dr. Black, 05/23/25
-
Date of Service: May 27, 2025
Pt c/o mild incisional pain and cough, otherwise feels well
Objective Data
-
Lab Results
05/27/25 03:00
PT 15.8 Sec (11.4-14.6) H 05/24/25 04:12
INR 1.23 05/24/25 04:12
APTT 31.7 Sec (23.4-35.0) 05/23/25 19:16
Vital Signs
Vital Signs
Temp Pulse Resp BP Pulse Ox
98.3 F 75 18 127/61 96
05/26/25 15:53 05/27/25 01:45 05/26/25 22:00 05/27/25 00:31 05/26/25 23:35
CT Intake/Output/Weight
05/26/25 05/26/25 05/27/25
06:59 18:59 06:59
Intake Total 669.8 / 1169.8 1280.1 / 2180.3 900.2 / 2180.3
Output Total 450 / 1150 1825 / 2725 900 / 2725
Balance 219.8 / 19.8 -544.9 / -544.7 0.2 / -544.7
SaO2: 96 (RA)
Physical Exam
-
General: Awake, Oriented and AOx3
Cardiovascular: Regular rate & rhythm, No Murmurs, No Rub and No Gallop
Respiratory: Decreased Breath Sounds (coarse on right, otherwise clear )
Sternum: Stable
Incision: Clean, Dry, Intact and Dressing Intact
Extremities: Other (+trace edema)
Data Reviewed
-
Lab Results: Results Reviewed
Medications: Active Meds Reviewed
Chest X-Ray: Report Reviewed and Image Reviewed
ECG: Report Reviewed and Image Reviewed
[2025-05-27] MEDS: HYCODAN SYRUP 5 ML PO ×3 (03:42→21:30)
[2025-05-27 03:47] LABS: Blood Urea Nitrogen 17 mg/dl (9-20); Calcium 8.4 mg/dl (8.4-10.2); Carbon Dioxide 29 mmol/L (22-30); Chloride 103 mmol/L (98-107); Estimated Creatinine Clearance 63 ml/min; Glucose 97 mg/dl (70-99); Magnesium 2.1 mg/dl (1.6-2.3); Potassium 4.1 mmol/L (3.5-5.1); Sodium 135 mmol/L (135-145); eGFR > 60.00
--- NOTE | 2025-05-27 03:47 | PTCARENOTE ---
patient continues to have coughing episodes. Strong harsh cough that is non productive. Lungs sound course on Left more then right Wheezing heard bilaterally. PRN med given
[2025-05-27] MEDS: TYLENOL 1000 MG PO ×3 (06:14→21:29)
--- NOTE | 2025-05-27 07:08 | PTCARENOTE ---
Vital signs captured for previous shift via [employer] monitor.
[2025-05-27] MEDS: DUONEB 3 ML INH ×2 (07:18→19:24)
[2025-05-27] MEDS: PULMICORT 0.5 MG INH ×2 (07:18→19:24)
--- NOTE | 2025-05-27 07:37 | W.PN.PUL3 ---
Today's Communication / Plan
-
Continue with airway clearance measures
Doubt he will require nebulized therapy at time of discharge
Consider chest x-ray in 4 weeks
Pulmonary follow-up information left in chart in the event symptoms persist
Patient transferred to telemetry. We will sign off. Please call with questions
Assessment
-
Patient is a 74-year-old pleasant male w/ h/o HTN presented to ER with chest pain, lightheadedness, left arm numbness, SOB. Admitted on 05/21/25 with rule in for NSTEMI, on w/u also has severe . Underwent LHC on 05/22/25 with significant
multivessel coronary artery disease, confirmed severe . CTS planning for CAB and AVR on 05/23/25. Intraoperatively, noted to have endobronchial bleeding suspicious for possible PA rupture vs endobronchial tears. He is in OR, intubated with double
lumen ETT. Bronchoscopy performed emergently in OR but cannot locate specific site of bleeding. Clots are noted throughout omar and bilateral main stems for poor visualization. Epi delivered into lungs x 3. Saturations notable are 100% on vent,
ABG with pH 6.9, PCO2 >100. He is closed and will be heading to laboratory helper. We are consulted for evaluation.
Severe s/p AVR 05/23/25
MV CAD s/p CAB 05/23/25
Endobronchial bleeding, pulmonary artery injury with endobronchial bleeding
Intubated on MV with double lumen tube
NSTEMI rule/in
Acute hypoxic and hypercarbic respiratory failure
Severe respiratory acidosis
GIB
ABLA
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
RCA PCI in 1996
Known aortic stenosis with last echo in 2021
Gastric ulcer 15 years ago
Hypertension
Hyperlipidemia
Plan/recommendations
Hemoptysis, in the setting of pulmonary artery injury. S/p coiling of the bleeding artery, no further hemoptysis
Status post bronchoscopy 05/24, clearing of blood clots, no active bleeding noted
Patient extubated successfully on 05/24. Saturation 95% on Room air today. No cough or hemoptysis noted.
- Incentive spirometry, RLL atelectasis noted on CXR, increase activity as tolerated. Mucinex and Duoneb continued.
- Empiric antibiotics, ampicillin/sulbactam for 5 days
- Per my review, chest x-ray with continued improvement of right basilar atelectasis as of 05/27. Likely areas of mucous plugging, atelectasis noted
- Consider follow-up chest x-ray in 4 weeks or sooner as indicated
s/p CAB/AVR POD #3
Titrated off pressors per protocol
ECHO reviewed with normal function
Management of chest tubes per primary service
CXR with stable moderate opacification of right lower lung field consistent with endobronchial bleeding.
No prior history of pulmonary disease
No prior PFTs for review
Continue with DuoNebs 4 times daily, budesonide twice a day. Not sure he will need this at time of discharge
Aspiration precautions
Encouraged incentive spirometry, OOB/ambulation/early mobility
Advance diet as tolerated following extubation
GI prophylaxis
Monitor critical I/O's
Galeas/chest tube output
DVT prophylaxis including SCDs
Patient transferred to telemetry
Pulmonary follow-up left in chart if symptoms persist after discharge
We will sign off. Please call with questions
Diagnostic Data
CXR 05/23/25- No acute radiographic abnormality in the chest
CTA 05/23/25- 1. No thoracic aortic aneurysm or dissection. No pulmonary embolism.
2. No significant acute abnormality identified in the chest, as described above.
3. Moderate coronary artery calcifications.
4. Tiny 4 mm left lower lobe pulmonary nodule, likely benign. If the patient is considered high risk, an optional follow-up noncontrast CT chest can be obtained in 12 months.
ECHO 05/21/25: Severe peak/mean 81/52 mmHg, GUADALUPE 0.8 cm�, LVEF 65%, normal RV size and function, no AI, mild MR
ECG: Sinus rhythm, inferolateral ST segment depression consistent with injury, increased over May 21
Hemoglobin 8.3 BUN and creatinine 19 and 0.8 troponin 2.09, had been 0.1, proBNP is 41
Subjective Data
-
Date of Service:
Date of Service: May 27, 2025
Subjective:
Patient continues to improve. Less cough, less shortness of breath. Nonproductive, denies coughing up blood.
Objective Data
Data Reviewed
Vital Signs / I&O / Oxygen:
Vital Signs
Temp Pulse Resp BP Pulse Ox
97.8 F 77 17 127/61 96
05/27/25 04:01 05/27/25 07:22 05/27/25 07:22 05/27/25 00:31 05/27/25 07:22
Intake and Output
05/26/25 05/27/25 05/28/25
06:59 06:59 06:59
Intake Total 1169.8 / 1169.8 2180.3 / 2380.3 200 / 200
Output Total 1150 / 1150 2725 / 3125 400 / 400
Balance 19.8 / 19.8 -544.7 / -744.7 -200 / -200
SaO2 [CPAP] 96
SaO2 [SIMV] 100
SaO2 [A/C] 97
SaO2 96
Nasal Cannula flow liters per 2
minute
Physical Exam
General: Comfortable
HEENT: Normocephalic
Cardiovascular: S1-S2, Regular Rhythm and Murmur (n)
Respiratory: Clear, Wheeze (n), Crackles (Mild at right base), Rhonchi (n), Non-Labored Respirations, Stridor (n) and Egophony (n)
GI: Soft, Non Distended and Non Tender
Neurology: Awake, Alert and No Motor Deficits (Moves all extremities)
Skin: Cyanosis (n) and Jaundice (n)
Labs/Micro/Reports
Lab Data
05/27/25 03:00
05/27/25 03:00
[2025-05-27] MEDS: BACTROBAN 2% OINTMENT 1 APPLIC NASAL (08:45)
[2025-05-27] MEDS: PROTONIX IV 40 MG IV ×2 (08:45→19:43)
[2025-05-27] MEDS: PACERONE 200 MG PO ×3 (08:46→21:29)
[2025-05-27] MEDS: NEURONTIN 100 MG PO ×3 (08:46→21:29)
[2025-05-27] MEDS: MAGNESIUM OXIDE 500 MG PO (08:46)
[2025-05-27] MEDS: NSS (PRESERVATIVE FREE) 10 ML IV ×2 (08:46→19:36)
[2025-05-27] MEDS: FEOSOL 325 MG PO (08:46)
[2025-05-27] MEDS: LOW STRENGTH ASPIRIN 81 MG PO (08:46)
[2025-05-27] MEDS: PLAVIX 75 MG PO (08:46)
[2025-05-27] MEDS: LOPRESSOR 25 MG PO (08:46)
[2025-05-27] MEDS: LASIX 40 MG IV ×2 (08:46→15:42)
[2025-05-27] MEDS: VITAMIN C 500 MG PO (08:46)
[2025-05-27] MEDS: SENOKOT-S 1 TABLET PO (08:46)
--- NOTE | 2025-05-27 09:00 | PTCARENOTE ---
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 NSR via cm, SaO2 @ 95% on RA. RIJ Cordis w/kvo infusing. Epicardial A+V pacing wires, insulated to chest wall. All procedural sites stable. Patient
updated to plan of care for the day, in agreement. See work list for full assessment and interventions performed.
--- NOTE | 2025-05-27 09:56 | W.PN.CARDCBS ---
Today's Communication / Plan
-
Supportive postoperative care
Continue IV Lasix.
Impression / Plan
-
Primary Cross Country/Track And Field Coach: Dr. Edwards of [facility] in [place], [place],
Assessment:
Status post CABG with BALLARD to LAD, vein graft to ramus sequential to OM, vein graft to right PDA), AVR number 27 mm bioprosthetic on 05/23/2025
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
CAD s/p RCA PCI with bare-metal stents x2 1996
Inferior DE 1996
History of gastric ulcer ~15 years ago
Severe
HTN
HLD
ECHO 05/21/25: Severe peak/mean 81/52 mmHg, GUADALUPE 0.8 cm�, LVEF 65%, normal RV size and function, no AI, mild MR
Catheterization 05/22/2025:
CONCLUSIONS
1. Significant multivessel coronary artery disease.
2. Known severe aortic stenosis by most recent echocardiogram this admission.
Plan:
Surgical aortic valve replacement (27 mm bioprosthetic)/Coronary artery bypass grafting x 4 (In situ BALLARD to LAD, Ao to RSVG to ramus sequential to OM, Ao to RSVG to RPDA)/Endoscopic vein harvesting of the right lower extremity/Left atrial appendage
exclusion [35 mm device]/Bronchoscopy with clearing of airway, by Dr. Lubin, 05/23/25, pod#4. Procedure complicated by massive hemoptysis/airway hemorrhage from PA swallowing perforation s/p intraop bronchoscopy, and subsequent coil embolization and
hemostasis by Dr. Black, 05/23/25. Status post bronchoscopy with actuation of clots 05/24
Hemodynamically stable
Maintaining sinus rhythm with brief postop atrial fibrillation on day 3. Continue oral amiodarone and Lopressor
Respiratory status stable on room air however continues to report cough on empiric antibiotics. Chest x-ray this morning with CT surgery and pulmonary following.
Would continue IV Lasix
Labs today: Sodium 135, potassium 4.1. BUN/creatinine 17/1. Magnesium 2.1.
History of GI bleed with plan for outpatient EGD/colonoscopy-slow downward trend of hemoglobin today 8. Continue PPI and monitor.
Cardiac rehab consulted�continue PT efforts
Progress Note - Cross Country/Track And Field Coach
Subjective
Date of Service: May 27, 2025
Seen and examined. Out of bed to chair about to work with cardiac rehab. No chest pain or pressure. No dizziness or lightheadedness. Voiding well. Flatus but no BM as of yet. Patient complains of forceful persistent cough with minimal sputum
production. No fevers
Objective
Labs:
05/27/25 03:00
05/27/25 03:00
Labs
Hgb 8.0 g/dL (13.0-18.0) L 05/27/25 03:00
Hct 24.4 % (39.0-52.0) L 05/27/25 03:00
Plt Count 175 10^3/uL (130-400) D 05/27/25 03:00
PT 15.8 Sec (11.4-14.6) H 05/24/25 04:12
INR 1.23 05/24/25 04:12
APTT 31.7 Sec (23.4-35.0) 05/23/25 19:16
Sodium 135 mmol/L (135-145) 05/27/25 03:00
Potassium 4.1 mmol/L (3.5-5.1) 05/27/25 03:00
BUN 17 mg/dl (9-20) 05/27/25 03:00
Creatinine 1.0 mg/dL (0.7-1.3) 05/27/25 03:00
Glucose 97 mg/dl (70-99) 05/27/25 03:00
Vital Signs and I&O:
Vital Signs
Temp Pulse Resp BP Pulse Ox
98.3 F 80 18 126/62 95
05/27/25 08:00 05/27/25 09:15 05/27/25 08:00 05/27/25 08:46 05/27/25 09:13
Vital Signs
Temp Pulse Resp BP Pulse Ox
98.3 F 80 18 126/62 95
05/27/25 08:00 05/27/25 09:15 05/27/25 08:00 05/27/25 08:46 05/27/25 09:13
Intake & Output
05/25/25 05/26/25 05/27/25 05/28/25
06:59 06:59 06:59 06:59
Intake Total 1286.5 / 1286.5 1169.8 / 1169.8 2180.3 / 2380.3 470 / 470
Output Total 2410 / 2410 1150 / 1150 2725 / 3125 875 / 875
Balance -1123.5 / -1123.5 19.8 / 19.8 -544.7 / -744.7 -405 / -405
Physical Exam
Physical Exam
General: Out of bed to chair. Room air
Heart: Regular. Positive S1-S2. No murmur. Surgical dressings in place
Lungs: Bronchovesicular breath sounds decreased at the bases left greater than right with coarse rhonchi. Fine bibasilar crackles. No wheezes
Extremities: No edema
Neuro: Grossly nonfocal, awake, alert and oriented x3.
[2025-05-27] MEDS: DIOVAN 40 MG PO (10:06)
--- NOTE | 2025-05-27 12:05 | PTCARENOTE ---
VS obtained, assessment stable. Patient assisted to bathroom, self care performed. Denies pain.
[2025-05-27] MEDS: NSS IV (15:46)
--- NOTE | 2025-05-27 16:00 | PTCARENOTE ---
VS obtained, assessment unchanged. Patient resting oob, denies pain. Medicated for cough.
[2025-05-27] MEDS: LOPRESSOR 50 MG PO (19:37)
[2025-05-27] MEDS: MAGNESIUM OXIDE 400 MG PO (19:37)
[2025-05-27] MEDS: REMOVE LIDOCAINE PATCH 1 PATCH REMOVE (19:44)
[2025-05-27] MEDS: SENOKOT-S PO (19:45)
--- NOTE | 2025-05-27 20:40 | PTCARENOTE ---
assumed care of patient at 1900. Patient alert and oriented, OOB to chair ambulating in room and nur. Good bilateral strength, NSR BP stable, +Pulses, trace edema. Resp- on Room air, WONG, Harsh cough, neb treatment done, Voiding in bathroom,
denies pain until coughing. PIV L A/C patent, +BS, tolerating PO intake. BM loose stool.
[2025-05-27] MEDS: EFFEXOR XR 150 MG PO (21:28)
[2025-05-27] MEDS: PRAVACHOL 40 MG PO (21:30)
--- NOTE | 2025-05-27 22:09 | PTCARENOTE ---
yary was concerned with cough fits and chest tightness when coughing, could not catch breath when coughing. Neb treatment was given at 1930 and patient was encouraged to use IS, he stated he felt better after using and was easier to breathe.
Hot tea given also, night medications given denies pain. yary stated he wash up himself when offered bath
[2025-05-28] VITALS (13 sets, daily range): BP systolic 95–145; BP diastolic 52–70; PULSE 66–67; O2SAT 97; BMI 29.1
--- NOTE | 2025-05-28 03:37 | W.PN.CT ---
Today's Communication / Plan
-
Plan:
-No major issues overnight. Hemodynamically and neurologically intact
-No further a-fib since the 4hrs on POD#3, completed course of Amiodarone gtt, on PO amiodarone and Lopressor
-Underwent bronchoscopy with evacuation of clots, no active bleeding, on 05/24/25
-Empiric antibiotics added by Sana Herndon x 5 days course. To be completed today
-On BID PPI, will undergo EGD/Colonoscopy as an outpatient, Hx of GI bleed/PUD
-H/H 7.8/23.6, likely hemodilutional, wt up 11 lbs based on yesterday's wt, check wt today
-Will likely cut temporary PW today
-F/U 2-view cxr
-Encourage use of IS/Pulmonary toilet, DuoNeb nebulizer/Pulmicort, chest PT tx added
-Consider steroids for ongoing cough
-OOB into chair/Ambulate
-Home likely tomorrow after completion of Unasyn
Assessment / Plan
-
Assessment:
-S/P Status did not with aortic and right atrial cannulation/ Surgical aortic valve replacement (27 mm bioprosthetic)/Coronary artery bypass grafting x 4 (In situ BALLARD to LAD, Ao to RSVG to ramus sequential to OM, Ao to RSVG to RPDA)/Endoscopic vein
harvesting of the right lower extremity/Left atrial appendage exclusion [35 mm device]/Bronchoscopy with clearing of airway, by Dr. Lubin, 05/23/25, pod#5
-Procedure complicated by massive hemoptysis/airway hemorrhage from PA swallowing perforation s/p intraop bronchoscopy, and subsequent coil embolization and hemostasis by Dr. Black, 05/23/25
-Severe aortic valve stenosis, symptomatic
-LVEF 60% per [place]
-Multivessel coronary artery disease
-NSTEMI
-History of previous PCI for MIs
-History of GI bleeding/PUD
-Hyperlipidemia
-Hypertension
-Acute postop blood loss/Anemia on preop/chronic anemia (transfused 1u PRBC preop and 4u intraop)
-Intraop Pulmonary artery perforation likely from swan S/P 2 {5pk} plts, coil embolization.
Pulmonary artery perforation is a complication of the surgery
-Acute postop VDRF
-Acute postop pulmonary insufficiency
-Acute postop hypovolemia with subsequent hypervolemia
-Acute postop bronchoscopy 05/24/25 with evacuation of clots, no active bleeding
-Acute postop SVT and A-fib
-Acute postop hyponatremia
Discussed patient care with: Cardiology, Nursing, Respiratory Therapy, Pharmacy and Care Team
Subjective
Procedure
-S/P Status did not with aortic and right atrial cannulation/ Surgical aortic valve replacement (27 mm bioprosthetic)/Coronary artery bypass grafting x 4 (In situ BALLARD to LAD, Ao to RSVG to ramus sequential to OM, Ao to RSVG to RPDA)/Endoscopic vein
harvesting of the right lower extremity/Left atrial appendage exclusion [35 mm device]/Bronchoscopy with clearing of airway, by Dr. Lubin, 05/23/25
-Procedure complicated by massive hemoptysis/airway hemorrhage from PA swallowing perforation s/p intraop bronchoscopy and subsequent coil embolization and hemostasis by Dr. Black, 05/23/25
-
Date of Service: May 28, 2025
Pt c/o cough and sudden onset of SOB after ambulation
Objective Data
-
PT 15.8 Sec (11.4-14.6) H 05/24/25 04:12
INR 1.23 05/24/25 04:12
APTT 31.7 Sec (23.4-35.0) 05/23/25 19:16
Vital Signs
Vital Signs
Temp Pulse Resp BP Pulse Ox
99.1 F 74 18 134/60 94
05/27/25 23:22 05/27/25 23:22 05/27/25 23:22 05/27/25 23:22 05/27/25 23:22
CT Intake/Output/Weight
05/27/25 05/27/25 05/28/25
06:59 18:59 06:59
Intake Total 900.2 / 2380.3 730 / 1140 410 / 1140
Output Total 900 / 3125 1275 / 1275
Balance 0.2 / -744.7 -545 / -135 410 / -135
SaO2: 94 (RA)
Physical Exam
-
General: Awake, Oriented and AOx3
Cardiovascular: Regular rate & rhythm, No Murmurs, No Rub and No Gallop
Respiratory: Decreased Breath Sounds (on right, coarse at base)
Sternum: Stable
Incision: Clean, Dry and Intact
Extremities: Other (+trace)
Data Reviewed
-
Lab Results: Results Reviewed
Medications: Active Meds Reviewed
Chest X-Ray: Report Reviewed and Image Reviewed
ECG: Report Reviewed and Image Reviewed
[2025-05-28 03:47] LABS: Blood Urea Nitrogen 19 mg/dl (9-20); Calcium 8.4 mg/dl (8.4-10.2); Carbon Dioxide 29 mmol/L (22-30); Chloride 102 mmol/L (98-107); Estimated Creatinine Clearance 70 ml/min; Glucose 108 mg/dl (70-99); Hematocrit 23.6 % (39.0-52.0); Hemoglobin 7.8 g/dL (13.0-18.0); Magnesium 2.0 mg/dl (1.6-2.3); Mean Corp Hgb Conc. 33.1 g/dL (33.0-37.0); Mean Corpuscular Volume 84.9 fL (80.0-94.0); Platelet Count 229 10^3/uL (130-400); Potassium 3.5 mmol/L (3.5-5.1); Red Cell Dist. Width 15.0 % (11.5-14.5); Sodium 134 mmol/L (135-145); eGFR > 60.00
[2025-05-28] MEDS: LASIX 40 MG IV ×2 (04:36→16:24)
[2025-05-28] MEDS: KCL 40 MEQ PO (04:37)
[2025-05-28] MEDS: TYLENOL 1000 MG PO ×3 (05:49→21:40)
[2025-05-28] MEDS: UNASYN IV ×4 (06:20→23:20)
--- NOTE | 2025-05-28 06:28 | PTCARENOTE ---
Labs drawan, 40 Laxis given IV
[2025-05-28] MEDS: PULMICORT 0.5 MG INH (07:54)
[2025-05-28] MEDS: DUONEB 3 ML INH (07:54)
--- NOTE | 2025-05-28 08:17 | PTCARENOTE ---
Received pt from night supervisor RN; pt AAOx3 and resting comfortably in chair; NSR on monitor and VSS; Epicardial A/V wires insulated; PIV x1 patent; Lungs diminished and coarse; IS to 1200 and dyspneic on excretion; positive bowel sounds; pt voiding
clear yellow urine; palpable pulses throughout; +1 lower extremity edema noted; all surgical sites C/D/I; see nursing documentation for further details.
[2025-05-28] MEDS: PLAVIX 75 MG PO (08:40)
[2025-05-28] MEDS: LOW STRENGTH ASPIRIN 81 MG PO (08:41)
[2025-05-28] MEDS: MAGNESIUM OXIDE 400 MG PO ×2 (08:41→20:31)
[2025-05-28] MEDS: NSS (PRESERVATIVE FREE) 10 ML IV ×2 (08:41→20:31)
[2025-05-28] MEDS: SENOKOT-S 1 TABLET PO (08:41)
[2025-05-28] MEDS: FEOSOL 325 MG PO (08:41)
[2025-05-28] MEDS: LASIX IV (08:41)
[2025-05-28] MEDS: VITAMIN C 500 MG PO (08:41)
[2025-05-28] MEDS: PROTONIX IV 40 MG IV ×2 (08:41→20:31)
[2025-05-28] MEDS: NEURONTIN 100 MG PO ×3 (08:41→21:39)
[2025-05-28] MEDS: KCL 20 MEQ PO (08:42)
[2025-05-28] MEDS: DIOVAN 40 MG PO (08:42)
[2025-05-28] MEDS: PACERONE 200 MG PO ×3 (08:43→21:40)
[2025-05-28] MEDS: LOPRESSOR 50 MG PO (08:43)
[2025-05-28] MEDS: PULMICORT 0.25 MG INH (10:22)
--- NOTE | 2025-05-28 11:29 | CM ---
Chart reviewed. Patient is independent of ADLS, lives alone in a 2 STH, 0 LUTHER, 0 DME. Patient with a supportive ex and daughter to help assist after surgery. Plan is for the patient to return home with CT Transitional RN. CM to follow
--- NOTE | 2025-05-28 12:05 | PTCARENOTE ---
Assessment unchanged and pt resting comfortably in chair; NSR on monitor and VSS.
[2025-05-28] MEDS: TESSALON PERLES 200 MG PO ×2 (15:00→20:45)
[2025-05-28] MEDS: ROBITUSSIN DM 5 ML PO ×2 (15:00→20:45)
--- NOTE | 2025-05-28 16:22 | W.PN.INTV ---
Today's Communication / Plan
Recommendations
Cough suppressant 3 times daily as below
Hold off on inhaler/nebulizer for the next 24 hours
Discussed pursed lip breathing, Acapella which may improve/lessen airway irritation
Discussed importance of avoiding 'forceful cough' in hopes of expectorating a plug
Assessment
-
Patient is a 74-year-old pleasant male w/ h/o HTN presented to ER with chest pain, lightheadedness, left arm numbness, SOB. Admitted on 05/21/25 with rule in for NSTEMI, on w/u also has severe . Underwent LHC on 05/22/25 with significant
multivessel coronary artery disease, confirmed severe . CTS planning for CAB and AVR on 05/23/25. Intraoperatively, noted to have endobronchial bleeding suspicious for possible PA rupture vs endobronchial tears. He is in OR, intubated with double
lumen ETT. Bronchoscopy performed emergently in OR but cannot locate specific site of bleeding. Clots are noted throughout omar and bilateral main stems for poor visualization. Epi delivered into lungs x 3. Saturations notable are 100% on vent,
ABG with pH 6.9, PCO2 >100. He is closed and will be heading to blood bank laboratory professional. We are consulted for evaluation.
Severe s/p AVR 05/23/25
MV CAD s/p CAB 05/23/25
Endobronchial bleeding, pulmonary artery injury with endobronchial bleeding
Intubated on MV with double lumen tube
NSTEMI rule/in
Acute hypoxic and hypercarbic respiratory failure
Severe respiratory acidosis
GIB
ABLA
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
RCA PCI in 1996
Known aortic stenosis with last echo in 2021
Gastric ulcer 15 years ago
Hypertension
Hyperlipidemia
Plan
Hemoptysis, in the setting of pulmonary artery injury. S/p coiling of the bleeding artery, no further hemoptysis
Status post bronchoscopy 05/24, clearing of blood clots, no active bleeding noted
CT chest obtained today
Adequate aeration of the lung, interstitial abnormality noted
There may be some secretions and plugs in the 2nd and 3rd generation airway right lower lobe
Extensive discussion regarding pathophysiology of cough
I have reviewed this with him during last visit
Now that we know that lung is open and there is no obvious atelectasis, lets focus on suppressing the cough alongside with IS/Acapella
I suspect that he gets into cough spasms and then works extra hard to expectorate when there is nothing to expectorate and this worsens airway irritation
I also suspect that inhaler, nebulized therapy may be acting more as an irritant as opposed to a true bronchodilator/anti-inflammatory
Lets hold off on inhaler/nebulizer going into tomorrow
Tessalon Perles 200 mg 3 times daily
Robitussin also 3 times daily
Consider Robitussin with codeine at night prior to sleep
Will reassess in a.m.
Explained to patient at length that this will take some time
Worst-case scenario, no improvement in the next 2 to 4 weeks at which time we may need to perform endobronchial exam
For now continue as above
Reviewed with patient and at bedside
Reviewed with CT surgery team
All questions answered
Diagnostic Data
CXR 05/23/25- No acute radiographic abnormality in the chest
CTA 05/23/25- 1. No thoracic aortic aneurysm or dissection. No pulmonary embolism.
2. No significant acute abnormality identified in the chest, as described above.
3. Moderate coronary artery calcifications.
4. Tiny 4 mm left lower lobe pulmonary nodule, likely benign. If the patient is considered high risk, an optional follow-up noncontrast CT chest can be obtained in 12 months.
ECHO 05/21/25: Severe peak/mean 81/52 mmHg, GUADALUPE 0.8 cm�, LVEF 65%, normal RV size and function, no AI, mild MR
ECG: Sinus rhythm, inferolateral ST segment depression consistent with injury, increased over May 21
Hemoglobin 8.3 BUN and creatinine 19 and 0.8 troponin 2.09, had been 0.1, proBNP is 41
Critical Care time 80 mins -- The patient is admitted for acute critical illness for the treatment of vital organ failure and/or prevention of further life-threatening conditions. Total care includes time spent in review of history, physical exam,
medications, hemodynamic/ventilator parameters, laboratory data, imaging and discussion with house staff, pharmacy, respiratory therapy, book mender, and nursing.
Subjective Dataa
Subjective Data
Date of Service:
Date of Service: May 28, 2025
Subjective:
Asked to see patient regarding his cough. He continues to have cough spasms, unable to expectorate. Sitting in chair, comfortable, conversant. at bedside
Objective Data
Data Reviewed
Vital Signs / I&O / Oxygen:
Vital Signs
Temp Pulse Resp BP Pulse Ox
98.1 F 62 20 113/54 95
05/28/25 11:32 05/28/25 11:30 05/28/25 11:32 05/28/25 11:15 05/28/25 11:32
Intake and Output
05/27/25 05/28/25 05/29/25
06:59 06:59 06:59
Intake Total 2180.3 / 2380.3 1390 / 1390 60 / 60
Output Total 2725 / 3125 1775 / 1775 250 / 250
Balance -544.7 / -744.7 -385 / -385 -190 / -190
SaO2 [CPAP] 96
SaO2 [SIMV] 100
SaO2 [A/C] 97
SaO2 95
Nasal Cannula flow liters per 2
minute
Physical Exam
General: Comfortable (Limited exam due to cough spasms)
HEENT: Normocephalic
Respiratory: Wheeze (No audible wheeze) and Non-Labored Respirations
Neurology: Awake, Alert and No Motor Deficits (Moving all extremities)
Labs/Micro/Reports
Lab Data
05/28/25 03:09
05/28/25 03:09
--- NOTE | 2025-05-28 16:47 | W.PN.CARDCBS ---
Addendum entered and electronically signed by Naeem Henderson DO 05/28/25 17:25:
I saw and examined the patient.
The Assurance Analyst's note was reviewed and I agree with the note.
Comment:
Patient seen and examined, resting comfortably in chair. No reported CP, sob, palpitations, or weakness. Notes MACHINE BILLER cough, improved.
Doing well post-operatively. Tele remains sinus, no further AF
Diuresis IV continues with appropriate output and weight loss; ok to transition to oral 24-48h pending evaluation; tentative DC tomorrow
Continue supportive post-op care, pulm therapy
Monitor on telemetry
Addendum entered and electronically signed by Manisha Schmitz PA-C 05/28/25 17:05:
.
Original Note:
Today's Communication / Plan
-
continue post op care
in SR
continue IV diuresis
continue pulm treatment
tentatively for DC in AM
Impression / Plan
-
Primary Is Project Manager: Dr. Edwards of [facility] in [place], [place],
Assessment:
Status post CABG with BALLARD to LAD, vein graft to ramus sequential to OM, vein graft to right PDA), AVR number 27 mm bioprosthetic on 05/23/2025
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
CAD s/p RCA PCI with bare-metal stents x2 1996
Inferior PR 1996
History of gastric ulcer ~15 years ago
Severe
HTN
HLD
ECHO 05/21/25: Severe peak/mean 81/52 mmHg, GUADALUPE 0.8 cm�, LVEF 65%, normal RV size and function, no AI, mild MR
Catheterization 05/22/2025:
CONCLUSIONS
1. Significant multivessel coronary artery disease.
2. Known severe aortic stenosis by most recent echocardiogram this admission.
Plan:
-Surgical aortic valve replacement (27 mm bioprosthetic)/Coronary artery bypass grafting x 4 (In situ BALLARD to LAD, Ao to RSVG to ramus sequential to OM, Ao to RSVG to RPDA)/Endoscopic vein harvesting of the right lower extremity/Left atrial
appendage exclusion [35 mm device]/Bronchoscopy with clearing of airway, by Dr. Lubin, 05/23/25, pod#4. 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
embolization and hemostasis by Dr. Black, 05/23/25. Status post bronchoscopy with actuation of clots 05/24
-doing well from cardiac standpoint
-remains in SR on review of tele with occasional PVCs, however no recurrence of afib. continue po amiodarone and BB
-pulm following for continued respiratory issues. abx course completed. continue IS
-continue diuresis with IV lasix 40mg BID. weight remains up from preop. K repleted
-hgb 7.8, follow, continue on DAPT
-Blood pressure stable. Continue Lopressor 50 mg daily, valsartan 40 mg daily
-Cardiac rehab
-Tentatively plan for DC in a.m.
-Op cardiac follow up arranged
-d/w nursing
-d/w patient and at bedside
Progress Note - Is Project Manager
Subjective
Date of Service: May 28, 2025
No issues from cardiac standpoint. Reports continued cough
Objective
Labs:
05/28/25 03:09
05/28/25 03:09
Labs
Hgb 7.8 g/dL (13.0-18.0) L 05/28/25 03:09
Hct 23.6 % (39.0-52.0) L 05/28/25 03:09
Plt Count 229 10^3/uL (130-400) D 05/28/25 03:09
PT 15.8 Sec (11.4-14.6) H 05/24/25 04:12
INR 1.23 05/24/25 04:12
APTT 31.7 Sec (23.4-35.0) 05/23/25 19:16
Sodium 134 mmol/L (135-145) L 05/28/25 03:09
Potassium 3.5 mmol/L (3.5-5.1) 05/28/25 03:09
BUN 19 mg/dl (9-20) 05/28/25 03:09
Creatinine 1.0 mg/dL (0.7-1.3) 05/28/25 03:09
Glucose 108 mg/dl (70-99) H 05/28/25 03:09
Vital Signs and I&O:
Vital Signs
Temp Pulse Resp BP Pulse Ox
98.1 F 62 20 113/54 95
05/28/25 11:32 05/28/25 11:30 05/28/25 11:32 05/28/25 11:15 05/28/25 11:32
Vital Signs
Temp Pulse Resp BP Pulse Ox
98.1 F 62 20 113/54 95
05/28/25 11:32 05/28/25 11:30 05/28/25 11:32 05/28/25 11:15 05/28/25 11:32
Intake & Output
05/26/25 05/27/25 05/28/25 05/29/25
07:59 07:59 07:59 07:59
Intake Total 1196.5 / 1196.5 2353.6 / 2613.6 1190 / 1190 60 / 60
Output Total 1325 / 1325 2950 / 2950 1375 / 1625 250 / 250
Balance -128.5 / -128.5 -596.4 / -336.4 -185 / -435 -190 / -190
Physical Exam
Physical Exam
GEN: No distress, awake, alert, oriented x3. sitting in chair
HEENT: supple, anicteric, mmm, eomi
LUNGS: CTA B/L, no wheezes
CV: Reg, S1/S2, no murmur
ABD: soft, BS+, NT/ND
EXT: No cyanosis, clubbing. 1+ edema of B/L LE
NEURO: Gross non-focal
SKIN: Warm, pink, dry. No rash. Sternotomy dressing c/d/i
--- NOTE | 2025-05-28 16:51 | PTCARENOTE ---
Assessment unchanged; NSR on monitor and VSS; respiratory medications given see MAR for details; family at bedside and MD in room answering questions.
[2025-05-28] MEDS: NSS IV (17:57)
--- NOTE | 2025-05-28 20:25 | PTCARENOTE ---
Patient received from RN @ 1900. Patient sitting in chair w/ call chawla in reach. AOx3. NSR on monitor. BP 106/61 HR 70. Heart sounds audible. Radial and pedal pulses present. +1 edema noted in bilateral lower extremity. A/V wires insulated.
POX 95% RA. IS 1250. Dry frequent non productive cough noted. Voiding clear yellow urine. Sternal incision dressing dry and intact. CT dressing dry and intact. Right and left groin dressing dry and intact. Right and left leg incisions well
approximated ACLS SPECIALIST. Left PIV patent and intact.
[2025-05-28] MEDS: SENOKOT-S PO (20:32)
[2025-05-28] MEDS: REMOVE LIDOCAINE PATCH REMOVE (20:32)
[2025-05-28] MEDS: LOPRESSOR PO (20:48)
[2025-05-28] MEDS: LOPRESSOR 25 MG PO ×2 (21:39→23:31)
[2025-05-28] MEDS: EFFEXOR XR 150 MG PO (21:40)
[2025-05-28] MEDS: PRAVACHOL 40 MG PO (21:40)
[2025-05-29 04:11] VITALS: BP 122/55
[2025-05-29 04:26] LABS: Hematocrit 26.0 % (39.0-52.0); Hemoglobin 8.6 g/dL (13.0-18.0); Mean Corp Hgb Conc. 33.1 g/dL (33.0-37.0); Mean Corpuscular Volume 87.0 fL (80.0-94.0); Platelet Count 302 10^3/uL (130-400); Red Cell Dist. Width 15.2 % (11.5-14.5)
[2025-05-29 04:43] LABS: Blood Urea Nitrogen 23 mg/dl (9-20); Calcium 8.4 mg/dl (8.4-10.2); Carbon Dioxide 30 mmol/L (22-30); Chloride 101 mmol/L (98-107); Estimated Creatinine Clearance 63 ml/min; Glucose 114 mg/dl (70-99); Potassium 4.0 mmol/L (3.5-5.1); Sodium 135 mmol/L (135-145); eGFR > 60.00
[2025-05-29 06:00] VITALS: BMI 29.2
[2025-05-29] MEDS: UNASYN IV (06:15)
[2025-05-29] MEDS: TYLENOL 1000 MG PO (06:15)
--- NOTE | 2025-05-29 07:17 | W.PN.INTV ---
Today's Communication / Plan
Recommendations
Hold off on inhaler nebulizer
Provide prescription for as needed use, Pulmicort and albuterol
Reviewed again pursed lip breathing, Acapella, ways to minimize airway irritation
Sleep with head of bed elevated
Follow-up chest x-ray in 2 to 4 weeks
Will require pulmonary follow-up in 4 to 6 weeks. Information left in chart
We will sign off. Please call with questions
Assessment
-
Patient is a 74-year-old pleasant male w/ h/o HTN presented to ER with chest pain, lightheadedness, left arm numbness, SOB. Admitted on 05/21/25 with rule in for NSTEMI, on w/u also has severe . Underwent LHC on 05/22/25 with significant
multivessel coronary artery disease, confirmed severe . CTS planning for CAB and AVR on 05/23/25. Intraoperatively, noted to have endobronchial bleeding suspicious for possible PA rupture vs endobronchial tears. He is in OR, intubated with double
lumen ETT. Bronchoscopy performed emergently in OR but cannot locate specific site of bleeding. Clots are noted throughout omar and bilateral main stems for poor visualization. Epi delivered into lungs x 3. Saturations notable are 100% on vent,
ABG with pH 6.9, PCO2 >100. He is closed and will be heading to labor relations consultant. We are consulted for evaluation.
Severe s/p AVR 05/23/25
MV CAD s/p CAB 05/23/25
Endobronchial bleeding, pulmonary artery injury with endobronchial bleeding
Intubated on MV with double lumen tube
NSTEMI rule/in
Acute hypoxic and hypercarbic respiratory failure
Severe respiratory acidosis
GIB
ABLA
Conditions present PEGGER DOBBY LOOMS
RCA PCI in 1996
Known aortic stenosis with last echo in 2021
Gastric ulcer 15 years ago
Hypertension
Hyperlipidemia
Plan/recommendations
Overall, patient seems to be improved over the last 12 to 24 hours
Feels cough has loosened up a little bit, improved
Has not received any inhaler or nebulized therapy in the last 12 to 16 hours
Chest x-ray today with continued improvement
Hemoptysis, in the setting of pulmonary artery injury. S/p coiling of the bleeding artery, no further hemoptysis
Status post bronchoscopy 05/24, clearing of blood clots, no active bleeding noted
CT chest obtained today
Adequate aeration of the lung, interstitial abnormality noted
There may be some secretions and plugs in the 2nd and 3rd generation airway right lower lobe
Extensive discussion regarding pathophysiology of cough
I have reviewed this with him during last visit
Now that we know that lung is open and there is no obvious atelectasis, lets focus on suppressing the cough alongside with IS/Acapella
I suspect that he gets into cough spasms and then works extra hard to expectorate when there is nothing to expectorate and this worsens airway irritation
I also suspect that inhaler, nebulized therapy may be acting more as an irritant as opposed to a true bronchodilator/anti-inflammatory
Lets hold off on inhaler/nebulizer going forward. He can have rescue budesonide and rescue albuterol available at time of discharge
Tessalon Perles 200 mg 3 times daily
Robitussin also 3 times daily
Consider Robitussin with codeine at night prior to sleep
Patient understands plan and is appreciative of input
All questions answered
Follow-up with pulmonary in 4 to 6 weeks
Hopefully disposition later today
Diagnostic Data
CXR 05/23/25- No acute radiographic abnormality in the chest
CTA 05/23/25- 1. No thoracic aortic aneurysm or dissection. No pulmonary embolism.
2. No significant acute abnormality identified in the chest, as described above.
3. Moderate coronary artery calcifications.
4. Tiny 4 mm left lower lobe pulmonary nodule, likely benign. If the patient is considered high risk, an optional follow-up noncontrast CT chest can be obtained in 12 months.
ECHO 05/21/25: Severe peak/mean 81/52 mmHg, GUADALUPE 0.8 cm�, LVEF 65%, normal RV size and function, no AI, mild MR
ECG: Sinus rhythm, inferolateral ST segment depression consistent with injury, increased over May 21
Hemoglobin 8.3 BUN and creatinine 19 and 0.8 troponin 2.09, had been 0.1, proBNP is 41
Critical Care time 80 mins -- The patient is admitted for acute critical illness for the treatment of vital organ failure and/or prevention of further life-threatening conditions. Total care includes time spent in review of history, physical exam,
medications, hemodynamic/ventilator parameters, laboratory data, imaging and discussion with house staff, pharmacy, respiratory therapy, bird keeper, and nursing.
Subjective Dataa
Subjective Data
Date of Service:
Date of Service: May 29, 2025
Subjective:
Patient feels cough has improved. He is able to mobilize secretions a bit more today. Not having his myoclonic spasms
Objective Data
Data Reviewed
Vital Signs / I&O / Oxygen:
Vital Signs
Temp Pulse Resp BP Pulse Ox
98.3 F 75 14 122/55 95
05/29/25 04:15 05/29/25 04:11 05/29/25 04:15 05/29/25 04:11 05/29/25 04:15
Intake and Output
05/28/25 05/29/25 05/30/25
06:59 06:59 06:59
Intake Total 1390 / 1390 300 / 300
Output Total 1775 / 1775 750 / 750
Balance -385 / -385 -450 / -450
SaO2 [CPAP] 96
SaO2 [SIMV] 100
SaO2 [A/C] 97
SaO2 95
Nasal Cannula flow liters per 2
minute
Physical Exam
General: Comfortable (Limited exam due to cough spasms)
HEENT: Normocephalic
Cardiovascular: S1-S2
Respiratory: Wheeze (No audible wheeze) and Non-Labored Respirations
GI: Soft and Non Distended
Neurology: Awake, Alert and No Motor Deficits (Moving all extremities)
Skin: Warm
Labs/Micro/Reports
Lab Data
05/29/25 04:10
05/29/25 04:10
--- NOTE | 2025-05-29 07:54 | W.PN.CT ---
Today's Communication / Plan
-
-pod #6
-no issues overnight
-appreciate pulmonary input regarding cough. On Tessalon perles and Robitussin DM. Nebs stopped. Continue IS and acapella
-Underwent bronchoscopy with evacuation of clots, no active bleeding, on 05/24/25
-Empiric antibiotics added by Pulm, Unasyn x 5 days course. To be completed 05/29
-s/p Chest CT on 05/28: no PE, Embolization coils within the lateral right middle lobe with a surrounding consolidation, possible pulmonary infarction. Ground glass opacities within the right lower lobe as well as the posterior middle and upper
lobes. This may represent pneumonitis/pneumonia possibly in the setting of aspiration. Asymmetric edema is also possible. Small left pleural effusion with adjacent atelectasis.
-remains in nsr overnight (had a-fib on pod #3)- tolerates Lopressor 50 bid
-diuresing with Lasix 40 iv bid since 05/27
-follow Hg - 8.6 today (7.8 on 05/28, 8.0 on 05/27, 8.3 on 05/26, 10.3 preop)
-On Protonix 40 iv bid, will undergo EGD/Colonoscopy as an outpatient, Hx of GI bleed/PUD
-current meds (ASA, Plavix, Pravachol, Lopressor 50 bid, Amio, Effexor, Unasyn, Protonix iv bid, Lasix 40 iv bid, Diovan, Feosol)
-2v-CXR today
-check ECG for Qt 444/481 msec (on Amio and Effexor)
-appreciate everyone's input
Assessment / Plan
-
Assessment:
-S/P Status did not with aortic and right atrial cannulation/ Surgical aortic valve replacement (27 mm bioprosthetic)/Coronary artery bypass grafting x 4 (In situ BALLARD to LAD, Ao to RSVG to ramus sequential to OM, Ao to RSVG to RPDA)/Endoscopic vein
harvesting of the right lower extremity/Left atrial appendage exclusion [35 mm device]/Bronchoscopy with clearing of airway, by Dr. Lubin, 05/23/25, pod#6
-Procedure complicated by massive hemoptysis/airway hemorrhage from PA perforation s/p intraop bronchoscopy, and subsequent coil embolization and hemostasis by Dr. Black, 05/23/25
-Severe aortic valve stenosis, symptomatic
-LVEF 60% per [place]
-Multivessel coronary artery disease
-NSTEMI
-History of previous PCI for MIs
-History of GI bleeding/PUD
-Hyperlipidemia
-Hypertension
-Acute postop blood loss/Anemia on preop/chronic anemia (transfused 1u PRBC preop and 4u intraop)
-Intraop Pulmonary artery perforation likely from swan S/P 2 {5pk} plts, coil embolization.
Pulmonary artery perforation is a complication of the surgery
-Acute postop VDRF
-Acute postop pulmonary insufficiency
-Acute postop hypovolemia with subsequent hypervolemia
-Acute postop bronchoscopy 05/24/25 with evacuation of clots, no active bleeding
-Acute postop SVT and A-fib on pod #3 - tx with Amio bolus and drip
-Acute postop hyponatremia
Chest CT with PE protocol 05/28/25:
1. No evidence of pulmonary embolism.
2. Embolization coils within the lateral right middle lobe with a surrounding consolidation, possible pulmonary infarction.
3. There are ground glass opacities within the right lower lobe as well as the posterior middle and upper lobes. This may represent pneumonitis/pneumonia possibly in the setting of aspiration. Asymmetric edema is also possible.
4. Small left pleural effusion with adjacent atelectasis.
Discussed patient care with: Nursing and Care Team
Subjective
Procedure
-S/P Status did not with aortic and right atrial cannulation/ Surgical aortic valve replacement (27 mm bioprosthetic)/Coronary artery bypass grafting x 4 (In situ BALLARD to LAD, Ao to RSVG to ramus sequential to OM, Ao to RSVG to RPDA)/Endoscopic vein
harvesting of the right lower extremity/Left atrial appendage exclusion [35 mm device]/Bronchoscopy with clearing of airway, by Dr. Lubin, 05/23/25
-Procedure complicated by massive hemoptysis/airway hemorrhage from PA swallowing perforation s/p intraop bronchoscopy and subsequent coil embolization and hemostasis by Dr. Black, 05/23/25
-
Date of Service: May 29, 2025
Objective Data
-
PT 15.8 Sec (11.4-14.6) H 05/24/25 04:12
INR 1.23 05/24/25 04:12
APTT 31.7 Sec (23.4-35.0) 05/23/25 19:16
Vital Signs
Vital Signs
Temp Pulse Resp BP Pulse Ox
98.5 F 67 15 125/52 95
05/28/25 23:36 05/28/25 23:30 05/28/25 23:36 05/28/25 23:31 05/28/25 23:36
CT Intake/Output/Weight
05/28/25 05/28/25 05/29/25
06:59 18:59 06:59
Intake Total 660 / 1390 60 / 300 240 / 300
Output Total 500 / 1775 525 / 525 0 / 525
Balance 160 / -385 -465 / -225 240 / -225
SaO2: 95
Physical Exam
-
General: Awake and AOx3
Cardiovascular: Regular rate & rhythm, No Murmurs and No Rub
Respiratory: Decreased Breath Sounds (R base>L.)
Incision: Clean, Dry and Dressing Intact
Extremities: Edema +2 (feet b/l)
Abdomen: soft, nondistended, nontender, + bowel sounds.
Data Reviewed
-
Lab Results: Results Reviewed
Medications: Active Meds Reviewed
Chest X-Ray: Report Reviewed and Image Reviewed
CT Scan: Report Reviewed
ECG: Report Reviewed and Image Reviewed
--- NOTE | 2025-05-29 08:10 | W.DCSUMMARY ---
Discharge Summary
Discharge Data
Date of Admission: 05/21/25
Date of Discharge: 05/29/25
-
Pending Results: No
Hospital Course
Primary care physician: Adis Perkins
Outpatient cosmetologist apprentice: Jerry ROBERTSON)
Inpatient consultants: [facility]
Procedures:
1. AVR, CABG, left atrial appendage clip
2. bronchoscopy
3. Coiling of PA perforation
Primary Diagnosis:
1. NSTEMI/triple vessel coronary disease (prior BMS ti RCA (1996)
Secondary Diagnoses:
1. severe aortic stenosis
2. History of GI bleeding/PUD
3. Hyperlipidemia
4. Hypertension
5. Massive hemoptysis/airway hemorrhage from iatrogenic PA perforation
Pulmonary artery perforation is a complication of the surgery
-Acute postop VDRF
-Acute postop blood loss/Anemia on preop/chronic anemia (transfused 1u PRBC preop and 4u intraop)
-Acute postop pulmonary insufficiency
-Acute postop hypovolemia with subsequent hypervolemia
-Acute postop SVT and paroxysmal A-fib
-Acute postop hyponatremia
HPI: 74-year-old male with a PMHx of CAD with prior IVMI s/p BMS x 2 to RCA (1996), aortic stenosis (2021), HTN, HLD, prior gastric ulcer (~15 years ago), and anxiety/depression, presented to [facility] on 05/20/25 with complains of chest discomfort,
dypnea, lightheadedness, and fatigue. patient ruled in for NSTEMI with max troponin 5.4. Of note, admission hemoglobin was 7.8. He denied any recent dark or tarry stools or known history of anemia. GI was consulted and recommended
EGD/Colonoscopy.
Hospital course: TTE reported a normal EF, NRWMA, severe with a peak/mean gradient of 81/52, respectively, GUADALUPE of 0.8, and stage II diastolic dysfunction. Patient reported 6 out of 10, nonradiating, chest pain that waxes and wanes on 05/22. He
denied any palpitations, lightheadedness, dizziness, nausea, or dyspnea. An EKG showed ST abnormality and troponin's were trended. Colonoscopy/endoscopy were held and he underwent a C with Dr. Soria which revealed multivessel coronary artery
disease including left main disease. Cardiac surgery was consulted for evaluation of severe, symptomatic aortic stenosis and multivessel CAD. As patient had no active GI bleeding, decision was made to proceed with cardiac surgery. On 05/23/2025,
patient taken to the operating room and aortic valve replacement number 27 mm bioprosthetic, CABG x 4 (BALLARD�LAD; SVG�RI and OM; SVG�RPDA), and left atrial appendage exclusion #[address] Rodolfo Lubin. Patient noted to have hemoptysis from ET
tube. Bronchoscopy was performed by pulmonary tax manager in the OR. Lathe Tender was notified and patient brought to User Interface Artist for critical embolization of right PDA perforation. For further details please see operative notes. Patient remained
intubated overnight. Bronchoscopy was performed on postoperative day #1 and patient extubated. Levophed was weaned off. Amiodarone and beta-fermin were resumed. Empiric Unasyn x 5-day course was added. Bilateral groin sheath were discontinued.
Aspirin and Plavix were held. Patient was extubated at 1445 on postoperative day #1. On postoperative day #2, [place], A-line, chest tubes were removed. Aspirin and Plavix were resumed. Patient was diuresed daily. On postoperative day #3, patient
developed paroxysmal atrial fibrillation lasting approximately 4 hours and was treated with amiodarone bolus and infusion. He converted to sinus rhythm. Patient remained in sinus rhythm without further episodes of arrhythmia. Patient continued
with intermittent hacking cough and albuterol/Pulmicort were discontinued by pulmonary. Patient underwent follow-up CT PE protocol which reported expected small right PE infarct and no pulmonary embolism. On postoperative day #6, temporary atrial
and ventricular wires were clipped to skin level. Empiric Unasyn dosing was completed. Patient ambulated in halls without difficulty. Lasix was transitioned to 20 mg p.o. daily. Patient will continue on Tessalon Perles, Robitussin, and Hycodan
syrup for intermittent cough per pulmonary. Labs on day of discharge: WBC 9.9; hemoglobin 8.6 (increased from 7.8); creatinine 1.0. Patient will be discharged on amiodarone 200 mg twice daily x 14 days then transition to 200 mg daily for postop
PAF and will be followed by transitional care nurse team. Patient will need to follow-up with GI for endoscopy as an outpatient. Patient will follow-up with Dr. CAMELIA Mccall for cardiology.
Home medication changes:
Valsartan 80mg>decreased to 40mg
NEW:
Amiodarone for post op AF
Toprol XL 100mg/d for heart rate
Plavix for CABG graft patency
Ferrous sulfate for anemia
Discharge Plan
-
Patient Disposition: Home (Routine Discharge)
Discharge Diagnosis/Procedures: AVR, CABG x 4, left atrial appendage clip. Coil of right pulmonary artery (05/23/25)
Condition: Good
Diet: Low Cholesterol and Low Sodium
Activity: No strenuous activity
Driving Restrictions: Not until seen by your Dr
Bathing Restrictions: OK to Shower
Others Tests: CXR in 1 week
Other Services: Cardiac Rehab
Specialty Instructions: Weigh Daily- Call MD for wt gain/loss 3 lbs overnight/5 lbs in 1 week
Referrals:
CT Transitional Care Nurse [Outside] - in one to two days
Referral Note:
The Cardiothoracic Transitional Care Nurse will call you to set up a visit in 1-2 days.
[facility] [Outside]
Referral Note: Cardiac Rehab Orientation appointment is on , 06/26/2025@ 1130am.
The Cardiac Rehab gym is located on the first floor of the [facility].
Adis Perkins PA [Family Provider, Family Practice] - in four to six weeks
Referral Note: Please make an appointment in four to six weeks.
Sherita Hayward, DO [Active, Pulmonary Medicine] - in four to six weeks
Referral Note: cxr in 4 weeks
Keke Veras CRNP [Specified Professional Personl, Cardiology] - 06/30/25 11:00 am
Yesi Augustin CRNP [Specified Professional Personl, Cardiac Surgery] - 06/18/25 11:30 am
Additional Discharge Medication Instructions: Valsartan 80mg decreased to 40mg daily
Prescriptions:
New
benzonatate 100 mg Capsule
200 mg PO TIDPRN PRN (Reason: cough) Qty: 30 1RF
ferrous sulfate [FeroSul] 325 mg (65 mg iron) Tablet
325 mg PO DAILY Qty: 30 1RF
acetaminophen 325 mg Tablet
650 mg PO Q4HPRN PRN (Reason: mild pain,headache,temp >101F ) Qty: 0 0RF
clopidogrel 75 mg Tablet
75 mg PO DAILY Qty: 30 1RF
gabapentin 100 mg Capsule
100 mg PO TID Qty: 30 0RF
metoprolol succinate [Toprol XL] 100 mg tablet extended release 24 hr
100 mg PO DAILY Qty: 30 1RF
tramadol 50 mg Tablet
50 mg PO Q6HPRN PRN (Reason: moderate pain) Qty: 20 0RF
valsartan 40 mg Tablet
40 mg PO DAILY Qty: 30 1RF
amiodarone 200 mg tablet
200 mg PO BID Qty: 60 1RF
Rx Instructions:
200mg BID x 14 days, then 200mg daily
dextromethorphan-guaifenesin 10-100 mg/5 mL Syrup
5 ml PO Q4HPRN PRN (Reason: cough) Qty: 30 1RF
hydrocodone-homatropine [Hycodan] 5-1.5 mg/5 mL (5 mL) Solution
5 ml PO Q4HPRN PRN (Reason: cough) Qty: 60 0RF
cyclobenzaprine 10 mg Tablet
5 mg PO Q8HPRN PRN (Reason: muscle spasm) Qty: 10 0RF
furosemide 20 mg Tablet
20 mg PO DAILY Qty: 30 0RF
Continued
pravastatin 40 mg Tablet
40 mg PO HS Qty: 0 0RF
venlafaxine 150 mg Capsule,Extended Release 24hr
150 mg PO HS Qty: 0 0RF
aspirin 81 mg Tablet
81 mg PO DAILY Qty: 0 0RF
Discontinued
valsartan 80 mg Tablet
80 mg PO DAILY
Discharge Orders:
Discharge Patient (As Directed); Ordered 05/29/25
Ordered By: Irasema Nova
Care Plan Goals
Care Plan Goals:
Problem: Readiness for enhanced knowledge related to diagnosis and treatment plan
Goal: Understand your diagnosis and treatment plan needs, including medications if applicable.
Instructions: Know your diagnosis, underlying causes and treatment plan options, including medications if applicable. Consult with your health care team to learn about your diagnosis and treatment plan, including medications if applicable.
Discharge Date and Time
Print Language: WOLOF
[2025-05-29 08:17] VITALS: BP 182/82
[2025-05-29 08:31] VITALS: BP 182/82; PULSE 82; O2SAT 94
--- NOTE | 2025-05-29 08:35 | PTCARENOTE ---
Received pt from cnc machinist 2nd shift RN; pt AAOX3 and resting comfortably in chair; NSR on monitor and VSS; Epicardial A/V wries insulated; Lungs diminished; IS to 1250; positive bowel sounds; pt voiding yellow urine; +1 lower extremity edema noted;
palpable pulses throughout; all surgical sites C/D/I; see nursing documentation for further details.
[2025-05-29 08:53] VITALS: BP 138/65
[2025-05-29] MEDS: SENOKOT-S 1 TABLET PO (08:54)
[2025-05-29] MEDS: NSS (PRESERVATIVE FREE) 10 ML IV (08:54)
[2025-05-29] MEDS: FEOSOL 325 MG PO (08:54)
[2025-05-29] MEDS: DIOVAN 40 MG PO (08:54)
[2025-05-29] MEDS: PROTONIX IV 40 MG IV (08:54)
[2025-05-29] MEDS: PLAVIX 75 MG PO (08:54)
[2025-05-29] MEDS: LASIX 20 MG PO (08:54)
[2025-05-29] MEDS: LOPRESSOR 50 MG PO (08:54)
[2025-05-29] MEDS: MAGNESIUM OXIDE 400 MG PO (08:55)
[2025-05-29] MEDS: LOW STRENGTH ASPIRIN 81 MG PO (08:55)
[2025-05-29] MEDS: NEURONTIN 100 MG PO (08:55)
[2025-05-29] MEDS: PACERONE 200 MG PO (08:55)
[2025-05-29] MEDS: VITAMIN C 500 MG PO (08:55)
[2025-05-29] MEDS: ROBITUSSIN DM 5 ML PO (08:58)
[2025-05-29] MEDS: TESSALON PERLES 200 MG PO (08:58)
--- NOTE | 2025-05-29 09:07 | PTCARENOTE ---
Epicardial A/V wires cut by LISBETH.
--- NOTE | 2025-05-29 09:53 | W.PN.CARDCBS ---
Today's Communication / Plan
-
Clinically much improved. Hemoglobin at 8.6. Continue aspirin and Plavix.
Respiratory status much improved.
Continue metoprolol, valsartan, and Lasix 20 mg p.o. daily.
Okay for discharge from cardiology standpoint
Impression / Plan
-
Primary Skin Diving Teacher: Dr. Edwards of [facility] in [place], [place],
Assessment:
Status post CABG with BALLARD to LAD, vein graft to ramus sequential to OM, vein graft to right PDA), AVR number 27 mm bioprosthetic on 05/23/2025
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
CAD s/p RCA PCI with bare-metal stents x2 1996
Inferior ID [id number]
History of gastric ulcer ~15 years ago
Severe
HTN
HLD
ECHO 05/21/25: Severe peak/mean 81/52 mmHg, GUADALUPE 0.8 cm�, LVEF 65%, normal RV size and function, no AI, mild MR
Catheterization 05/22/2025:
CONCLUSIONS
1. Significant multivessel coronary artery disease.
2. Known severe aortic stenosis by most recent echocardiogram this admission.
Plan:
-Surgical aortic valve replacement (27 mm bioprosthetic)/Coronary artery bypass grafting x 4 (In situ BALLARD to LAD, Ao to RSVG to ramus sequential to OM, Ao to RSVG to RPDA)/Endoscopic vein harvesting of the right lower extremity/Left atrial
appendage exclusion [35 mm device]/Bronchoscopy with clearing of airway, by Dr. Lubin, 05/23/25, pod#4. 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
embolization and hemostasis by Dr. Black, 05/23/25. Status post bronchoscopy with actuation of clots 05/24
-doing well from cardiac standpoint
-remains in SR on review of tele with occasional PVCs, however no recurrence of afib. continue po amiodarone and BB
-pulm following for continued respiratory issues. abx course completed. continue IS
-continue diuresis Lasix 20 mg p.o. daily
-hgb improved at 8.6. Continue on DAPT
-Blood pressure stable. Continue Lopressor 50 mg daily, valsartan 40 mg daily
-Cardiac rehab
-Okay for discharge.
-Op cardiac follow up arranged
-d/w patient
Progress Note - Skin Diving Teacher
Subjective
Date of Service: May 29, 2025
Feels well. Denies chest pains or shortness of breath
Objective
Labs:
05/29/25 04:10
05/29/25 04:10
Labs
Hgb 8.6 g/dL (13.0-18.0) L 05/29/25 04:10
Hct 26.0 % (39.0-52.0) L 05/29/25 04:10
Plt Count 302 10^3/uL (130-400) D 05/29/25 04:10
PT 15.8 Sec (11.4-14.6) H 05/24/25 04:12
INR 1.23 05/24/25 04:12
APTT 31.7 Sec (23.4-35.0) 05/23/25 19:16
Sodium 135 mmol/L (135-145) 05/29/25 04:10
Potassium 4.0 mmol/L (3.5-5.1) 05/29/25 04:10
BUN 23 mg/dl (9-20) H 05/29/25 04:10
Creatinine 1.0 mg/dL (0.7-1.3) 05/29/25 04:10
Glucose 114 mg/dl (70-99) H 05/29/25 04:10
Vital Signs and I&O:
Vital Signs
Temp Pulse Resp BP Pulse Ox
97.8 F 78 20 138/65 95
0821/25 08:00 05/29/25 09:00 05/29/25 08:00 05/29/25 08:54 05/29/25 09:12
Vital Signs
Temp Pulse Resp BP Pulse Ox
97.8 F 78 20 138/65 95
05/29/25 08:00 05/29/25 09:00 05/29/25 08:00 05/29/25 08:54 05/29/25 09:12
Intake & Output
05/27/25 05/28/25 05/29/25 05/30/25
06:59 06:59 06:59 06:59
Intake Total 2180.3 / 2380.3 1390 / 1390 300 / 300
Output Total 2725 / 3125 1775 / 1775 750 / 750
Balance -544.7 / -744.7 -385 / -385 -450 / -450
Physical Exam
Physical Exam
GEN: No distress, awake, Ox3
HEENT: supple, anicteric, mmm
LUNGS: CTA, no wheezes/rales
CV: Reg, S1/S2, 1/6 syst LSB, no gallop
ABD: soft, BS+, NT/ND
EXT: No edema
NEURO: Gross non-focal
SKIN: sternotomy
--- NOTE | 2025-05-29 10:47 | PTCARENOTE ---
Pt showered self with CHG soap; phototypesetting equipment monitor removed and IV removed; at bedside and discharge paperwork gone over with and all questions answered.
[2025-05-29 10:54] VITALS: BP 123/57
== END 2025-05-29 11:37 | disposition home or self-care (01) | DRG 216 ==
LOC: CVICU 10:18
PROVIDERS: Internal Medicine; Internal Medicine Cardiovascular Disease; Internal Medicine Interventional Cardiology; Nurse Practitioner Adult Health; Nurse Practitioner Family; Physician Assistant Medical; ADMITTING PHYSICIAN Hospitalist; ATTENDING PHYSICIAN Thoracic Surgery (Cardiothoracic Vascular Surgery); CONSULT PHYSICIAN Internal Medicine; CONSULT PHYSICIAN Internal Medicine Cardiovascular Disease; EMERGENCY PHYSICIAN Student in an Organized Health Care Education/Training Program; FAMILY PHYSICIAN Physician Assistant; OTHER PHYSICIAN Internal Medicine
PROC: B2111ZZ Fluoroscopy of Multiple Coronary Arteries using Low Osmolar Contrast (ICD-10-PCS; 2025-05-22)
PROC: 30233N1 Transfusion of Nonautologous Red Blood Cells into Peripheral Vein, Percutaneous Approach (ICD-10-PCS; 2025-05-22)
PROC: 4A023N7 Measurement of Cardiac Sampling and Pressure, Left Heart, Percutaneous Approach (ICD-10-PCS; 2025-05-22)
PROC: B2151ZZ Fluoroscopy of Left Heart using Low Osmolar Contrast (ICD-10-PCS; 2025-05-22)
PROC: 02L Heart and Great Vessels, Occlusion (ICD-10-PCS; 2025-05-23)
PROC: B31S1ZZ Fluoroscopy of Right Pulmonary Artery using Low Osmolar Contrast (ICD-10-PCS; 2025-05-23)
PROC: 021209W Bypass Coronary Artery, Three Arteries from Aorta with Autologous Venous Tissue, Open Approach (ICD-10-PCS; 2025-05-23)
PROC: 0BJ08ZZ Inspection of Tracheobronchial Tree, Via Natural or Artificial Opening Endoscopic (ICD-10-PCS; 2025-05-23)
PROC: 02100Z9 Bypass Coronary Artery, One Artery from Left Internal Mammary, Open Approach (ICD-10-PCS; 2025-05-23)
PROC: 5A1221Z Performance of Cardiac Output, Continuous (ICD-10-PCS; 2025-05-23)
PROC: 02L70CK Occlusion of Left Atrial Appendage with Extraluminal Device, Open Approach (ICD-10-PCS; 2025-05-23)
PROC: 02RF08Z Replacement of Aortic Valve with Zooplastic Tissue, Open Approach (ICD-10-PCS; 2025-05-23)
PROC: 30233R1 Transfusion of Nonautologous Platelets into Peripheral Vein, Percutaneous Approach (ICD-10-PCS; 2025-05-23)
PROC: 06BP4ZZ Excision of Right Saphenous Vein, Percutaneous Endoscopic Approach (ICD-10-PCS; 2025-05-23)
DX: I21.4 Non-ST elevation (NSTEMI) myocardial infarction (principal); J95.1 Acute pulmonary insufficiency following thoracic surgery; J95.821 Acute postprocedural respiratory failure; K25.4 Chronic or unspecified gastric ulcer with hemorrhage; E87.29 Other acidosis; D62 Acute posthemorrhagic anemia; I97.52 Accidental puncture and laceration of a circulatory system organ or structure during other procedure; I47.10 Supraventricular tachycardia, unspecified; E87.1 Hypo-osmolality and hyponatremia; I25.10 Atherosclerotic heart disease of native coronary artery without angina pectoris; I10 Essential (primary) hypertension; E78.00 Pure hypercholesterolemia, unspecified; I35.0 Nonrheumatic aortic (valve) stenosis; F32.A Depression, unspecified; F41.9 Anxiety disorder, unspecified; I28.8 Other diseases of pulmonary vessels; E86.1 Hypovolemia; I48.0 Paroxysmal atrial fibrillation; E87.70 Fluid overload, unspecified; Y84.8 Other medical procedures as the cause of abnormal reaction of the patient, or of later complication, without mention of misadventure at the time of the procedure; I25.2 Old myocardial infarction; Z79.82 Long term (current) use of aspirin; Z79.899 Other long term (current) drug therapy; Z82.49 Family history of ischemic heart disease and other diseases of the circulatory system; Z87.891 Personal history of nicotine dependence; Z95.5 Presence of coronary angioplasty implant and graft
CPT/HCPCS: 37242; 70355; 71045; 71046; 71275; 75741; 80048; 80053; 81003; 81015; 82248; 82330; 82565; 82607; 82728; 82805; 82810; 82947; 82962; 83036; 83540; 83550; 83735; 83880; 84132; 84302; 84443; 84478; 84484; 84520; 85014; 85018; 85025; 85027; 85049; 85610; 85730; 86850; 86900; 86901; 86920; 88305; 88311; 93005; 93306; 93454; 93880; 94002; 94003; 94640; 94667; 97116; 97163; 97167; 99152; 99153; C1894; J2916; P9016; P9073; Q9967

== ENCOUNTER → 2025-06-05 10:59 | Outpatient (REF) | payer OTHER, MEDICARE, SELFPAY | LOC: RAD 10:59 | PROVIDERS: ATTENDING PHYSICIAN Thoracic Surgery (Cardiothoracic Vascular Surgery); FAMILY PHYSICIAN Physician Assistant | DX: J90 Pleural effusion, not elsewhere classified (principal) | CPT/HCPCS: 71046 ==

== ENCOUNTER → 2025-06-26 10:17 | Outpatient (REF) | payer OTHER, MEDICARE, SELFPAY | LOC: RAD 10:17 | PROVIDERS: ATTENDING PHYSICIAN Thoracic Surgery (Cardiothoracic Vascular Surgery); FAMILY PHYSICIAN Physician Assistant | DX: J90 Pleural effusion, not elsewhere classified (principal) | CPT/HCPCS: 71046 ==

== ENCOUNTER → 2025-06-30 12:25 | Outpatient (REF) | payer OTHER, SELFPAY ==
[2025-06-30 14:22] LABS: Hematocrit 35.4 % (39.0-52.0); Hemoglobin 10.7 g/dL (13.0-18.0); Mean Corp Hgb Conc. 30.2 g/dL (33.0-37.0); Mean Corpuscular Volume 87.8 fL (80.0-94.0); Nucleated Red Blood Cells % 0 % (-); Platelet Count 266 10^3/uL (130-400); Red Cell Dist. Width 15.2 % (11.5-14.5)
[2025-06-30 14:56] LABS: Blood Urea Nitrogen 23 mg/dl (9-20); Calcium 9.1 mg/dl (8.4-10.2); Carbon Dioxide 31 mmol/L (22-30); Chloride 103 mmol/L (98-107); Glucose 75 mg/dl (70-99); Potassium 5.3 mmol/L (3.5-5.1); Sodium 137 mmol/L (135-145)
[2025-06-30 15:04] LABS: eGFR > 60.00
== END ==
LOC: REG 12:25
PROVIDERS: ATTENDING PHYSICIAN Nurse Practitioner; FAMILY PHYSICIAN Physician Assistant
DX: I35.0 Nonrheumatic aortic (valve) stenosis (principal); I25.10 Atherosclerotic heart disease of native coronary artery without angina pectoris
CPT/HCPCS: 36415; 80048; 85025

== ENCOUNTER 2025-07-07 10:05 | Outpatient (RCR) | payer OTHER, MEDICARE, SELFPAY | END 2025-07-07 23:59 | disposition home or self-care (01) | LOC: CRHB 10:05 | PROVIDERS: ATTENDING PHYSICIAN Internal Medicine Cardiovascular Disease; FAMILY PHYSICIAN Physician Assistant | DX: Z95.1 Presence of aortocoronary bypass graft (principal); Z95.4 Presence of other heart-valve replacement | CPT/HCPCS: 93797; 93798 ==

== ENCOUNTER 2025-08-05 08:49 | Outpatient (RCR) | payer OTHER, MEDICARE, SELFPAY | END 2025-08-05 09:44 | disposition home or self-care (01) | LOC: CRHB 08:49 | PROVIDERS: ATTENDING PHYSICIAN Internal Medicine Cardiovascular Disease; FAMILY PHYSICIAN Physician Assistant | DX: Z95.1 Presence of aortocoronary bypass graft (principal); I25.10 Atherosclerotic heart disease of native coronary artery without angina pectoris (principal); Z95.4 Presence of other heart-valve replacement | CPT/HCPCS: 93797; 93798 ==

== ENCOUNTER → 2025-08-08 08:44 | Outpatient (REF) | payer OTHER, SELFPAY | LOC: RAD 08:44 | PROVIDERS: ATTENDING PHYSICIAN Physician Assistant | DX: L81.9 Disorder of pigmentation, unspecified (principal) | CPT/HCPCS: 73130; 93923; 93930; 93971 ==

== ENCOUNTER → 2025-08-18 07:52 | Outpatient (REF) | payer OTHER, SELFPAY | LOC: HWRAD 07:52 | PROVIDERS: ATTENDING PHYSICIAN Internal Medicine Nephrology; FAMILY PHYSICIAN Physician Assistant | DX: I10 Essential (primary) hypertension (principal) | CPT/HCPCS: 76770 ==